=== PATIENT | male | born 1945 | race Caucasian/White ===

== ENCOUNTER 2023-08-02 21:14 | Outpatient (CLI) | payer MEDICARE, SELFPAY ==
[2023-08-02 19:02] LABS: Microscopic, Urine URINE MICROSCOPIC (MICROSCOPIC)
[2023-08-02 19:09] LABS: Appearance,Urine CLEAR (Clear); Bilirubin,Urine Negative (Negative); Blood, Urine Negative (Negative); Color,Urine YELLOW (Yellow); Glucose,Urine (UA) Negative (Negative); Ketones,Urine TRACE (Negative); Leukocyte Esterase,Urine Negative (Negative); Nitrate,Urine Negative (Negative); Protein,Urine TRACE (Negative); Specific Gravity, Urine 1.025 (1.005-1.030); Urobilinogen,Urine 0.2 EU/dl (0.2)
[2023-08-02 19:14] LABS: Chloride 99 mmol/L (98-107)
[2023-08-02 19:15] LABS: Potassium 4.1 mmoL/L (3.5-5.1); Sodium 137 mmol/L (136-145)
[2023-08-02 19:17] LABS: Alanine Aminotransferase 20 U/L (12-78); Aspartate Amino Transferase 34 U/L (17-59); Blood Urea Nitrogen 22 mg/dl (9-20); Estimated Glomerular Filt Rate 65 ml/min (>60); GFR (African American) 79 ML/MIN (>60)
[2023-08-02 19:18] LABS: Albumin Level 4.5 g/dl (3.5-5.0); Albumin/Globulin Ratio 1.5 (1.1-1.8); Alkaline Phosphatase 74 U/L (38-126); Anion Gap 14.1 mEq/L (5-15); Bilirubin,Total 0.4 mg/dl (0.2-1.3); Calcium 9.2 mg/dl (8.4-10.2); Carbon Dioxide 28 mmol/L (22.0-30.0); Glucose 96 mg/dl (74-100); Iron 95 ug/dL (49-181); Lipase 137 U/L (23-300); Total Protein,Serum 7.5 g/dl (6.3-8.2)
[2023-08-02 19:23] LABS: Basophils % 0.2 % (0.1-2.0); Eosinophils # 0.1 K/mm3 (0.0-0.4); Eosinophils % 0.9 % (0.1-12.0); Hematocrit 41.4 % (42.0-52.0); Hemoglobin 14.1 g/dL (14.1-18.0); Lymphocytes # 2.4 K/mm3 (0.7-4.5); Lymphocytes % 16.7 % (10-50); Mean Corpuscular HGB Conc 34.2 g/dL (31.8-35.4); Mean Corpuscular Hemoglobin 33.2 pg (27.0-31.2); Mean Corpuscular Volume 97.1 fl (80-94); Mean Platelet Volume 10.7 fl (7.4-10.4); Monocytes % 6.7 % (1.7-9.3); Neutrophils % 75.5 % (37.0-80.0); Platelet Count 185 K/mm3 (142-424); Red Blood Count 4.26 M/mm3 (4.60-6.20); Red Cell Distribution Width 13.1 % (11.5-17.5); White Blood Count 14.5 K/mm3 (4.8-10.8)
[2023-08-02 19:27] LABS: Total Iron Binding Capacity 310 ug/dL (261-462)
[2023-08-02 19:34] LABS: 25-OH Vitamin D, Total 52.8 ng/mL (30-100); Free T4 (Free Thyroxine) 1.38 ng/dl (0.78-2.19)
[2023-08-02 19:55] LABS: Erythrocyte Sedimentation Rate 16 mm/hr (0-20)
[2023-08-02 20:11] LABS: Chol/HDL Ratio 3.4 (1-3.5); Cholesterol 117 mg/dl (140-200); HDL Cholesterol 34 mg/dl (40-60); Triglycerides 100 mg/dl (30-150); VLDL Cholesterol 20 mg/dL (0-40)
[2023-08-02 20:22] LABS: Direct LDL Cholesterol 60.97 mg/dL (100-129)
[2023-08-02 20:37] LABS: C-Reactive Protein 0.6 mg/L (0-4)
[2023-08-02 20:42] LABS: Prostate Specific Ag Screen 0.4 ng/ml (0.0-4.0); Thyroid Stimulating Hormone 0.65 uIU/mL (0.465-4.68)
[2023-08-02 21:01] LABS: Vitamin B12 239 pg/mL (239-931)
[2023-08-02 21:42] LABS: Bacteria,Urine Trace /lpf; Mucus,Urine 1+ /lpf; Squamous Epithelial Cell,Urine Occasional #/hpf (0-5)
[2023-08-04 06:25] LABS: HBsAg Screen Negative (Negative); HCV Ab Non Reactive (Non Reactive); Hep A Ab, IGM Negative (Negative); Hep B Core Ab, IgM Negative (Negative)
== END 2023-08-02 23:59 ==
PROVIDERS: PCP Nurse Practitioner Family; Visit Provider Nurse Practitioner Family
DX: E55.9 Vitamin D deficiency, unspecified (principal); R63.4 Abnormal weight loss; R53.83 Other fatigue; K52.9 Noninfective gastroenteritis and colitis, unspecified; Z12.5 Encounter for screening for malignant neoplasm of prostate; R68.2 Dry mouth, unspecified; D64.9 Anemia, unspecified; E78.5 Hyperlipidemia, unspecified
CPT/HCPCS: 80053; 80061; 80074; 81001; 82306; 82607; 82728; 83540; 83550; 83690; 84439; 84443; 85025; 85651; 86140; 87086; G0103

== ENCOUNTER 2023-08-03 10:54 | Outpatient (CLI) | payer MEDICARE, SELFPAY ==
[2023-08-03 10:59] LABS: Adenovirus F 40/41, stool Not Detected (NotDetected); Astrovirus Not Detected (NotDetected); Campylobacter Not Detected (NotDetected); Clostridium Difficile A/B, PCR Not Detected (NotDetected); Cryptosporidium Not Detected (NotDetected); Cyclospora Cayetanesis Not Detected (NotDetected); Entamoeba histolytica Not Detected (NotDetected); Enteroaggregative E coli Not Detected (NotDetected); Enteropathogenic E coli Not Detected (NotDetected); Enterotoxigenic E coli Not Detected (NotDetected); Giardia lamblia Not Detected (NotDetected); Norovirus Not Detected (NotDetected); Plesimonas Shigalloides, PCR Not Detected (NotDetected); Rotavirus A Not Detected (NotDetected); Salmonella, PCR Not Detected (NotDetected); Shiga-like toxin E coli Not Detected (NotDetected); Shigella Enterovasive E coli Not Detected (NotDetected); Vibrio Cholerae Not Detected (NotDetected); Vibrio, PCR Not Detected (NotDetected); Yersinia Entercolitica, PCR Not Detected (NotDetected)
[2023-08-03 14:21] LABS: Occult Blood,Stool Negative (Negative)
[2023-08-08 07:53] LABS: Sapovirus Not Detected (NotDetected)
== END 2023-08-03 23:59 ==
PROVIDERS: PCP Nurse Practitioner Family; Visit Provider Nurse Practitioner Family
DX: R19.7 Diarrhea, unspecified; R53.83 Other fatigue; R63.4 Abnormal weight loss
CPT/HCPCS: 82272; 87045; 87506; G0328

== ENCOUNTER 2023-08-04 13:35 | Outpatient (CLI) | payer MEDICARE, SELFPAY ==
--- NOTE | 2023-08-04 13:35 | CT_ITS ---
FINAL REPORT TECHNIQUE: Axial CT images of the abdomen and pelvis were obtained before and after the administration of IV contrast. This study was performed with techniques to keep radiation doses as low as reasonably achievable (ALARA). Individualized dose reduction techniques using automated exposure control or adjustment of mA and/or kV according to the patient''s size were employed. CLINICAL HISTORY: RUQ pain, chronic diarrhea, unintentional wt loss COMPARISON: None FINDINGS: Abdomen: There is mild atelectasis or scar in the right lung base. The heart is normal in size. There is a cyst in the medial segment of the left hepatic lobe measuring 11 mm. There is mild nonspecific biliary ductal dilatation. The spleen is unremarkable. No adrenal masses present. The pancreas has an unremarkable appearance. There are multiple bilateral renal cysts. The aorta is normal in caliber. There is no free fluid or adenopathy. No mass or abnormal fluid collection is seen. Precontrast images demonstrate no evidence of nephrolithiasis. Pelvis: The appendix is not visualized. The urinary bladder is unremarkable. No inflammatory process is seen. There is no evidence of mass or adenopathy. There is a moderate stool burden. There is no evidence of bowel obstruction. IMPRESSION: Mild biliary duct dilatation, nonspecific. If indicated, MRCP may be helpful. No acute inflammatory process. Reviewed, Interpreted and Dictated by Mayito Clarke III, MD Transcribed by Breonna Osorio Authenticated and [facility]
[2023-08-04] MEDS: SODIUM CHLORIDE 0.9% 10ML SYR (RAD ONLY) 10 ML IV (13:59)
[2023-08-04] MEDS: IOPAMIDOL-370 (76%);100ML BOTTLE 75 ML IV (14:00)
== END 2023-08-04 23:59 ==
PROVIDERS: PCP Nurse Practitioner Family; Visit Provider Nurse Practitioner Family
DX: K52.9 Noninfective gastroenteritis and colitis, unspecified (principal); R10.11 Right upper quadrant pain; R53.83 Other fatigue; R63.4 Abnormal weight loss
CPT/HCPCS: 74178; Q9967

== ENCOUNTER 2023-08-09 07:41 | Day surgery (SDC) | payer MEDICARE, SELFPAY ==
[2023-08-08 15:18] VITALS: BMI 23.6
[2023-08-09] MEDS: LACTATED RINGERS 1000ML 1,000 ML 25 ML IV (07:53)
[2023-08-09 07:54] VITALS: BP 157/56; PULSE 72; RESP 18; TEMP 36.1; O2SAT 100
--- NOTE | 2023-08-09 08:03 | P.PNANES_ITS ---
[facility] Disclaimer: The information contained in this section may have been updated after the patient was seen, as this information can be updated by other users. Medical History History of MN (myocardial infarction) HLD (hyperlipidemia) HTN (hypertension) Surgical History History of coronary artery bypass graft History of intravascular stent placement Family History Father Cancer Social History Smoking Status: Current every day smoker alcohol intake: never substance use type: denies use current occupational status: retired Travel in the last 8 weeks: None household members: spouse housing: house lives independently: Yes marital status: [facility] Anesthesia Checklist Patient Identification Patient Identification: Arm Band and Family Structural Data Admitted From: Home Planned Operative Procedure/s: EGD, Colonosopy Consent for Planned Operative Procedure(s) Verified: Yes Verified Documents: Surgical Consent NPO Status Verified Time NPO: 00:00 Additional verifications Anesthesia Reactions: No Hx Blood Transfusions: Yes Blood Transfusion Reaction: No Cephalosporin Allergy: No Previous Colonoscopy: Yes Airway Assessment Mallampati Score:: Class II C-Spine Mobility Assessed: Yes TMJ Mobility Assessed: Yes Dentition: Good Dentition Neurological Assessment Level of Consciousness: Awake, Alert, Appropriate and Follows Commands Hx Seizures: No Numbness or tingling in extremities: No Anesthesia Plan Anesthesia Risk discussed: Yes ASA Class: III Anesthesia Type: MAC Preoperative Comments Pre-Operative Comments: History of MN 21 years ago. Stents.
[2023-08-09 08:54] VITALS: O2SAT 100
--- NOTE | 2023-08-09 09:25 | HMH.SCOPE ---
Procedure: Date: 08/09/23 Patient Date of :: 1945 Procedure Performed:: Colonoscopy Indications:: The patient is a 77-year-old who presents for colonoscopy evaluation of chronic diarrhea. Patient reports diarrhea symptoms since early May. The patient has had multiple liquid bowel movements a day. The patient denies nocturnal stools. The patient has unremarkable stool pathogen testing. Performing Provider:: Yinka Simons MD Referring Provider:: Betty Fatima APRN Sedation:: See RN notes Procedure:: After placing the patient in the left lateral decubitus position, the colonoscopy was gently inserted into the rectum and under direct visualization advanced to the cecum which was identified by transillumination in the right lower quadrant, identification of the ileocecal valve, appendiceal orifice, and cecal strap. Color, texture, mucosa, and anatomy of the colon were carefully examined with the scope. Findings:: The quality of the bowel preparation was good. The patient tolerated the procedure well. There was a small (4 to 6 mm) sessile polyp in the descending colon. The polyp was removed by cold snare polypectomy. Polypectomy was complete and the polyp was retrieved. There was a small (4 to 6 mm) sessile polyp in the distal ascending colon. Polyp was removed by cold snare polypectomy. Polypectomy was complete and the polyp was retrieved. Random colon biopsies were obtained throughout the colon to evaluate for microscopic colitis. Internal hemorrhoids were seen on retroflexion view of the rectum. Recommendations:: Await pathology results Follow-up in GI office for further evaluation of abdominal pain and diarrhea Complications:: none Estimated blood obtained (mL): 0 Colonoscopy Component Colonoscopy Component Was a colonoscopy performed during today's procedure?: Yes Recommended follow up colonoscopy of at least 10 years?: Yes
[2023-08-09 09:27] VITALS: BP 93/37; PULSE 68; RESP 15; TEMP 36.7; O2SAT 98
--- NOTE | 2023-08-09 09:29 | HMH.SCOPE ---
Procedure: Date: 08/09/23 Patient Date of :: 1945 Procedure Performed:: EGD Indications:: The patient is a 77-year-old who presents for EGD evaluation of upper abdominal pain and diarrhea Performing Provider:: Yinka Simons MD Referring Provider:: Betty Fatima APRN Sedation:: See RN records Procedure:: The gastroscope was gently passed through the incisoral orifice into the oral cavity and under direct visualization the esophagus was intubated. The endoscope was passed down the esophagus, through the stomach, and into the duodenum. Color, texture, mucosa, and anatomy of the esophagus, stomach, and duodenum were carefully examined with the scope. The patient tolerated the procedure well Findings:: The esophagus appeared normal. The Z-line was regular and measured at 40 cm. There was mild inflammation characterized by erythema in the gastric antrum and body. Biopsies were obtained with a cold forceps for histology. The duodenum appeared normal. Biopsies were obtained with a cold forceps for histology Recommendations:: Wait pathology results Move forward to colonoscopy for evaluation of abdominal pain and diarrhea Complications:: None Estimated blood obtained (mL): 0 Colonoscopy Component Colonoscopy Component Was a colonoscopy performed during today's procedure?: No
[2023-08-09 09:37] VITALS: BP 96/49; PULSE 84; RESP 17; O2SAT 99
[2023-08-09 09:50] VITALS: BP 122/79; PULSE 68; RESP 17; O2SAT 98
== END 2023-08-09 10:15 | disposition home or self-care (01) ==
PROVIDERS: Internal Medicine; PCP Nurse Practitioner Family; Visit Provider Internal Medicine Gastroenterology
PROC: 0DJ08ZZ Inspection of Upper Intestinal Tract, Via Natural or Artificial Opening Endoscopic (ICD-10-PCS; CPT 43235; principal; 2023-08-09 09:00)
DX: K52.9 Noninfective gastroenteritis and colitis, unspecified (principal); K64.8 Other hemorrhoids; R10.10 Upper abdominal pain, unspecified; K29.50 Unspecified chronic gastritis without bleeding; B96.81 Helicobacter pylori [H. pylori] as the cause of diseases classified elsewhere; K31.A0 Gastric intestinal metaplasia, unspecified; D12.2 Benign neoplasm of ascending colon; K52.832 Lymphocytic colitis; D12.4 Benign neoplasm of descending colon
CPT/HCPCS: 43239; 45385; 88305; 88342; J2704

== ENCOUNTER 2023-09-15 08:06 | Outpatient (CLI) | payer MEDICARE, SELFPAY ==
--- NOTE | 2023-09-15 08:07 | MR_ITS ---
FINAL REPORT CLINICAL HISTORY: diarrhea COMPARISON: None FINDINGS: Multiplanar MR imaging of the abdomen was performed without and with contrast. There is a benign-appearing cysts in the medial segment of the left lower lobe of the liver measuring 1.3 cm. The liver is otherwise homogeneous. There is prominence of the extrahepatic biliary system. The common duct measures 9 mm in diameter. There is no evidence of choledocholithiasis. There is no definite intrahepatic ductal dilatation. The gallbladder has an unremarkable appearance. The spleen, pancreas, and adrenal glands are unremarkable. There are benign-appearing cysts in the kidneys bilaterally. Dominant cyst in the posterior left kidney measures up to 1.5 cm. There is linear increased signal in the posterior left kidney associated with the dominant cyst probably related to proteinaceous debris. There is no evidence of enhancement. No abnormal fluid collection is seen. No abnormal contrast enhancement is seen on the postcontrast images. IMPRESSION: Distention of the common bile duct without definite choledocholithiasis and no definite intrahepatic biliary ductal dilatation. Benign cyst in the left lobe of the liver. Complex and simple cysts in the kidneys bilaterally. Reviewed, Interpreted and Dictated by Demetrio Miner MD Transcribed by Breonna Osorio Authenticated and [facility]
[2023-09-15 08:53] LABS: Blood Urea Nitrogen 15 mg/dl (9-20); Estimated Glomerular Filt Rate 54 ml/min (>60); GFR (African American) 65 ML/MIN (>60)
[2023-09-15] MEDS: SODIUM CHLORIDE 0.9% 10ML SYR (RAD ONLY) 10 ML IV (09:40)
[2023-09-15] MEDS: SODIUM CHLORIDE 0.9% 50ML BAG 35 ML IV (09:40)
[2023-09-15] MEDS: GADOTERIDOL INJ 17ML SYRINGE 15 ML IV (09:41)
== END 2023-09-15 23:59 ==
LOC: RAD 08:07
PROVIDERS: PCP Nurse Practitioner Family; Visit Provider Nurse Practitioner Family
DX: R10.11 Right upper quadrant pain; K52.9 Noninfective gastroenteritis and colitis, unspecified; R53.83 Other fatigue; R63.4 Abnormal weight loss; Z68.26 Body mass index [BMI] 26.0-26.9, adult
CPT/HCPCS: 36415; 74183; 76376; 82565; 84520; A9576

== ENCOUNTER 2023-09-27 13:01 | Observation (INO) | payer MEDICARE, SELFPAY ==
[2023-09-27] VITALS (16 sets, daily range): BP systolic 91–131; BP diastolic 54–70; PULSE 48–60; RESP 12–20; TEMP 35.1–36.6; O2SAT 95–100; BMI 25.9
--- NOTE | 2023-09-27 12:59 | ECG_ITS ---
APPROVED REPORT Exam: Resting ECG HR:53 bpm ECG Measurements Heart Rate 53 AXES CO 191 P 39 QRSd 173 QRS -41 QT 475 T 50 QTc 457 Conclusion SINUS BRADYCARDIA WITH OCCASIONAL VENTRICULAR PREMATURE COMPLEXES WITH OCCASIONAL SUPRAVENTRICULAR PREMATURE COMPLEXES LEFT AXIS DEVIATION [QRS AXIS < -30] RIGHT BUNDLE BRANCH BLOCK [120+ ms QRS DURATION, UPRIGHT V1, 40+ ms S IN I/aVL/V4/V5/V6] ABNORMAL ECG Electronically signed by : MARCOS REED, 09/27/2023 23:11:38
--- NOTE | 2023-09-27 13:11 | PC.NURSE ---
pt placed with chase hugger, warm fluids and warm blankets for rectal temp of 95.1.
--- NOTE | 2023-09-27 13:23 | XR_ITS ---
FINAL REPORT CLINICAL HISTORY: weakness, soa, cp FINDINGS: SINGLE-VIEW CHEST There is cardiomegaly. The patient is status post median sternotomy. There is right base atelectasis versus scar. There is no pneumothorax. IMPRESSION: Right base atelectasis versus scar. Reviewed, Interpreted and Dictated by Mayito Clarke III, MD Transcribed by Poly Bryant Authenticated and [facility]
--- NOTE | 2023-09-27 13:27 | PC.NURSE ---
Respiratory notified of VBG
--- NOTE | 2023-09-27 13:31 | CT_ITS ---
FINAL REPORT CLINICAL HISTORY: stroke protocol FINDINGS: Axial images of the head were obtained without contrast. Coronal reformatted images were also obtained. This study was performed with techniques to keep radiation doses as low as reasonably achievable (ALARA). Individualized dose reduction techniques using automated exposure control or adjustment of mA and/or kV according to the patient's size were employed. There is generalized age-appropriate atrophy. Periventricular low-attenuation areas are seen consistent with mild chronic ischemic changes. There is no evidence of intracranial hemorrhage or mass. There is no evidence of acute infarct. There is no evidence of shift of the midline structures. No skull abnormality is seen on the bone window images. IMPRESSION: Atrophy and mild periventricular chronic ischemic changes. No acute intracranial abnormality identified. Reviewed, Interpreted and Dictated by Mayito Clarke III, MD Transcribed by Poly Bryant Authenticated and [facility]
--- NOTE | 2023-09-27 13:31 | PC.NURSE ---
Called Radiology to notify of stroke protocol CT scan
[2023-09-27 13:32] LABS: Basophils # 0.1 K/mm3 (0-0.2); Basophils % 0.4 % (0.1-2.0); Eosinophils # 0.1 K/mm3 (0.0-0.4); Eosinophils % 0.6 % (0.1-12.0); Hematocrit 45.1 % (42.0-52.0); Hemoglobin 14.1 g/dL (14.1-18.0); Lymphocytes # 1.7 K/mm3 (0.7-4.5); Lymphocytes % 9.6 % (10-50); Mean Corpuscular HGB Conc 31.4 g/dL (31.8-35.4); Mean Corpuscular Hemoglobin 32.5 pg (27.0-31.2); Mean Corpuscular Volume 103.5 fl (80-94); Mean Platelet Volume 8.5 fl (7.4-10.4); Monocytes # 0.7 K/mm3 (0.1-1.0); Monocytes % 4.1 % (1.7-9.3); Neutrophils # 15.2 K/mm3 (1.8-7.8); Neutrophils % 85.3 % (37.0-80.0); Platelet Count 190 K/mm3 (142-424); Red Blood Count 4.36 M/mm3 (4.60-6.20); Red Cell Distribution Width 13.9 % (11.5-17.5); White Blood Count 17.8 K/mm3 (4.8-10.8)
[2023-09-27 13:36] LABS: Alanine Aminotransferase 29 U/L (12-78); Albumin Level 3.7 g/dl (3.5-5.0); Albumin/Globulin Ratio 1.3 (1.1-1.8); Alkaline Phosphatase 58 U/L (38-126); Anion Gap 8.4 mEq/L (5-15); Aspartate Amino Transferase 38 U/L (17-59); Bilirubin,Total 0.4 mg/dl (0.2-1.3); Blood Urea Nitrogen 20 mg/dl (9-20); Calcium 9.2 mg/dl (8.4-10.2); Carbon Dioxide 29 mmol/L (22.0-30.0); Chloride 105 mmol/L (98-107); Creatinine Clearance Estimated 52 mL/min (50-200); Estimated Glomerular Filt Rate 54 ml/min (>60); GFR (African American) 65 ML/MIN (>60); Globulin 2.8 g/dL (1.3-3.2); Glucose 104 mg/dl (74-100); Potassium 4.4 mmoL/L (3.5-5.1); Sodium 138 mmol/L (136-145); Total Protein,Serum 6.5 g/dl (6.3-8.2)
[2023-09-27 13:38] LABS: VBG Base Excess -1.6 mmol/L (-2.4-2.3); VBG HCO3 25.3 mmol/L (23-30); VBG Oxygen Saturation 45.3 % (50-70); VBG PCO2 55.9 mmol/L (35-51); VBG PH 7.27 mmol/L (7.31-7.41); VBG PO2 26.8 mmol/L (28-40)
[2023-09-27 13:41] LABS: Lactate Venous 2.3 mmol/L (0.4-2.0)
[2023-09-27 13:42] LABS: MANUAL DIFFERENTIAL MANUAL DIFFERENTIAL (MANUAL DIFF)
--- NOTE | 2023-09-27 13:45 | HMH.EDGENADL ---
Discharge Plan Disposition Patient Disposition: Admitted Clinical Impressions Clinical Impression: Weakness, Angina pectoris, unstable, Acute dyspnea Discharge ED Provider: Raad Martinez General Adult HPI <Lexa Archibald MD - Last Filed: 09/27/23 15:09> General Chief complaint: Weakness Stated complaint: weakness,itching Time Seen by Provider: 09/27/23 13:05 Mode of Arrival: EMS Source of Information: Patient and EMS Limitations: No Limitations Description of Symptoms (Recalled from ER Triage Doc. by RN): pt to ed via ems c/o weakness. pt states he became itchy, broke out in a rash and became weak. pt states he was at the gas station getting gas and immediately came home. ems reports giving 50mg of benadryl and 500ml of LR in route. History of Present Illness HPI narrative: 77-year-old male history of hypertension, hyperlipidemia, CAD status post 5 vessel CABG and stenting, presenting with weakness, shortness of breath, multiple complaints. Patient states that just prior to arrival, [place] that he was itching on his scalp, face, hands, feet, that he developed a red rash. [place] lightheaded, weak, short of breath. Had a couple episodes of vomiting. No syncope. Was brought here for further evaluation by EMS. Family states that patient seems delayed, not confused, just tired. Patient not currently having any symptoms at this time. Please note that above description of symptoms, in this electronic medical record under categorization of recalled from ER triage doctor by RN are reflective of an initial nursing assessment, however, is not reflective of my full history and physical exam that was personally taken and clarified. Consequentially, this preceding description of symptoms, which may include the patient's categorized chief complaint in the EMR, do not reflect my personal clinical impression, and the ultimate description of history of present illness and patient stated complaints should be deferred to this section of the note. Unless stated otherwise or congruent with this section of the note, additional signs, symptoms, or incongruence should be interpreted as inaccurate with my clinical impression. Related Data Home Medications Medication Instructions Recorded Confirmed losartan 50 mg tablet 50 mg PO DAILY 08/02/23 08/08/23 metoprolol tartrate 25 mg tablet 12.5 mg PO DAILY 08/02/23 08/08/23 rosuvastatin 40 mg tablet 20 mg PO DAILY 08/02/23 08/08/23 sertraline 50 mg tablet 50 mg PO DAILY 08/02/23 08/09/23 Previous Rx's Medication Instructions Recorded omeprazole 20 mg capsule,delayed 20 mg PO BID 14 days #28 caps 08/15/23 release budesonide 3 mg 3 mg PO BID Lymphocytic colitis 09/07/23 capsule,delayed,extended release #60 ea Allergies Allergy/AdvReac Type Severity Reaction Status Date / Time amoxicillin Allergy Intermediate Rash Verified 09/07/23 15:23 [facility] <Lexa Archibald MD - Last Filed: 09/27/23 15:09> [facility] Disclaimer: The information contained in this section may have been updated after the patient was seen, as this information can be updated by other users. Medical History (Updated 09/27/23 @ 16:36 by Raad Martinez MD) Abnormal electrocardiogram [ECG] [EKG] CAD in [place] artery Unstable angina History of IN (myocardial infarction) HLD (hyperlipidemia) HTN (hypertension) Surgical History (Updated 09/27/23 @ 15:53 by Flor Cole APRN) S/P CABG x 5 History of coronary artery bypass graft History of intravascular stent placement Family History Father Cancer prostate Social History Smoking Status: Never smoker alcohol intake: never substance use type: denies use current occupational status: retired Travel in the last 8 weeks: None household members: spouse housing: house lives independently: Yes marital status: <Lexa Archibald MD - Last Filed: 09/27/23 15:09> ROS Obtained: Yes All systems reviewed & no additional complaints except as documented Physical Exam <Lexa Archibald MD - Last Filed: 09/27/23 15:09> General General appearance: alert and in no apparent distress Head Head exam: atraumatic and normocephalic Eye Eye exam: Present normal appearance, PERRL (2 mm and reactive) and EOMI ENT ENT exam: Present mucous membranes moist Neck Neck exam: Present normal inspection, full ROM and trachea midline Chest Chest inspection: Present normal inspection and symmetric chest wall rise; Absent tenderness Respiratory Respiratory exam: Present normal lung sounds bilaterally; Absent respiratory distress, wheezes, stridor, accessory muscle use or prolonged expiratory phase Cardiovascular Cardiovascular exam: Present normal rhythm, bradycardia and normal heart sounds Abdominal Exam Abdominal exam: Present soft; Absent distention, tenderness, guarding, rebound or rigidity Extremities Exam Extremities exam: Absent edema Neurological Exam Neurological exam: Present alert, oriented X3, CN II-XII intact and normal gait; Absent motor sensory deficit Skin Skin exam: Present warm and dry; Absent diaphoresis or erythema Medical Decision Making <Lexa Archibald MD - Last Filed: 09/27/23 15:09> Medical Records Medical records reviewed: Yes I reviewed the patient's medical records. Abimael Inquiry Pt receiving controlled substance: No Abimael was queried for this patient: No Vital Signs: 09/27/23 12:59 09/27/23 13:01 09/27/23 13:10 Temperature 95.1 F L Temperature Source Rectal Pulse Rate 55 L 56 L Pulse Rate [Left Radial] 55 L Respiratory Rate 14 13 20 Blood Pressure 117/57 L 122/62 Blood Pressure [Right Arm] 117/57 L Blood Pressure Mean [Right Arm] 77 02 Sat by Pulse Oximetry 99 99 95 Oxygen Delivery Method Room Air Room Air Room Air 09/27/23 13:32 09/27/23 13:50 09/27/23 14:00 Temperature Temperature Source Pulse Rate 48 L 50 L 49 L Pulse Rate [Left Radial] Respiratory Rate 16 12 18 Blood Pressure 95/61 L 91/59 L 112/54 L Blood Pressure [Right Arm] Blood Pressure Mean [Right Arm] 02 Sat by Pulse Oximetry 96 100 98 Oxygen Delivery Method Room Air Room Air Room Air 09/27/23 14:09 09/27/23 14:30 09/27/23 14:30 Temperature 97.7 F Temperature Source Oral Pulse Rate 48 L 50 L Pulse Rate [Left Radial] Respiratory Rate 18 18 Blood Pressure 107/57 L 107/58 L Blood Pressure [Right Arm] Blood Pressure Mean [Right Arm] 02 Sat by Pulse Oximetry 97 96 Oxygen Delivery Method Room Air 09/27/23 15:01 09/27/23 15:31 09/27/23 16:00 Temperature Temperature Source Pulse Rate 54 L 56 L 52 L Pulse Rate [Left Radial] Respiratory Rate 19 20 Blood Pressure 111/59 L 131/66 112/56 L Blood Pressure [Right Arm] Blood Pressure Mean [Right Arm] 02 Sat by Pulse Oximetry 96 98 97 Oxygen Delivery Method Room Air Room Air Lab Data Lab Results 09/27/23 13:08: WBC 17.8 H, RBC 4.36 L, Hgb 14.1, Hct 45.1, MCV 103.5 H, MCH 32.5 H, MCHC 31.4 L, RDW 13.9, Plt Count 190, MPV 8.5, Neut % (Auto) 85.3 H, Lymph % (Auto) 9.6 L, Hettinger % (Auto) 4.1, Eos % (Auto) 0.6, Baso % (Auto) 0.4, Neut # (Auto) 15.2 H, Lymph # (Auto) 1.7, Hettinger # (Auto) 0.7, Eos # (Auto) 0.1, Baso # (Auto) 0.1, Total Counted 100, Neutrophils % (Manual) 94 H, Lymphocytes % (Manual) 5 L, Monocytes % (Manual) 1 L, Platelet Estimate Normal, Macrocytosis 1+, Sodium 138, Potassium 4.4, Chloride 105, Carbon Dioxide 29, Anion Gap 8.4, BUN 20, Creatinine 1.30 H, Estimated Creat Clear 52, Estimated GFR 54 L, Est GFR ( Amer) 65, Glucose 104 H, Lactate 2.0, Calcium 9.2, Total Bilirubin 0.4, AST 38, ALT 29, Alkaline Phosphatase 58, Troponin I < 0.01 09/27/23 13:08: Troponin I < 0.01, NT-Pro-B Natriuret Pep 620 H, Total Protein 6.5, Albumin 3.7, Globulin 2.8, Albumin/Globulin Ratio 1.3, TSH 1.73, Free T4 1.06 09/27/23 13:28: VBG pH 7.27 L, VBG pCO2 55.9 H, VBG pO2 26.8 L, VBG HCO3 25.3, VBG Total CO2 27.0, VBG O2 Saturation 45.3 L, VBG Base Excess -1.6, VBG Lactic Acid 2.3 H 09/27/23 13:08 09/27/23 13:08 Orders (Tests/Meds): ED MEDICATIONS Generic Name Dose Route Start Last Admin Trade Name Freq PRN Reason Stop Dose Admin Diphenhydramine HCl 50 mg 09/28/23 13:00 Diphenhydramine 50mg/Ml Vial IV 04/11/24 13:01 ONCE ONE Sodium Chloride 1,000 mls @ 125 mls/hr 09/27/23 14:00 09/27/23 13:55 Sod Chlor 0.9% 1000ml Bag IV 10/27/23 13:59 125 mls/hr .Q8H JOHNY Administration Miscellaneous 1 each 09/27/23 14:00 09/27/23 14:01 Vancomycin Consult Request NOTAPPLIC 10/27/23 13:59 1 each CONSULT PHARMACY JOHNY Administration Discontinued Medications Generic Name Dose Route Start Last Admin Trade Name Freq PRN Reason Stop Dose Admin Cefepime HCl 2 gm/ Sodium 100 mls @ 200 mls/hr 09/27/23 13:50 09/27/23 14:16 Chloride IV 09/27/23 14:19 200 mls/hr ONCE ONE Administration Vancomycin/PEG/NADA/Lysine/Water 1.25 gm in 250 mls @ 125 mls/hr 09/27/23 14:00 09/27/23 14:23 Vancomycin 1.25gm/250ml (Peg) Premix IV 09/27/23 15:59 125 mls/hr ONCE ONE Administration ORDERS Category Date Time Status CT head/brain wo con Stat Cat Scan 09/27/23 13:31 Completed CXR --portable [XR chest portable] Stat Exams 09/27/23 13:23 Completed Basic Metabolic Panel AMLAB Lab 09/28/23 06:00 Ordered CBC w/Auto Diff [Complete Blood Count Auto Diff] Stat Lab 09/27/23 13:08 Completed CMP [Comprehensive Metabolic Panel] Stat Lab 09/27/23 13:08 Completed Complete Blood Count Auto Diff AMLAB Lab 09/28/23 06:00 Ordered Free T4 (Free Thyroxine) Stat Lab 09/27/23 13:08 Completed Lactic Acid Stat Lab 09/27/23 13:08 Completed Lipid Panel AMLAB Lab 09/28/23 06:00 Ordered Liver Panel AMLAB Lab 09/28/23 06:00 Ordered NT Pro Brain Natriuretic Pep. Stat Lab 09/27/23 13:08 Completed TSH [Thyroid Stimulating Hormone] Stat Lab 09/27/23 13:08 Completed Trop I [Troponin I] Stat Lab 09/27/23 13:08 Completed Troponin I Q3H Lab 09/27/23 13:08 Completed Troponin I Q3H Lab 09/27/23 19:30 Ordered UA [Urinalysis and Microscopic] Stat Lab 09/27/23 15:06 Ordered Blood Culture Stat Micro 09/27/23 13:36 Received Venous Blood Gas Stat RT 09/27/23 13:28 Completed CA echo doppler complete Stat Y 09/27/23 15:26 Completed Medical Decision Narrative: 77-year-old male history of hypertension, hyperlipidemia, CAD status post 5 vessel CABG and stenting, presenting with weakness, shortness of breath, multiple complaints. Patient states that just prior to arrival, he was [place] that he was itching on his scalp, face, hands, feet, that he developed a red rash. [place] lightheaded, weak, short of breath. Had a couple episodes of vomiting. No syncope. Was brought here for further evaluation by EMS. Family states that patient seems delayed, not confused, just tired. Patient not currently having any symptoms at this time. History obtained with patient, family, EMS. On arrival, patient hemodynamically stable, alert, oriented, appropriate. He has bradycardia cardiac 50 bpm, normotensive. Hypothermic 95 degrees rectally. NIHSS 0. Cardiac exam within normal limits, no lower extremity edema. Patient nondiaphoretic, nonerythematous, in no acute distress. Answering questions appropriately. Lungs are clear to auscultation bilaterally without wheezes, crackles, rales. Abdomen is soft, nontender, nondistended. Patient not actively retching. Pupils are 2 mm and reactive bilaterally, overall unremarkable physical exam. Differential includes ACS, IN, pneumothorax, CAD, toxidrome, medication side effect, pneumonia, sepsis, UTI, among others. Independent interpretation of workup he is bradycardic Independent interpretation of workup demonstrates leukocytosis 18,000 with neutrophilia. VBG with pH 7.27, CO2 mildly elevated at 55, bicarb within normal limits. Lactate mildly elevated 2.3. Chemistry nonactionable, kidney function appears stable. LFTs normal, initial troponin negative, BNP 620. Chest x-ray without acute concern for cardiopulmonary airspace disease. No evidence of pulmonary edema. CT head without acute intracranial abnormality. Family updated on reevaluation, patient appears stable. He was given empiric vancomycin and cefepime. Prior to delta troponin and disposition, care handed off to oncoming physician. <Raad Martinez MD - Last Filed: 09/27/23 16:36> Vital Signs: 09/27/23 12:59 09/27/23 13:01 09/27/23 13:10 Temperature 95.1 F L Temperature Source Rectal Pulse Rate 55 L 56 L Pulse Rate [Left Radial] 55 L Respiratory Rate 14 13 20 Blood Pressure 117/57 L 122/62 Blood Pressure [Right Arm] 117/57 L Blood Pressure Mean [Right Arm] 77 02 Sat by Pulse Oximetry 99 99 95 Oxygen Delivery Method Room Air Room Air Room Air 09/27/23 13:32 09/27/23 13:50 09/27/23 14:00 Temperature Temperature Source Pulse Rate 48 L 50 L 49 L Pulse Rate [Left Radial] Respiratory Rate 16 12 18 Blood Pressure 95/61 L 91/59 L 112/54 L Blood Pressure [Right Arm] Blood Pressure Mean [Right Arm] 02 Sat by Pulse Oximetry 96 100 98 Oxygen Delivery Method Room Air Room Air Room Air 09/27/23 14:09 09/27/23 14:30 09/27/23 14:30 Temperature 97.7 F Temperature Source Oral Pulse Rate 48 L 50 L Pulse Rate [Left Radial] Respiratory Rate 18 18 Blood Pressure 107/57 L 107/58 L Blood Pressure [Right Arm] Blood Pressure Mean [Right Arm] 02 Sat by Pulse Oximetry 97 96 Oxygen Delivery Method Room Air 09/27/23 15:01 09/27/23 15:31 09/27/23 16:00 Temperature Temperature Source Pulse Rate 54 L 56 L 52 L Pulse Rate [Left Radial] Respiratory Rate 19 20 Blood Pressure 111/59 L 131/66 112/56 L Blood Pressure [Right Arm] Blood Pressure Mean [Right Arm] 02 Sat by Pulse Oximetry 96 98 97 Oxygen Delivery Method Room Air Room Air Lab Data Lab Results 09/27/23 13:08: WBC 17.8 H, RBC 4.36 L, Hgb 14.1, Hct 45.1, MCV 103.5 H, MCH 32.5 H, MCHC 31.4 L, RDW 13.9, Plt Count 190, MPV 8.5, Neut % (Auto) 85.3 H, Lymph % (Auto) 9.6 L, Hettinger % (Auto) 4.1, Eos % (Auto) 0.6, Baso % (Auto) 0.4, Neut # (Auto) 15.2 H, Lymph # (Auto) 1.7, Hettinger # (Auto) 0.7, Eos # (Auto) 0.1, Baso # (Auto) 0.1, Total Counted 100, Neutrophils % (Manual) 94 H, Lymphocytes % (Manual) 5 L, Monocytes % (Manual) 1 L, Platelet Estimate Normal, Macrocytosis 1+, Sodium 138, Potassium 4.4, Chloride 105, Carbon Dioxide 29, Anion Gap 8.4, BUN 20, Creatinine 1.30 H, Estimated Creat Clear 52, Estimated GFR 54 L, Est GFR ( Amer) 65, Glucose 104 H, Lactate 2.0, Calcium 9.2, Total Bilirubin 0.4, AST 38, ALT 29, Alkaline Phosphatase 58, Troponin I < 0.01 09/27/23 13:08: Troponin I < 0.01, NT-Pro-B Natriuret Pep 620 H, Total Protein 6.5, Albumin 3.7, Globulin 2.8, Albumin/Globulin Ratio 1.3, TSH 1.73, Free T4 1.06 09/27/23 13:28: VBG pH 7.27 L, VBG pCO2 55.9 H, VBG pO2 26.8 L, VBG HCO3 25.3, VBG Total CO2 27.0, VBG O2 Saturation 45.3 L, VBG Base Excess -1.6, VBG Lactic Acid 2.3 H Orders (Tests/Meds): ED MEDICATIONS Generic Name Dose Route Start Last Admin Trade Name Freq PRN Reason Stop Dose Admin Diphenhydramine HCl 50 mg 09/28/23 13:00 Diphenhydramine 50mg/Ml Vial IV 09/28/23 13:01 ONCE ONE Sodium Chloride 1,000 mls @ 125 mls/hr 09/27/23 14:00 09/27/23 13:55 Sod Chlor 0.9% 1000ml Bag IV 10/27/23 13:59 125 mls/hr .Q8H JOHNY Administration Miscellaneous 1 each 09/27/23 14:00 09/27/23 14:01 Vancomycin Consult Request NOTAPPLIC 10/27/23 13:59 1 each CONSULT PHARMACY JOHNY Administration Discontinued Medications Generic Name Dose Route Start Last Admin Trade Name Freq PRN Reason Stop Dose Admin Cefepime HCl 2 gm/ Sodium 100 mls @ 200 mls/hr 09/27/23 13:50 09/27/23 14:16 Chloride IV 09/27/23 14:19 200 mls/hr ONCE ONE Administration Vancomycin/PEG/NADA/Lysine/Water 1.25 gm in 250 mls @ 125 mls/hr 09/27/23 14:00 09/27/23 14:23 Vancomycin 1.25gm/250ml (Peg) Premix IV 09/27/23 15:59 125 mls/hr ONCE ONE Administration ORDERS Category Date Time Status CT head/brain wo con Stat Cat Scan 09/27/23 13:31 Completed CXR --portable [XR chest portable] Stat Exams 09/27/23 13:23 Completed Basic Metabolic Panel AMLAB Lab 09/28/23 06:00 Ordered CBC w/Auto Diff [Complete Blood Count Auto Diff] Stat Lab 09/27/23 13:08 Completed CMP [Comprehensive Metabolic Panel] Stat Lab 09/27/23 13:08 Completed Complete Blood Count Auto Diff AMLAB Lab 09/28/23 06:00 Ordered Free T4 (Free Thyroxine) Stat Lab 09/27/23 13:08 Completed Lactic Acid Stat Lab 09/27/23 13:08 Completed Lipid Panel AMLAB Lab 09/28/23 06:00 Ordered Liver Panel AMLAB Lab 09/28/23 06:00 Ordered NT Pro Brain Natriuretic Pep. Stat Lab 09/27/23 13:08 Completed TSH [Thyroid Stimulating Hormone] Stat Lab 09/27/23 13:08 Completed Trop I [Troponin I] Stat Lab 09/27/23 13:08 Completed Troponin I Q3H Lab 09/27/23 13:08 Completed Troponin I Q3H Lab 09/27/23 19:30 Ordered UA [Urinalysis and Microscopic] Stat Lab 09/27/23 15:06 Ordered Blood Culture Stat Micro 09/27/23 13:36 Received Venous Blood Gas Stat RT 09/27/23 13:28 Completed CA echo doppler complete Stat Y 09/27/23 15:26 Completed Medical Decision Narrative: 77-year-old male history of hypertension, hyperlipidemia, CAD status post 5 vessel CABG and stenting, presenting with weakness, shortness of breath, multiple complaints. Patient states that just prior to arrival, he was [place] that he was itching on his scalp, face, hands, feet, that he developed a red rash. [place] lightheaded, weak, short of breath. Had a couple episodes of vomiting. No syncope. Was brought here for further evaluation by EMS. Family states that patient seems delayed, not confused, just tired. Patient not currently having any symptoms at this time. History obtained with patient, family, EMS. On arrival, patient hemodynamically stable, alert, oriented, appropriate. He has bradycardia cardiac 50 bpm, normotensive. Hypothermic 95 degrees rectally. NIHSS 0. Cardiac exam within normal limits, no lower extremity edema. Patient nondiaphoretic, nonerythematous, in no acute distress. Answering questions appropriately. Lungs are clear to auscultation bilaterally without wheezes, crackles, rales. Abdomen is soft, nontender, nondistended. Patient not actively retching. Pupils are 2 mm and reactive bilaterally, overall unremarkable physical exam. Differential includes ACS, IN, pneumothorax, CAD, toxidrome, medication side effect, pneumonia, sepsis, UTI, among others. Independent interpretation of workup he is bradycardic Independent interpretation of workup demonstrates leukocytosis 18,000 with neutrophilia. VBG with pH 7.27, CO2 mildly elevated at 55, bicarb within normal limits. Lactate mildly elevated 2.3. Chemistry nonactionable, kidney function appears stable. LFTs normal, initial troponin negative, BNP 620. Chest x-ray without acute concern for cardiopulmonary airspace disease. No evidence of pulmonary edema. CT head without acute intracranial abnormality. Family updated on reevaluation, patient appears stable. He was given empiric vancomycin and cefepime. Prior to delta troponin and disposition, care handed off to oncoming physician. Raad Martinez: Upon assumption of care patient was hemodynamically stable. Serial troponins are nonactionable. Case was evaluated by cardiology who recommends heart catheterization in the morning. Case was subsequently discussed with hospital Medicine regarding management who will admit the patient their service for continued evaluation at this time. Critical Care <Lexa Archibald MD - Last Filed: 09/27/23 15:09> Critical Care Time Critical Care Time: No
[2023-09-27 13:48] LABS: NT Pro Brain Natriuretic Pep. 620 pg/mL (0-450)
[2023-09-27 13:50] LABS: Troponin I < 0.01 ng/ml (0.00-0.034)
[2023-09-27] MEDS: 0.9 % SODIUM CHLORIDE 1000ML 1,000 ML 125 ML IV ×2 (13:55→21:46)
[2023-09-27] MEDS: VANCOMYCIN CONSULT REQUEST 1 EACH NOTAPPLIC (14:01)
--- NOTE | 2023-09-27 14:09 | PC.NURSE ---
spoke with princess in pharmacy who is bringing cefepime for pt
[2023-09-27] MEDS: CEFEPIME HCL 2 GM in 0.9 % SODIUM CHLORIDE 100 ML IV (14:16)
[2023-09-27] MEDS: VANCOMYCIN/WATER FOR INJ (PEG) 1.25 GM/250 ML PIGGYBACK IV (14:23)
[2023-09-27 14:53] LABS: Lymphocytes % 5 % (10-50); Monocytes % 1 % (2-9); Neutrophils % 94 % (42-76); Total Cells Counted 100
[2023-09-27 14:54] LABS: Macrocytosis 1+; Platelet Estimate Normal
--- NOTE | 2023-09-27 15:14 | PC.NURSE ---
Flor Cole called to see pt in the ER
--- NOTE | 2023-09-27 15:26 | CA_ITS ---
APPROVED REPORT EXAM: Comprehensive 2D, Doppler, and color-flow Echocardiogram Manager Compliance: MONTY Augustin, RVS Ht: 5 ft 7 in Wt: 166lbs BSA: 1.87 BP: 117/57 mmHg Indications: Weakness, CAd h/o CABG, Stents, HTN, HLD 2D Dimensions Left Atrium 3.89 cm M: 3.0 - 4.0 LA Volume 91.60 mL LA Volume Index 48.98 mL/m2 (M/F) 16-34 M-Mode Dimensions RVDd 1.84 cm (0.9-2.6) LA Diam 3.86 cm (1.9-4.0) LVDd 5.02 cm (3.5-5.7) LVDs 3.72 cm (3.5-5.7) IVSd 1.11 cm (0.6-1.1) PWd 1.04 cm (0.6-1.1) EF (Teich) 50.60% EPSs 0.67 cm FS 25.90% EDV (Teich) 119.30 mL TAPSE 2.04 (<1.7) ESV (Teich) 58.90 mL LV Diastology E Decel Time 183 (160-240 msec) E/A Ratio 2.31 MED A' 11.60 cm/s LAT A' 12.30 cm/s Aortic Valve BREONNA Index 0.93 cm2/m2 AoV Peak Dre. 134.0 (50-130 cm/s) AO Peak GR. 7.20 mmHg AO Mean GR. 3.50 (<5 mmHg) AO VTI 33.4 (18-25 cm) BREONNA (VTI) 1.77 (2.5-4.5 cm2) Mitral Valve MV A Velocity 37.0 (40-130 cm/s) E/A Ratio 2.31 Pulmonary Valve PV Peak Velocity 78.0 (50-150 cm/s) NV End VMAX 183.0 cm/s Tricuspid Valve TR P. Velocity 216.00 cm/s RAP Estimate 10.00 mmHg RVSP 28.60 mmHg Left Ventricle The left ventricle is normal size. The left ventricular systolic function is normal. The left ventricular ejection fraction is within the normal range. Proximal septal thickening is noted. There is normal LV segmental wall motion. The left ventricular diastolic function is normal. LVEF is 55%. Right Ventricle The right ventricle is mildly dilated. The right ventricular systolic function is normal. Atria The left atrium is mildly dilated. The right atrium is mildly dilated. There is no Doppler evidence of interatrial shunt. Aortic Valve The aortic valve is mildly thickened. There is no aortic valvular stenosis. Trace aortic regurgitation is present. Mitral Valve The mitral valve is normal in structure. No evidence of mitral valve stenosis. There is no mitral valve regurgitation noted. Tricuspid Valve The tricuspid valve leaflets are thin and pliable. Trace tricuspid regurgitation. There is insufficient TR jet to estimate RVSP. Pulmonic Valve The pulmonary valve is normal in structure. Mild pulmonic regurgitation. Great Vessels The aortic root is normal in size. The ascending aorta is not well-visualized. IVC is normal in size and collapses >50% with inspiration. Pericardium There is no pericardial effusion. Other Information Study Quality: Fair Conclusion Normal biventricular systolic function. Mild RV dilation. Mild biatrial dilation. Mild PI. Electronically signed by : Shannan Ricardo MD 09/30/2023 01:50:54
--- NOTE | 2023-09-27 15:50 | EXP.CARD.CON ---
History of Present Illness History of Present Illness Consult date: 09/27/23 Requesting physician: Lexa Archibald Consult reason: shortness of breath Chief complaint: SOB, weakness History of present illness: This is a 77-year-old white gentleman who presented to the emergency department with complaints of shortness of breath, weakness and itching. The patient states that he was driving to town when he got to a gas station and had sudden onset of shortness of breath. The patient reports that he just got extremely fatigued and weak and did not feel right. He states that he broke out into a sweat and got very nauseated and started vomiting. He also broke out into a rash. The patient states that after getting gas he immediately came home. His family reported that the patient was very sluggish and kind of not acting like himself. He states that he was unable to walk when he got home because of the profound weakness and shortness of breath. He then had his family call EMS. He was given Benadryl and lactated Ringer's and routes by EMS. He denied any chest pain or pressure. He denied any lower extremity edema. He denied any fever, chills, diarrhea, PND or orthopnea. At this time the patient's symptoms have improved. He states the shortness of breath has resolved and his fatigue has improved. He denies any chest pain or pressure. The patient does have a history of coronary artery disease. He reports that he had coronary stenting back in 2000. Then he had a 5 vessel CABG approximately 13 years ago. Since his CABG the patient has not been evaluated by a record filing clerk since that time. He does report that when he had his previous MIs and needed coronary artery bypass grafting he did not have chest pain, his angina symptoms were shortness of breath. Of note upon arrival to the emergency department he was bradycardic with a heart rate in the 50s, his systolic blood pressure was in the 100s and his temperature was 95 ?F. [facility] Disclaimer: The information contained in this section may have been updated after the patient was seen, as this information can be updated by other users. Medical History (Updated 09/27/23 @ 15:54 by Flor Cole APRN) Abnormal electrocardiogram [ECG] [EKG] CAD in [place] artery Unstable angina History of [place] (myocardial infarction) HLD (hyperlipidemia) HTN (hypertension) Surgical History (Updated 09/27/23 @ 15:53 by Flor Cole APRN) S/P CABG x 5 History of coronary artery bypass graft History of intravascular stent placement Family History Father Cancer prostate Social History Smoking Status: Never smoker alcohol intake: never substance use type: denies use current occupational status: retired Travel in the last 8 weeks: None household members: spouse housing: house lives independently: Yes marital status: Exam Data for Last 24 hours Vital signs and Labs for Last 24 Hours: Temp Pulse Resp BP Pulse Ox O2 Del Method 97.7 F 56 L 19 131/66 98 Room Air 09/27/23 14:30 09/27/23 15:31 09/27/23 15:01 09/27/23 15:31 09/27/23 15:31 09/27/23 15:31 Laboratory Results - last 24 hr 09/27/23 13:08: WBC 17.8 H, RBC 4.36 L, Hgb 14.1, Hct 45.1, MCV 103.5 H, MCH 32.5 H, MCHC 31.4 L, RDW 13.9, Plt Count 190, MPV 8.5, Neut % (Auto) 85.3 H, Lymph % (Auto) 9.6 L, [place] % (Auto) 4.1, Eos % (Auto) 0.6, Baso % (Auto) 0.4, Neut # (Auto) 15.2 H, Lymph # (Auto) 1.7, [place] # (Auto) 0.7, Eos # (Auto) 0.1, Baso # (Auto) 0.1, Total Counted 100, Neutrophils % (Manual) 94 H, Lymphocytes % (Manual) 5 L, Monocytes % (Manual) 1 L, Platelet Estimate Normal, Macrocytosis 1+, Sodium 138, Potassium 4.4, Chloride 105, Carbon Dioxide 29, Anion Gap 8.4, BUN 20, Creatinine 1.30 H, Estimated Creat Clear 52, Estimated GFR 54 L, Est GFR ( Amer) 65, Glucose 104 H, Lactate 2.0, Calcium 9.2, Total Bilirubin 0.4, AST 38, ALT 29, Alkaline Phosphatase 58, Troponin I < 0.01, NT-Pro-B Natriuret Pep 620 H, Total Protein 6.5, Albumin 3.7, Globulin 2.8, Albumin/Globulin Ratio 1.3 09/27/23 13:28: VBG pH 7.27 L, VBG pCO2 55.9 H, VBG pO2 26.8 L, VBG HCO3 25.3, VBG Total CO2 27.0, VBG O2 Saturation 45.3 L, VBG Base Excess -1.6, VBG Lactic Acid 2.3 H I & O for Last 24 hours: Intake & Output 09/24/23 09/25/23 09/26/23 09/27/23 23:59 23:59 23:59 23:59 Weight 166 lb Narrative: EKG shows sinus bradycardia with a rate of 53 bpm, left axis deviation and right bundle branch block. Constitutional Constitutional: no acute distress and average body habitus *Routine HEENT Exam Head: Present normocephalic and atraumatic ENT: Present mucous membranes moist *Routine Neck Exam Neck: Present supple, full ROM and normal carotid upstroke; Absent JVD, carotid bruit or lymphadenopathy *Routine Respiratory Exam Respiratory: Present CTA bilaterally, normal respiratory effort, able to speak in complete sentences and symmetric chest movement *Routine Cardiovascular Exam Cardiovascular: Present RRR, Normal S1 and Normal S2; Absent murmur or gallop *Routine Abdominal Exam Abdominal: Present soft and normoactive bowel sounds; Absent tenderness, distended or organomegaly *Routine Extremities Exam Extremities: Present full ROM, pulses intact and normal capillary refill; Absent cyanosis, clubbing or edema *Routine Skin Exam Skin: Present intact and warm; Absent erythema *Routine Neurological Exam Neurological: Present alert, oriented X3 and CN II-XII intact; Absent sensory deficit or motor deficit Routine Psychiatric Exam Psychiatric: Present normal affect Meds Home Medications and Allergies Home Medications Medication Instructions Recorded Confirmed Type losartan 50 mg tablet 50 mg PO DAILY 08/02/23 08/08/23 History metoprolol tartrate 25 mg tablet 12.5 mg PO DAILY 08/02/23 08/08/23 History rosuvastatin 40 mg tablet 20 mg PO DAILY 08/02/23 08/08/23 History sertraline 50 mg tablet 50 mg PO DAILY 08/02/23 08/09/23 History omeprazole 20 mg capsule,delayed 20 mg PO BID 14 days #28 caps 08/15/23 Rx release budesonide 3 mg 3 mg PO BID Lymphocytic colitis 09/07/23 09/07/23 Rx capsule,delayed,extended release #60 ea New Prescriptions to Start Prescriptions: Allergies Allergy/AdvReac Type Severity Reaction Status Date / Time amoxicillin Allergy Intermediate Rash Verified 09/07/23 15:23 Assessment and Plan *Assessment and plan (1) Unstable angina: Status: Acute Category: Medical Code(s): I20.0 - Unstable angina (2) CAD in [place] artery: Status: Acute Category: Medical Code(s): I25.10 - Atherosclerotic heart disease of [place] coronary artery without angina pectoris (3) HLD (hyperlipidemia): Status: Acute Qualifiers: Hyperlipidemia type: mixed hyperlipidemia Qualified Code(s): E78.2 - Mixed hyperlipidemia Category: Medical Code(s): E78.5 - Hyperlipidemia, unspecified (4) HTN (hypertension): Status: Acute Qualifiers: Hypertension type: primary hypertension Qualified Code(s): I10 - Essential (primary) hypertension Category: Medical Code(s): I10 - Essential (primary) hypertension (5) S/P CABG x 5: Status: Acute Category: Surgical Code(s): Z95.1 - Presence of aortocoronary bypass graft (6) Abnormal electrocardiogram [ECG] [EKG]: Status: Acute Category: Medical Code(s): R94.31 - Abnormal electrocardiogram [ECG] [EKG] Plan Plan: 1. Patient presented to the hospital with shortness of breath, weakness and itching. The patient had an initial negative troponin. The patient does have a history of coronary artery disease and is status post 5 vessel coronary artery bypass grafting. He has not had an evaluation by record filing clerk since his bypass approximately 13 years ago. The patient does have a high pretest likelihood for worsening coronary artery disease. He is high risk. Will plan to proceed with left cardiac catheterization tomorrow with right groin access to evaluate his coronary artery disease due to his unstable angina. 2. The patient has been educated the risk and benefits of proceeding with left cardiac catheterization. The patient verbalized understanding and is agreeable in proceeding with the procedure. 3. The patient will be n.p.o. after breakfast in the morning in preparation for left cardiac catheterization. 4. Coronary artery disease is present. We do recommend aspirin 81 mg daily. 5. His blood pressure is well-controlled at this time. Continue losartan and metoprolol. 6. His LDL goal is less than 55. Will get a lipid panel in the morning. He is on a statin. 7. Will obtain an echocardiogram to evaluate his LV function due to his shortness of breath and weakness and fatigue. 8. Further recommendations will be made pending the patient's response to treatment and the results of his echocardiogram and left cardiac catheterization tomorrow. Thank you for the opportunity to help participate in the care of this patient. All recommendations and orders are per Dr. Ricardo.
[2023-09-27 16:01] LABS: Troponin I < 0.01 ng/ml (0.00-0.034)
[2023-09-27 16:03] LABS: Free T4 (Free Thyroxine) 1.06 ng/dl (0.78-2.19)
[2023-09-27 16:17] LABS: Thyroid Stimulating Hormone 1.73 uIU/mL (0.465-4.68)
--- NOTE | 2023-09-27 16:21 | PC.NURSE ---
Dr. Juan Hawkins has agreed to accept pt. unit supervisor notified of bed assignment.
--- NOTE | 2023-09-27 16:28 | EXP.HP ---
History of Present Illness *Admission Date: 09/27/23 *Reason for visit:: weakness, dizziness *History of present illness: Mr. Lopez a 77-year-old male with history of hypertension, CAD, hyperlipidemia, 5 vessel CABG 13 years ago. He presented to the ER because of weakness and shortness of breath. States that it began an hour or so after taking his morning medications. He was playing with his great granddaughter and became more weak and fatigued afterward. States that after playing with her he went to get gas and while getting gas did not feel like himself. Was tingly in his hands and his feet. [place] short of breath and very weak. Given his lightheadedness and weakness, EMS was contacted. He denies any tim chest pain, vomiting, diarrhea, syncope, loss of consciousness. Was given IV fluids by EMS during transport. Noted to be hypotensive. On arrival, vitals concerning for mild hypothermia, bradycardia, hypotension. Noted to have leukocytosis on labs. Chest imaging relatively unremarkable. Given hypotension and bradycardia, medicine was consulted for admission and serial troponins and further workup. After arriving to the floor, patient has received 2 L of IV fluids. Was treated empirically with cefepime and vancomycin because of his leukocytosis and hypotension. Blood pressure is normalized. He is alert and oriented x 4. Family at bedside. Body temperature is normalized. Discussion about his medications seems to present some confusion. Family thought he had finished his steroids (budesonide) for his lymphocytic colitis, he states he still had a day or 2 and was taking them at this time. Is also concerned about his morning blood pressure meds possibly being a culprit in his symptoms. He overall feels better at this time. Family states he is at baseline mentation. In no acute distress on room air. [facility] Disclaimer: The information contained in this section may have been updated after the patient was seen, as this information can be updated by other users. Medical History Abnormal electrocardiogram [ECG] [EKG] CAD in [place] artery Unstable angina History of [place] (myocardial infarction) HLD (hyperlipidemia) HTN (hypertension) Surgical History S/P CABG x 5 History of coronary artery bypass graft History of intravascular stent placement Family History Father Cancer Social History Smoking Status: Never smoker alcohol intake: never substance use type: denies use current occupational status: retired Travel in the last 8 weeks: None household members: spouse housing: house lives independently: Yes marital status: Review of Systems Review of Systems Review of systems (narrative): 14 point review of systems performed, pertinent positives and negatives as per [facility] Meds Home Medications and Allergies Home Medications Medication Instructions Recorded Confirmed Type losartan 50 mg tablet 50 mg PO DAILY 08/02/23 09/27/23 History metoprolol tartrate 25 mg tablet 12.5 mg PO BID 08/02/23 09/27/23 History rosuvastatin 40 mg tablet 20 mg PO HS 08/02/23 09/27/23 History sertraline 50 mg tablet 25 mg PO DAILY 08/02/23 09/27/23 History New Prescriptions to Start Prescriptions: Allergies Allergy/AdvReac Type Severity Reaction Status Date / Time amoxicillin Allergy Intermediate Rash Verified 09/07/23 15:23 Exam Data for Last 24 hours Vital signs and Labs for Last 24 Hours: Temp Pulse Resp BP Pulse Ox O2 Del Method 97.7 F 52 L 20 112/56 L 97 Room Air 09/27/23 14:30 09/27/23 16:00 09/27/23 16:00 09/27/23 16:00 09/27/23 16:00 09/27/23 16:00 Laboratory Results - last 24 hr 09/27/23 13:08: WBC 17.8 H, RBC 4.36 L, Hgb 14.1, Hct 45.1, MCV 103.5 H, MCH 32.5 H, MCHC 31.4 L, RDW 13.9, Plt Count 190, MPV 8.5, Neut % (Auto) 85.3 H, Lymph % (Auto) 9.6 L, [place] % (Auto) 4.1, Eos % (Auto) 0.6, Baso % (Auto) 0.4, Neut # (Auto) 15.2 H, Lymph # (Auto) 1.7, [place] # (Auto) 0.7, Eos # (Auto) 0.1, Baso # (Auto) 0.1, Total Counted 100, Neutrophils % (Manual) 94 H, Lymphocytes % (Manual) 5 L, Monocytes % (Manual) 1 L, Platelet Estimate Normal, Macrocytosis 1+, Sodium 138, Potassium 4.4, Chloride 105, Carbon Dioxide 29, Anion Gap 8.4, BUN 20, Creatinine 1.30 H, Estimated Creat Clear 52, Estimated GFR 54 L, Est GFR ( Amer) 65, Glucose 104 H, Lactate 2.0, Calcium 9.2, Total Bilirubin 0.4, AST 38, ALT 29, Alkaline Phosphatase 58, Troponin I < 0.01 09/27/23 13:08: Troponin I < 0.01, NT-Pro-B Natriuret Pep 620 H, Total Protein 6.5, Albumin 3.7, Globulin 2.8, Albumin/Globulin Ratio 1.3, TSH 1.73, Free T4 1.06 09/27/23 13:28: VBG pH 7.27 L, VBG pCO2 55.9 H, VBG pO2 26.8 L, VBG HCO3 25.3, VBG Total CO2 27.0, VBG O2 Saturation 45.3 L, VBG Base Excess -1.6, VBG Lactic Acid 2.3 H I & O for Last 24 hours: Intake & Output 09/24/23 09/25/23 09/26/23 09/27/23 23:59 23:59 23:59 23:59 Weight 75.296 kg Constitutional Constitutional: no acute distress and average body habitus *Routine HEENT Exam Head: Present normocephalic Eye: Present EOMI and PERRL ENT: Present mucous membranes moist *Routine Neck Exam Neck: Present supple; Absent lymphadenopathy Routine Chest/Breast/Axilla Exam Comments: Well-healed midline scar *Routine Respiratory Exam Respiratory: Present CTA bilaterally; Absent rhonchi, wheezes or crackles *Routine Cardiovascular Exam Cardiovascular: Present RRR *Routine Abdominal Exam Abdominal: Present soft and normoactive bowel sounds; Absent tenderness *Routine Rectal Exam Rectal:: deferred *Routine Genitalia Exam Genitalia:: deferred *Routine Extremities Exam Extremities: Absent cyanosis, clubbing or edema *Routine Skin Exam Skin: Present warm; Absent rash *Routine Neurological Exam Neurological: Present alert, oriented X3 and moving all extremities; Absent altered mental status Assessment and Plan *Assessment and plan (1) Weakness: Status: Acute Category: Medical Code(s): R53.1 - Weakness (2) Hypotension: Status: Acute Category: Medical Code(s): I95.9 - Hypotension, unspecified (3) Bradycardia: Status: Acute Category: Medical Code(s): R00.1 - Bradycardia, unspecified (4) S/P CABG x 5: Status: Acute Category: Surgical Code(s): Z95.1 - Presence of aortocoronary bypass graft (5) CAD in [place] artery: Status: Acute Category: Medical Code(s): I25.10 - Atherosclerotic heart disease of [place] coronary artery without angina pectoris (6) Lymphocytic colitis: Status: Acute Category: Medical Code(s): K52.832 - Lymphocytic colitis (7) HTN (hypertension): Status: Acute Qualifiers: Hypertension type: primary hypertension Qualified Code(s): I10 - Essential (primary) hypertension Category: Medical Code(s): I10 - Essential (primary) hypertension (8) HLD (hyperlipidemia): Status: Acute Qualifiers: Hyperlipidemia type: mixed hyperlipidemia Qualified Code(s): E78.2 - Mixed hyperlipidemia Category: Medical Code(s): E78.5 - Hyperlipidemia, unspecified Plan 77-year-old male with extensive cardiac history who presented to the ER with hypotension, low body temperature, leukocytosis. After receiving IV fluids, patient has had improvement in his blood pressure. Discussed case with ER physician, request admission for further cardiac workup and continued antibiotics given his tim abnormalities that are nonspecific on presentation. Medicine agreed to admit. Cardiology was consulted, evaluated patient in the ER. At this time patient is hemodynamically stable and on room air. Problems addressed as follows: Hypotension History of CAD status post CABG x 5 Hyperlipidemia -Reports he took his normal medications this morning including metoprolol and losartan. Unclear as exact dose that he took and if it is what he is prescribed. Responded well to fluids. Will hold his metoprolol at this time given bradycardia. Decrease losartan to half dose (formulary conversion 37.5 mg irbesartan daily) -Cardiology consulted, recommend serial troponins overnight monitoring on telemetry. Will discuss potential heart cath for further workup in the morning given extensive cardiac history and presentation concerning for anginal equivalents with shortness of breath, hypotension, weakness. -Continue Crestor 20 mg nightly. Lipid panel pending for the morning -81 mg aspirin daily for CAD -Echocardiogram ordered for the morning. Will evaluate LV function. - TSH normal at 1.7, no hypothyroid; glucose normal on labs, low suspicion for diabetes Mood disorder: Continue Zoloft 25 mg daily per home regimen. Does not meet presentation for serotonin syndrome as he was hypothermic not hyperthermic, weak not hyperreflexive CKD 3 - Creatinine 1.3 on initial labs. Peers to be at baseline. Repeat labs ordered for the morning with CBC, CMP, magnesium Leukocytosis: - Unclear etiology. Patient has history of lymphocytic colitis, on budesonide. May be secondary to steroid effect or stress to marginalization. Will continue empiric antibiotics with vancomycin and ceftriaxone daily. Blood cultures obtained, urinalysis unremarkable with normal UA. If cultures negative at 48 hours, will discontinue antibiotics. -Chest imaging personally reviewed, unremarkable, no focal airspace disease. Full code Heparin subcu twice daily Cardiac diet, n.p.o. at midnight
--- NOTE | 2023-09-27 16:46 | PC.NURSE ---
pt taken off [facility].
--- NOTE | 2023-09-27 16:46 | PC.NURSE ---
report called to Sade MARIE
--- NOTE | 2023-09-27 16:55 | PC.NURSE ---
arrived by stretcher from ED
[2023-09-27 17:41] LABS: Reflex Lactic Add Lactic Reflex
--- NOTE | 2023-09-27 18:05 | PC.NURSE ---
HOLD ALL BP MEDS OVER NIGHT PER BRAXTON
[2023-09-27 18:22] LABS: Appearance,Urine CLEAR (Clear); Bilirubin,Urine Negative (Negative); Blood, Urine Negative (Negative); Color,Urine YELLOW (Yellow); Glucose,Urine (UA) Negative (Negative); Ketones,Urine Negative (Negative); Leukocyte Esterase,Urine Negative (Negative); Microscopic, Urine URINE MICROSCOPIC (MICROSCOPIC); Nitrate,Urine Negative (Negative); Protein,Urine Negative (Negative); Specific Gravity, Urine 1.015 (1.005-1.030); Urobilinogen,Urine 0.2 EU/dl (0.2)
[2023-09-27 18:33] LABS: Squamous Epithelial Cell,Urine Occasional #/hpf (0-5)
[2023-09-27 19:55] LABS: Lactic Acid Follow Up (RFLX 1) 1.4 mmol/L (0.7-2.1)
[2023-09-27 20:08] LABS: Troponin I < 0.01 ng/ml (0.00-0.034)
[2023-09-28] VITALS (17 sets, daily range): BP systolic 127–164; BP diastolic 61–82; PULSE 49–61; RESP 16–20; TEMP 36.4–37; O2SAT 96–100; BMI 27.7
[2023-09-28] MEDS: CEFTRIAXONE SODIUM 1 GM in 0.9 % SODIUM CHLORIDE 50 ML IV ×2 (00:12→20:52)
--- NOTE | 2023-09-28 04:21 | PC.NURSE ---
Pt is alert and oriented x4 and is tolerating RA well. Pt remains on tele and rangews from dorys sinus to NSR. Pt has rested well and tolerated antibiotic therapy and fluids well. Pt has an order for a cardiac consult and could possibly have a heart cath, pt understands this and is NPO at this time. Pt denies pain and needs, Pt at bedside.
[2023-09-28 06:30] LABS: Chloride 112 mmol/L (98-107); Sodium 138 mmol/L (136-145)
[2023-09-28 06:31] LABS: Potassium 4.7 mmoL/L (3.5-5.1)
[2023-09-28 06:33] LABS: Alanine Aminotransferase 22 U/L (12-78); Albumin Level 3.1 g/dl (3.5-5.0); Alkaline Phosphatase 59 U/L (38-126); Anion Gap 1.7 mEq/L (5-15); Aspartate Amino Transferase 29 U/L (17-59); Bilirubin,Direct 0.2 mg/dl (0.0-0.4); Bilirubin,Indirect 0.2 mg/dL (0.0-0.9); Bilirubin,Total 0.4 mg/dl (0.2-1.3); Bilirubin,Unconjugated 0.3 mg/dL (0.0-1.1); Blood Urea Nitrogen 17 mg/dl (9-20); Calcium 8.8 mg/dl (8.4-10.2); Carbon Dioxide 29 mmol/L (22.0-30.0); Chol/HDL Ratio 2.8 (1-3.5); Cholesterol 107 mg/dl (140-200); Creatinine Clearance Estimated 56 mL/min (50-200); Estimated Glomerular Filt Rate 54 ml/min (>60); GFR (African American) 65 ML/MIN (>60); Glucose 96 mg/dl (74-100); HDL Cholesterol 38 mg/dl (40-60); Total Protein,Serum 5.5 g/dl (6.3-8.2); Triglycerides 57 mg/dl (30-150); VLDL Cholesterol 11 mg/dL (0-40)
[2023-09-28 06:34] LABS: Basophils # 0.1 K/mm3 (0-0.2); Eosinophils # 0.2 K/mm3 (0.0-0.4); Neutrophils # 4.7 K/mm3 (1.8-7.8); White Blood Count 7.6 K/mm3 (4.8-10.8)
[2023-09-28 06:41] LABS: Basophils % 0.6 % (0.1-2.0); Eosinophils % 2.9 % (0.1-12.0); Hematocrit 36.9 % (42.0-52.0); Lymphocytes # 2.2 K/mm3 (0.7-4.5); Lymphocytes % 28.7 % (10-50); Mean Corpuscular HGB Conc 30.7 g/dL (31.8-35.4); Mean Corpuscular Hemoglobin 32.2 pg (27.0-31.2); Mean Platelet Volume 9.1 fl (7.4-10.4); Monocytes # 0.5 K/mm3 (0.1-1.0); Monocytes % 6.2 % (1.7-9.3); Neutrophils % 61.6 % (37.0-80.0); Platelet Count 147 K/mm3 (142-424); Red Blood Count 3.52 M/mm3 (4.60-6.20); Red Cell Distribution Width 14.2 % (11.5-17.5)
[2023-09-28 06:42] LABS: Hemoglobin 11.3 g/dL (14.1-18.0)
[2023-09-28] MEDS: 0.9 % SODIUM CHLORIDE 1000ML 1,000 ML 125 ML IV ×2 (06:54→20:52)
[2023-09-28 07:03] LABS: Magnesium 1.9 mg/dl (1.6-2.3)
--- NOTE | 2023-09-28 08:07 | P.CONPHA_ITS ---
Pharmacy Intervention Comments: HOME MEDICATION LIST VERIFIED VIA [facility]
--- NOTE | 2023-09-28 08:07 | HMH.PHAINT1 ---
Pharmacy Intervention Comments: HOME MEDICATION LIST VERIFIED VIA [facility]
[2023-09-28] MEDS: SERTRALINE 50MG TABLET 25 MG PO (08:10)
[2023-09-28] MEDS: IRBESARTAN 75MG TABLET 37.5 MG PO (08:10)
--- NOTE | 2023-09-28 08:40 | EXP.PHA.CONS ---
Pharmacy Consult Date: 09/28/23 Time: 08:40 Referring provider: DR LIMON Reason for Consult:: VANCOMYCIN DOSING CONSULT Allergies Allergy/AdvReac Type Severity Reaction Status Date / Time amoxicillin Allergy Intermediate Rash Verified 09/07/23 15:23 Home Medications Medication Instructions Recorded Confirmed Type losartan 50 mg tablet 50 mg PO DAILY 08/02/23 09/27/23 History metoprolol tartrate 25 mg tablet 12.5 mg PO BID 08/02/23 09/27/23 History rosuvastatin 40 mg tablet 20 mg PO HS 08/02/23 09/27/23 History sertraline 50 mg tablet 25 mg PO DAILY 08/02/23 09/27/23 History New Prescriptions to Start Prescriptions: Height: 1.7 m Weight: 80.24 kg Laboratory Results:: Laboratory Results - last 24 hr 09/27/23 13:08: WBC 17.8 H, RBC 4.36 L, Hgb 14.1, Hct 45.1, MCV 103.5 H, MCH 32.5 H, MCHC 31.4 L, RDW 13.9, Plt Count 190, MPV 8.5, Neut % (Auto) 85.3 H, Lymph % (Auto) 9.6 L, [place] % (Auto) 4.1, Eos % (Auto) 0.6, Baso % (Auto) 0.4, Neut # (Auto) 15.2 H, Lymph # (Auto) 1.7, [place] # (Auto) 0.7, Eos # (Auto) 0.1, Baso # (Auto) 0.1, Total Counted 100, Neutrophils % (Manual) 94 H, Lymphocytes % (Manual) 5 L, Monocytes % (Manual) 1 L, Platelet Estimate Normal, Macrocytosis 1+, Sodium 138, Potassium 4.4, Chloride 105, Carbon Dioxide 29, Anion Gap 8.4, BUN 20, Creatinine 1.30 H, Estimated Creat Clear 52, Estimated GFR 54 L, Est GFR ( Amer) 65, Glucose 104 H, Lactate 2.0, Calcium 9.2, Total Bilirubin 0.4, AST 38, ALT 29, Alkaline Phosphatase 58, Troponin I < 0.01 09/27/23 13:08: Troponin I < 0.01, NT-Pro-B Natriuret Pep 620 H, Total Protein 6.5, Albumin 3.7, Globulin 2.8, Albumin/Globulin Ratio 1.3, TSH 1.73, Free T4 1.06 09/27/23 13:28: VBG pH 7.27 L, VBG pCO2 55.9 H, VBG pO2 26.8 L, VBG HCO3 25.3, VBG Total CO2 27.0, VBG O2 Saturation 45.3 L, VBG Base Excess -1.6, VBG Lactic Acid 2.3 H 09/27/23 18:10: Urine Color Yellow, Urine Appearance Clear, Urine pH 6.0, Ur Specific [place] 1.015, Urine Protein Negative, Urine Glucose (UA) Negative, Urine Ketones Negative, Urine Blood Negative, Urine Nitrate Negative, Urine Bilirubin Negative, Urine Urobilinogen 0.2, Ur Leukocyte Esterase Negative, Urine RBC None, Urine WBC None, Ur Squamous Epith Cells Occasional, Urine Bacteria None 09/27/23 19:29: Lactate 1.4, Troponin I < 0.01 09/28/23 05:47: WBC 7.6 D, RBC 3.52 L, Hgb 11.3 L D, Hct 36.9 L, MCV 105.0 H, MCH 32.2 H, MCHC 30.7 L, RDW 14.2, Plt Count 147, MPV 9.1, Neut % (Auto) 61.6, Lymph % (Auto) 28.7, [place] % (Auto) 6.2, Eos % (Auto) 2.9, Baso % (Auto) 0.6, Neut # (Auto) 4.7, Lymph # (Auto) 2.2, [place] # (Auto) 0.5, Eos # (Auto) 0.2, Baso # (Auto) 0.1, Sodium 138, Potassium 4.7, Chloride 112 H, Carbon Dioxide 29, Anion Gap 1.7 L, BUN 17, Creatinine 1.30 H, Estimated Creat Clear 56, Estimated GFR 54 L, Est GFR ( Amer) 65, Glucose 96, Calcium 8.8, Magnesium 1.9, Total Bilirubin 0.4, Direct Bilirubin 0.2, Conjugated Bilirubin 0.0, Indirect Bilirubin 0.2, Unconjugated Bilirubin 0.3, AST 29, ALT 22, Alkaline Phosphatase 59, Total Protein 5.5 L, Albumin 3.1 L D, Triglycerides 57, Cholesterol 107 L, LDL Cholesterol Direct 53.50 L, VLDL Cholesterol 11, HDL Cholesterol 38 L, Cholesterol/HDL Ratio 2.8 Medical History: Medical History (Updated 09/27/23 @ 22:19 by Ryan Limon MD) Abnormal electrocardiogram [ECG] [EKG] CAD in [place] artery Unstable angina History of [place] (myocardial infarction) HLD (hyperlipidemia) HTN (hypertension) Assessment and Plan Assessment and plan all Dx Assessment and Plan for all problems:: Pharmacokinetic dosing service Objective: Age: 77 yo Serum creatinine: 1.3 mg/dL Height: 66.9 Inches Weight (kg): 80.24 Diagnosis: SEPSIS Assessment: IBW (kg): 65.87 Dosing wt(kg): 80.24 Estimated Creatinine clearance (ml/min): 45.7 CRCL method: Cockcroft and Gault using ibw(default). Drug selected: Vancomycin Vd (liters): 56.2 (factor used: 0.7 L/kg) Ignacio (hr-1): 0.042 Half life (hrs): 16.50 CLvanco=?? 2.360 L/hr Recommended dose: 1250 mg Interval: 24 hrs Infusion time (hrs): 2.0 Predicted peak (mcg/mL): 33.6 Predicted trough (mcg/mL): 13.34 Total body weight is being used for vancomycin dosing. Recommendations: Give Vancomycin 1250 mg q 24 hrs with an expected Cpeak of 33.6 mcg/ml and an expected Ctrough of 13.34 mcg/ml AUC 0-24 /BELKIS Data: BELKIS 0.5 mcg/mL:?? AUC/BELKIS:? 1059.3 BELKIS 1.0 mcg/mL:?? AUC/BELKIS:? 529.7 --------- BELKIS 1.5 mcg/mL:?? AUC/BELKIS:? 353.1 BELKIS 2.0 mcg/mL:?? AUC/BELKIS:? 264.8 Thank you for the consult
[2023-09-28] MEDS: ASPIRIN EC 81MG TABLET 81 MG PO (09:09)
--- NOTE | 2023-09-28 11:00 | P.PN_ITS ---
Subjective Subjective Date: 09/28/23 Time: 09:00 Principal diagnosis: unstable angina, CAD Interval history: This is a 77-year-old gentleman who presented to the emergency department complaints of shortness of breath, weakness and itching. The patient had a sudden onset of shortness of breath yesterday and got extremely fatigued and weak where he was unable to walk. He was diaphoretic as well and is having nausea and vomiting. The patient states that the symptoms were similar to the symptoms that he had with his previous SC and coronary artery bypass grafting. The patient has not been evaluated by cardiology in 13 years since his coronary artery bypass grafting. The patient states that he is feeling better this morning. Given his high pretest likelihood for coronary artery due to disease progression the patient is scheduled to undergo a left cardiac catheterization today for further evaluation of his coronary artery disease. His blood pressure medications were held overnight and his blood pressure and heart rate have both improved today. He currently denies any chest pain or pressure. He denies any fever, chills, nausea, vomiting, diarrhea, PND or orthopnea. Exam Data for Last 24 hours Vital signs and Labs for Last 24 Hours: Temp Pulse Resp BP Pulse Ox O2 Del Method 97.6 F 61 16 146/61 H 99 Room Air 09/28/23 08:00 09/28/23 08:00 09/28/23 08:00 09/28/23 08:00 09/28/23 08:00 09/28/23 09:00 Laboratory Results - last 24 hr 09/27/23 13:08: WBC 17.8 H, RBC 4.36 L, Hgb 14.1, Hct 45.1, MCV 103.5 H, MCH 32.5 H, MCHC 31.4 L, RDW 13.9, Plt Count 190, MPV 8.5, Neut % (Auto) 85.3 H, Lymph % (Auto) 9.6 L, [place] % (Auto) 4.1, Eos % (Auto) 0.6, Baso % (Auto) 0.4, Neut # (Auto) 15.2 H, Lymph # (Auto) 1.7, [place] # (Auto) 0.7, Eos # (Auto) 0.1, Baso # (Auto) 0.1, Total Counted 100, Neutrophils % (Manual) 94 H, Lymphocytes % (Manual) 5 L, Monocytes % (Manual) 1 L, Platelet Estimate Normal, Macrocytosis 1+, Sodium 138, Potassium 4.4, Chloride 105, Carbon Dioxide 29, Anion Gap 8.4, BUN 20, Creatinine 1.30 H, Estimated Creat Clear 52, Estimated GFR 54 L, Est GFR ( Amer) 65, Glucose 104 H, Lactate 2.0, Calcium 9.2, Total Bilirubin 0.4, AST 38, ALT 29, Alkaline Phosphatase 58, Troponin I < 0.01 09/27/23 13:08: Troponin I < 0.01, NT-Pro-B Natriuret Pep 620 H, Total Protein 6.5, Albumin 3.7, Globulin 2.8, Albumin/Globulin Ratio 1.3, TSH 1.73, Free T4 1.06 09/27/23 13:28: VBG pH 7.27 L, VBG pCO2 55.9 H, VBG pO2 26.8 L, VBG HCO3 25.3, VBG Total CO2 27.0, VBG O2 Saturation 45.3 L, VBG Base Excess -1.6, VBG Lactic Acid 2.3 H 09/27/23 18:10: Urine Color Yellow, Urine Appearance Clear, Urine pH 6.0, Ur Specific [place] 1.015, Urine Protein Negative, Urine Glucose (UA) Negative, Urine Ketones Negative, Urine Blood Negative, Urine Nitrate Negative, Urine Bilirubin Negative, Urine Urobilinogen 0.2, Ur Leukocyte Esterase Negative, Urine RBC None, Urine WBC None, Ur Squamous Epith Cells Occasional, Urine Bacteria None 09/27/23 19:29: Lactate 1.4, Troponin I < 0.01 09/28/23 05:47: WBC 7.6 D, RBC 3.52 L, Hgb 11.3 L D, Hct 36.9 L, MCV 105.0 H, MCH 32.2 H, MCHC 30.7 L, RDW 14.2, Plt Count 147, MPV 9.1, Neut % (Auto) 61.6, Lymph % (Auto) 28.7, [place] % (Auto) 6.2, Eos % (Auto) 2.9, Baso % (Auto) 0.6, Neut # (Auto) 4.7, Lymph # (Auto) 2.2, [place] # (Auto) 0.5, Eos # (Auto) 0.2, Baso # (Auto) 0.1, Sodium 138, Potassium 4.7, Chloride 112 H, Carbon Dioxide 29, Anion Gap 1.7 L, BUN 17, Creatinine 1.30 H, Estimated Creat Clear 56, Estimated GFR 54 L, Est GFR ( Amer) 65, Glucose 96, Calcium 8.8, Magnesium 1.9, Total Bilirubin 0.4, Direct Bilirubin 0.2, Conjugated Bilirubin 0.0, Indirect Bilirubin 0.2, Unconjugated Bilirubin 0.3, AST 29, ALT 22, Alkaline Phosphatase 59, Total Protein 5.5 L, Albumin 3.1 L D, Triglycerides 57, Cholesterol 107 L, LDL Cholesterol Direct 53.50 L, VLDL Cholesterol 11, HDL Cholesterol 38 L, Cholesterol/HDL Ratio 2.8 I & O for Last 24 hours: Intake & Output 09/25/23 09/26/23 09/27/23 09/28/23 23:59 23:59 23:59 23:59 Intake Total 270 / 510 240 / 240 Output Total 300 / 300 0 / 0 Balance -30 / 210 240 / 240 Weight 166 lb 176 lb 14.4 oz Constitutional Constitutional: no acute distress and average body habitus *Routine HEENT Exam Head: Present normocephalic and atraumatic ENT: Present mucous membranes moist *Routine Neck Exam Neck: Present supple, full ROM and normal carotid upstroke; Absent JVD, carotid bruit or lymphadenopathy *Routine Respiratory Exam Respiratory: Present CTA bilaterally, normal respiratory effort, able to speak in complete sentences and symmetric chest movement *Routine Cardiovascular Exam Cardiovascular: Present RRR, Normal S1 and Normal S2; Absent murmur or gallop *Routine Abdominal Exam Abdominal: Present soft and normoactive bowel sounds; Absent tenderness, distended or organomegaly *Routine Extremities Exam Extremities: Present full ROM, pulses intact and normal capillary refill; Absent cyanosis, clubbing or edema *Routine Skin Exam Skin: Present intact and warm; Absent erythema *Routine Neurological Exam Neurological: Present alert, oriented X3 and CN II-XII intact; Absent sensory deficit or motor deficit Routine Psychiatric Exam Psychiatric: Present normal affect Progress Note: A&P Assessment and plan (1) Unstable angina: Status: Acute (2) CAD in [place] artery: Status: Acute (3) S/P CABG x 5: Status: Acute (4) Abnormal electrocardiogram [ECG] [EKG]: Status: Acute (5) Weakness: Status: Acute (6) Hypotension: Status: Acute (7) Bradycardia: Status: Acute (8) Lymphocytic colitis: Status: Acute (9) HTN (hypertension): Status: Acute (10) HLD (hyperlipidemia): Status: Acute Assessment and Plan Assessment and Plan for All Diagnoses:: Plan: 1. The patient presented to the hospital with symptoms consistent with unstable angina. He did rule out for an SC. But given his high pretest likelihood for coronary artery disease progression and him being high risk for disease progression we will plan to proceed with left cardiac catheterization today to evaluate his coronary artery disease. He is status post 5 vessel CABG. 2. The patient has been educated risk and benefits of proceeding with left cardiac catheterization with right groin access. The patient has verbalized understanding and is agreeable in proceeding with the procedure. 3. The patient will be n.p.o. in preparation for left cardiac catheterization. 4. Coronary artery disease is stable. Aspirin 81 mg daily. 5. His blood pressure is well-controlled today. Will restart losartan at 50 mg daily. 6. Continue to hold metoprolol as his heart rate remains in the 50s this morning. 7. His echocardiogram is currently pending. 8. His LDL goal is less than 55. His LDL is 53. He is on a statin. 9. Further recommendations will be made pending the patient's response to t reatment and the results of his left cardiac catheterization today. Thank you for the opportunity to help participate in the care of this patient. All recommendations and orders are per Dr. Ricardo. Addendum: [facility] shows: The left main artery Has a distal 70 to 80% stenosis The left anterior descending artery Is proximally patent gives rise to a first septal engineer steam and first diagonal artery and then occluded The circumflex artery Proximally occluded The right coronary artery Dominant proximally occluded The [place] ventriculogram reveals Not performed The left ventricular end-diastolic pressure Not measured [place] to LAD widely patent Saphenous to first diagonal artery widely patent Saphenous to large ramus intermedius patent Saphenous to large posterior descending artery patent No other vein graft to be cannulated Right renal artery singular normal Left renal artery singular normal IMPRESSION Excellent surgical revascularization as described above Normal renal arteries PLAN 1. Medical management 2. Risk factor modification Patient has patent coronary artery disease with excellent surgical revascularization. The patient is stable for discharge home today from a cardiac standpoint. Continue to hold his beta-maria isabel at discharge. The patient can follow-up in cardiology clinic in 2 weeks on an outpatient basis.
--- NOTE | 2023-09-28 11:26 | IR_ITS ---
APPROVED REPORT Patient Location: Inpatient Senior Buyer Planner: EMA Lopez RT (R) PROCEDURES Selective coronary angiogram Selective engagement left internal mammary artery to the LAD Selective engagement of the saphenous vein graft to the ramus intermedius Selective engagement of the saphenous vein graft to the posterior descending artery Bilateral selective renal angiography INDICATION Known coronary artery disease, History of coronary bypass surgery, Hypertension, Chronic renal insufficiency creatinine 1.3, Angina pectoris Informed consent was obtained prior to the procedure. COMPLICATIONS None Estimated Blood Loss: Less than10 mls TECHNIQUE One percent lidocaine used to anesthetize the right groin. The right femoral artery was accessed via the Seldinger technique and a 5 [place] sheath was placed in the right femoral artery. A JL 4, JR4 multipurpose catheter and an LCB catheter were used to perform left heart catheterization, left ventriculogram selective coronary angiography as well as selective engagement of the 3 vein grafts and the left internal mammary artery. The LCB catheter was used to perform bilateral selective renal angiography. At the end the procedure the apparatus was removed the sheath was removed good hemostasis was achieved using manual pressure patient was transferred to the postop putting in stable condition ANGIOGRAPHIC RESULTS The left main artery Has a distal 70 to 80% stenosis The left anterior descending artery Is proximally patent gives rise to a first septal senior analytical chemist and first diagonal artery and then occluded The circumflex artery Proximally occluded The right coronary artery Dominant proximally occluded The [place] ventriculogram reveals Not performed The left ventricular end-diastolic pressure Not measured [place] to LAD widely patent Saphenous to first diagonal artery widely patent Saphenous to large ramus intermedius patent Saphenous to large posterior descending artery patent No other vein graft to be cannulated Right renal artery singular normal Left renal artery singular normal IMPRESSION Excellent surgical revascularization as described above Normal renal arteries PLAN 1. Medical management 2. Risk factor modification Electronically signed by : Jose Angel Hauser MD 09/28/2023 15:20:32
[2023-09-28] MEDS: VANCOMYCIN/WATER FOR INJ (PEG) 1.25 GM/250 ML PIGGYBACK IV (14:09)
[2023-09-28] MEDS: diphenhydrAMINE 50MG/ML VIAL 50 MG IV (14:38)
[2023-09-28] MEDS: HEPARIN 1,000 UNITS/ML 10ML VIAL (CATH LAB) 10000 UNIT IV (14:41)
[2023-09-28] MEDS: HEPARIN 1,000 UNITS/500ML NS (CATH LAB) 3000 UNIT IV (14:41)
[2023-09-28] MEDS: 0.9 % SODIUM CHLORIDE 500 ML 25 ML IV (14:41)
[2023-09-28] MEDS: FENTANYL 100MCG/2ML VIAL 50 MCG IV (15:12)
[2023-09-28] MEDS: MIDAZOLAM HCL 1MG/1ML 5ML VIAL 1 MG IV (15:12)
[2023-09-28] MEDS: IOPAMIDOL-370 (76%);100ML BOTTLE 140 ML IV (15:54)
--- NOTE | 2023-09-28 17:50 | EXP.ACUTE.PN ---
Subjective *Date: 09/28/23 *Time: 17:50 Interval history: Patient feeling better this morning. No events overnight. Blood pressure doing better with changes in blood pressure meds. Stable on room air. Afebrile. No chest pain at this time. Medical Exam Vital signs and Labs for Last 24 Hours: Vital Signs Temp Pulse Pulse Resp BP Pulse Ox O2 Del Method 09/28/23 17:15 57 L 20 153/78 H 99 Room Air 09/28/23 17:00 Room Air 09/28/23 16:45 54 L 18 155/65 H 99 Room Air 09/28/23 16:30 50 L 18 164/81 H 96 Room Air 09/28/23 16:15 51 L 16 158/70 H 96 Room Air 09/28/23 16:00 98.6 F 60 18 152/67 H 99 Room Air 09/28/23 16:00 50 L 09/28/23 13:00 Room Air 09/28/23 12:00 97.8 F 59 L 16 148/82 H 96 Room Air 09/28/23 12:00 60 09/28/23 11:00 Room Air 09/28/23 09:00 Room Air 09/28/23 08:00 55 L 09/28/23 08:00 Room Air 09/28/23 08:00 97.6 F 61 16 146/61 H 99 Room Air 09/28/23 06:35 Room Air 09/28/23 05:00 Room Air 09/28/23 04:00 98.0 F 58 L 18 127/63 96 Room Air 09/28/23 04:00 98.0 F 58 L 18 127/63 96 Room Air 09/28/23 04:00 50 L 09/28/23 03:00 Room Air 09/28/23 01:00 Room Air 09/28/23 00:00 97.9 F 55 L 18 131/68 97 Room Air 09/28/23 00:00 50 L 09/27/23 23:00 Room Air 09/27/23 21:00 Room Air 09/27/23 20:00 Room Air 09/27/23 20:00 50 L 09/27/23 20:00 97.7 F 55 L 18 123/70 97 Room Air 09/27/23 18:58 Room Air 09/27/23 18:19 Room Air Intake and Output 09/28/23 09/28/23 09/28/23 07:59 15:59 23:59 Intake Total 240 / 240 Output Total 0 / 0 Balance 240 / 240 Intake: Intake, Oral Amount 240 / 240 Output: Output, Urine Amount 0 / 0 Other: Number of Unmeasured Voids 1 Weight 80.24 kg 80.24 kg Patient Weight 09/28/23 23:59 Weight 80.24 kg Laboratory Results - last 24 hr 09/27/23 18:10: Urine Color Yellow, Urine Appearance Clear, Urine pH 6.0, Ur Specific [place] 1.015, Urine Protein Negative, Urine Glucose (UA) Negative, Urine Ketones Negative, Urine Blood Negative, Urine Nitrate Negative, Urine Bilirubin Negative, Urine Urobilinogen 0.2, Ur Leukocyte Esterase Negative, Urine RBC None, Urine WBC None, Ur Squamous Epith Cells Occasional, Urine Bacteria None 09/27/23 19:29: Lactate 1.4, Troponin I < 0.01 09/28/23 05:47: WBC 7.6 D, RBC 3.52 L, Hgb 11.3 L D, Hct 36.9 L, MCV 105.0 H, MCH 32.2 H, MCHC 30.7 L, RDW 14.2, Plt Count 147, MPV 9.1, Neut % (Auto) 61.6, Lymph % (Auto) 28.7, [place] % (Auto) 6.2, Eos % (Auto) 2.9, Baso % (Auto) 0.6, Neut # (Auto) 4.7, Lymph # (Auto) 2.2, [place] # (Auto) 0.5, Eos # (Auto) 0.2, Baso # (Auto) 0.1, Sodium 138, Potassium 4.7, Chloride 112 H, Carbon Dioxide 29, Anion Gap 1.7 L, BUN 17, Creatinine 1.30 H, Estimated Creat Clear 56, Estimated GFR 54 L, Est GFR ( Amer) 65, Glucose 96, Calcium 8.8, Magnesium 1.9, Total Bilirubin 0.4, Direct Bilirubin 0.2, Conjugated Bilirubin 0.0, Indirect Bilirubin 0.2, Unconjugated Bilirubin 0.3, AST 29, ALT 22, Alkaline Phosphatase 59, Total Protein 5.5 L, Albumin 3.1 L D, Triglycerides 57, Cholesterol 107 L, LDL Cholesterol Direct 53.50 L, VLDL Cholesterol 11, HDL Cholesterol 38 L, Cholesterol/HDL Ratio 2.8 I & O for Labs for Last 24 Hours: Intake & Output 09/25/23 09/26/23 09/27/23 09/28/23 23:59 23:59 23:59 23:59 Intake Total 270 / 510 240 / 240 Output Total 300 / 300 0 / 0 Balance -30 / 210 240 / 240 Weight 75.296 kg 80.24 kg Constitutional: Present no acute distress and average body habitus Head: Present atraumatic and normocephalic ENT: Present normal exam Respiratory: Present normal respiratory effort; Absent rhonchi, wheezes or crackles Cardiac: Present Reg Rate and Rhythm GI: Present soft and normal bowel sounds; Absent distention or tenderness Extremities: Present normal inspection and full ROM Skin: Present intact; Absent erythema Neuro: Present Grossly Intact, alert, awake, oriented x 3 and moves all extremities Assessment and Plan *Assessment and plan (1) Hypotension: Status: Acute Category: Medical Code(s): I95.9 - Hypotension, unspecified (2) Weakness: Status: Acute Category: Medical Code(s): R53.1 - Weakness (3) Bradycardia: Status: Acute Category: Medical Code(s): R00.1 - Bradycardia, unspecified (4) S/P CABG x 5: Status: Acute Category: Surgical Code(s): Z95.1 - Presence of aortocoronary bypass graft (5) CAD in [place] artery: Status: Acute Category: Medical Code(s): I25.10 - Atherosclerotic heart disease of [place] coronary artery without angina pectoris (6) Lymphocytic colitis: Status: Acute Category: Medical Code(s): K52.832 - Lymphocytic colitis (7) HTN (hypertension): Status: Acute Qualifiers: Hypertension type: primary hypertension Qualified Code(s): I10 - Essential (primary) hypertension Category: Medical Code(s): I10 - Essential (primary) hypertension (8) HLD (hyperlipidemia): Status: Acute Qualifiers: Hyperlipidemia type: mixed hyperlipidemia Qualified Code(s): E78.2 - Mixed hyperlipidemia Category: Medical Code(s): E78.5 - Hyperlipidemia, unspecified Plan 77-year-old male with extensive cardiac history who presented to the ER with hypotension, low body temperature, leukocytosis. After receiving IV fluids, patient has had improvement in his blood pressure. Discussed case with ER physician, request admission for further cardiac workup and continued antibiotics given his tim abnormalities that are nonspecific on presentation. Medicine agreed to admit. Taken for heart cath today. Will continue to monitor overnight. If stable overnight with blood pressure medication changes, discharge in the morning. Problems addressed as follows: Hypotension History of CAD status post CABG x 5 Hyperlipidemia -Continue irbesartan 37.5 mg daily. Holding on beta-maria isabel as his heart rate remains in the 50s -Cardiology consulted, serial troponins negative. Going for heart cath today. No flow-limiting lesions identified. No stents placed. Continue to monitor overnight. -Continue Crestor 20 mg nightly. Cholesterol controlled with LDL of 53 -Repeat CBC, CMP, magnesium ordered for the morning -81 mg aspirin daily for CAD -Echo obtained, preliminary read with preserved ejection fraction Mood disorder: Continue Zoloft 25 mg daily per home regimen CKD 3: Creatinine 1.3 on morning labs, at baseline. Repeat labs ordered for the morning with CBC, CMP, magnesium Leukocytosis: - Unclear etiology. Normalized by this morning. White cell count 7.6. Suspect the marginalization versus steroid effect. If cultures remain negative with normal white count tomorrow, will discharge home on no antibiotics. Continue ceftriaxone 1 g IV daily for 48 hours Full code Heparin subcu twice daily Cardiac diet
[2023-09-28] MEDS: ATORVASTATIN 40MG TABLET 40 MG PO (20:52)
[2023-09-29] VITALS (7 sets, daily range): BP systolic 122–170; BP diastolic 67–87; PULSE 40–58; RESP 16–18; TEMP -17.7–36.7; O2SAT 96–100; BMI 28.5
--- NOTE | 2023-09-29 06:08 | PC.NURSE ---
Pt is alert and oriented x4 and is tolerating RA well. Pt remains on tele with a NSR. Pt has rested well and tolerated antibiotic therapy and fluids well. Pt denies pain and voices no needs, Pt at bedside.
[2023-09-29 06:36] LABS: Basophils % 0.6 % (0.1-2.0); Eosinophils # 0.2 K/mm3 (0.0-0.4); Eosinophils % 2.8 % (0.1-12.0); Hematocrit 35.6 % (42.0-52.0); Hemoglobin 10.9 g/dL (14.1-18.0); Lymphocytes # 1.7 K/mm3 (0.7-4.5); Lymphocytes % 24.1 % (10-50); Mean Corpuscular HGB Conc 30.8 g/dL (31.8-35.4); Mean Corpuscular Hemoglobin 32.3 pg (27.0-31.2); Mean Platelet Volume 8.7 fl (7.4-10.4); Monocytes # 0.5 K/mm3 (0.1-1.0); Monocytes % 6.8 % (1.7-9.3); Neutrophils # 4.7 K/mm3 (1.8-7.8); Neutrophils % 65.8 % (37.0-80.0); Platelet Count 131 K/mm3 (142-424); Red Blood Count 3.39 M/mm3 (4.60-6.20); Red Cell Distribution Width 14.2 % (11.5-17.5); White Blood Count 7.2 K/mm3 (4.8-10.8)
[2023-09-29 06:43] LABS: Chloride 111 mmol/L (98-107); Potassium 4.4 mmoL/L (3.5-5.1); Sodium 139 mmol/L (136-145)
[2023-09-29 06:45] LABS: Alanine Aminotransferase 23 U/L (12-78); Aspartate Amino Transferase 32 U/L (17-59); Blood Urea Nitrogen 12 mg/dl (9-20); Creatinine Clearance Estimated 62 mL/min (50-200); Estimated Glomerular Filt Rate 59 ml/min (>60); GFR (African American) 71 ML/MIN (>60)
[2023-09-29 06:46] LABS: Albumin Level 3.1 g/dl (3.5-5.0); Albumin/Globulin Ratio 1.3 (1.1-1.8); Alkaline Phosphatase 60 U/L (38-126); Anion Gap 6.4 mEq/L (5-15); Bilirubin,Total 0.4 mg/dl (0.2-1.3); Calcium 8.7 mg/dl (8.4-10.2); Carbon Dioxide 26 mmol/L (22.0-30.0); Globulin 2.4 g/dL (1.3-3.2); Glucose 93 mg/dl (74-100); Magnesium 1.9 mg/dl (1.6-2.3); Total Protein,Serum 5.5 g/dl (6.3-8.2)
[2023-09-29] MEDS: ASPIRIN EC 81MG TABLET 81 MG PO (08:27)
[2023-09-29] MEDS: SERTRALINE 50MG TABLET 25 MG PO (08:28)
[2023-09-29] MEDS: IRBESARTAN 75MG TABLET 75 MG PO (08:28)
--- NOTE | 2023-09-29 08:49 | P.DS_ITS ---
General Admission date:: 09/27/23 Discharge date: 09/29/23 HPI HPI HPI: Mr. Lopez a 77-year-old male with history of hypertension, CAD, hyperlipidemia, 5 vessel CABG 13 years ago. He presented to the ER because of weakness and shortness of breath. States that it began an hour or so after taking his morning medications. He was playing with his great granddaughter and became more weak and fatigued afterward. States that after playing with her he went to get gas and while getting gas did not feel like himself. Was tingly in his hands and his feet. [address] short of breath and very weak. Given his light headedness and weakness, EMS was contacted. He denies any tim chest pain, vomiting, diarrhea, syncope, loss of consciousness. Was given IV fluids by EMS during transport. Noted to be hypotensive. On arrival, vitals concerning for mild hypothermia, bradycardia, hypotension. Noted to have leukocytosis on labs. Chest imaging relatively unremarkable. Given hypotension and bradycardia, medicine was consulted for admission and serial troponins and further workup. After arriving to the floor, patient has received 2 L of IV fluids. Was treated empirically with cefepime and vancomycin because of his leukocytosis and hypotension. Blood pressure is normalized. He is alert and oriented x 4. Family at bedside. Body temperature is normalized. Discussion about his medications seems to present some confusion. Family thought he had finished his steroids (budesonide) for his lymphocytic colitis, he states he still had a day or 2 and was taking them at this time. Is also concerned about his morning blood pressure meds possibly being a culprit in his symptoms. He overall feels better at this time. Family states he is at baseline mentation. In no acute distress on room air. Hospital Course Hospital Course Hospital Course: 77-year-old male with extensive cardiac history who presented to the ER with hypotension, low body temperature, leukocytosis. After receiving IV fluids, patient has had improvement in his blood pressure. Discussed case with ER physician, request admission for further cardiac workup and continued antibiotics given his tim abnormalities that are nonspecific on presentation. Medicine agreed to admit. Taken for heart cath on 09/27. No stents placed. M onitored overnight. Given clinical stability, will discharge home with close follow-up. Problems addressed as follows: Hypotension History of CAD status post CABG x 5 Hyperlipidemia -Patient presented with an episode of bradycardia, hypotension, hypothermia. Responded promptly to fluids with normalization and vitals and stability of body temperature. White cell count was initially elevated, normalized by the following morning. Adjustments made to blood pressure medications. Concern that his symptoms were related to the doses of his medications or potentially inadvertently taking too much medication. Given his hypotension and bradycardia, cardiology was consulted. Troponins were negative during admission. Taken for heart cath with no flow-limiting lesions identified. No stents were necessary. Monitored overnight. Made adjustments to his medications. Continue Crestor 20 mg nightly. Continue aspirin 81 mg daily. Will continue irbesartan daily. Holding beta-blockers at this time. Echo obtained during admission showing preserved ejection fraction. Stable to discharge with further follow-up and management as an outpatient. Mood disorder: Continue Zoloft 25 mg daily per home regimen CKD 3: Creatinine 1.3 on morning labs, at baseline Leukocytosis: - Unclear etiology. Normalized by morning after admission. White cell count 7.6. Suspect demarginalization versus steroid effect (received in the ER). Cultures remains negative, no signs of infection. Discontinued antibiotics after 48 hours. Exam Data for Last 24 hours Vital signs and Labs for Last 24 Hours: Temp Pulse Resp BP Pulse Ox O2 Del Method 0 F L 52 L 16 147/67 H 100 Room Air 09/29/23 08:28 09/29/23 08:28 09/29/23 08:28 09/29/23 08:28 09/29/23 08:28 09/29/23 08:28 Laboratory Results - last 24 hr 09/29/23 05:53: WBC 7.2, RBC 3.39 L, Hgb 10.9 L, Hct 35.6 L, MCV 105.0 H, MCH 32.3 H, MCHC 30.8 L, RDW 14.2, Plt Count 131 L, MPV 8.7, Neut % (Auto) 65.8, Lymph % (Auto) 24.1, [place] % (Auto) 6.8, Eos % (Auto) 2.8, Baso % (Auto) 0.6, Neut # (Auto) 4.7, Lymph # (Auto) 1.7, [place] # (Auto) 0.5, Eos # (Auto) 0.2, Baso # (Auto) 0.0, Sodium 139, Potassium 4.4, Chloride 111 H, Carbon Dioxide 26, Anion Gap 6.4, BUN 12 D, Creatinine 1.20, Estimated Creat Clear 62, Estimated GFR 59, Est GFR ( Amer) 71, Glucose 93, Calcium 8.7, Magnesium 1.9, Total Bilirubin 0.4, AST 32, ALT 23, Alkaline Phosphatase 60, Total Protein 5.5 L, Albumin 3.1 L, Globulin 2.4, Albumin/Globulin Ratio 1.3 I & O for Last 24 hours: Intake & Output 09/26/23 09/27/23 09/28/23 09/29/23 23:59 23:59 23:59 23:59 Intake Total 270 / 510 1050 / 2085 1275 / 1275 Output Total 300 / 300 0 / 0 0 / 0 Balance -30 / 210 1050 / 2085 1275 / 1275 Weight 75.296 kg 80.24 kg 82.355 kg Constitutional Constitutional: no acute distress, average body habitus and cooperative *Routine HEENT Exam Head: Present normocephalic Eye: Present EOMI and PERRL ENT: Present mucous membranes moist *Routine Neck Exam Neck: Present supple; Absent lymphadenopathy *Routine Respiratory Exam Respiratory: Present CTA bilaterally; Absent rhonchi, wheezes or crackles *Routine Cardiovascular Exam Cardiovascular: Present RRR *Routine Abdominal Exam Abdominal: Present soft and normoactive bowel sounds; Absent tenderness *Routine Extremities Exam Extremities: Absent cyanosis, clubbing or edema *Routine Skin Exam Skin: Present warm; Absent rash *Routine Neurological Exam Neurological: Present alert, oriented X3 and moving all extremities; Absent altered mental status Results Data Completed and Pending Labs on day of discharge: Labs from last 24 hours 09/29/23 05:53 WBC 7.2 RBC 3.39 L Hgb 10.9 L Hct 35.6 L MCV 105.0 H MCH 32.3 H MCHC 30.8 L RDW 14.2 Plt Count 131 L MPV 8.7 Neut % (Auto) 65.8 Lymph % (Auto) 24.1 Evangeline % (Auto) 6.8 Eos % (Auto) 2.8 Baso % (Auto) 0.6 Neut # (Auto) 4.7 Lymph # (Auto) 1.7 Evangeline # (Auto) 0.5 Eos # (Auto) 0.2 Baso # (Auto) 0.0 Sodium 139 Potassium 4.4 Chloride 111 H Carbon Dioxide 26 Anion Gap 6.4 BUN 12 D Creatinine 1.20 Estimated Creat Clear 62 Estimated GFR 59 Est GFR ( Amer) 71 Glucose 93 Calcium 8.7 Magnesium 1.9 Total Bilirubin 0.4 AST 32 ALT 23 Alkaline Phosphatase 60 Total Protein 5.5 L Albumin 3.1 L Globulin 2.4 Albumin/Globulin Ratio 1.3 DS: Diagnosis Discharge Diagnosis (1) Hypotension: Status: Acute Code(s): I95.9 - Hypotension, unspecified (2) Weakness: Status: Acute Code(s): R53.1 - Weakness (3) Bradycardia: Status: Acute Code(s): R00.1 - Bradycardia, unspecified (4) S/P CABG x 5: Status: Acute Code(s): Z95.1 - Presence of aortocoronary bypass graft (5) CAD in [place] artery: Status: Acute Code(s): I25.10 - Atherosclerotic heart disease of [place] coronary artery without angina pectoris (6) Lymphocytic colitis: Status: Acute Code(s): K52.832 - Lymphocytic colitis (7) HTN (hypertension): Status: Acute Code(s): I10 - Essential (primary) hypertension Qualifiers: Hypertension type: primary hypertension Qualified Code(s): I10 - Essential (primary) hypertension (8) HLD (hyperlipidemia): Status: Acute Code(s): E78.5 - Hyperlipidemia, unspecified Qualifiers: Hyperlipidemia type: mixed hyperlipidemia Qualified Code(s): E78.2 - Mixed hyperlipidemia Meds Home Medications and Allergies Home Medications Medication Instructions Recorded Confirmed Type rosuvastatin 40 mg tablet 20 mg PO HS 08/02/23 09/27/23 History sertraline 50 mg tablet 25 mg PO DAILY 08/02/23 09/27/23 History aspirin 81 mg tablet,delayed 81 mg PO DAILY 30 days #30 tabs 09/29/23 Rx release irbesartan 75 mg tablet 75 mg PO DAILY 30 days #30 tabs 09/29/23 Rx New Prescriptions to Start Prescriptions: Ryan Contreras irbesartan Ryan Hawkins Allergies Allergy/AdvReac Type Severity Reaction Status Date / Time amoxicillin Allergy Intermediate Rash Verified 09/07/23 15:23 Discharge Plan Disposition Patient Disposition: Home, Self-Care Condition: Fair Follow up Plan Follow up with: Jose Angel Hauser MD [Staff Physician] - 10/05/23 2:45 pm Betty Fatima APRN [Primary Care Provider] - 10/05/23 9:00 am Prescriptions/Medication Reconciliation: New aspirin 81 mg Tablet,Delayed Release (Dr/Ec) 81 mg PO DAILY 30 Days Qty: 30 0RF irbesartan 75 mg Tablet 75 mg PO DAILY 30 Days Qty: 30 0RF Continued sertraline 50 mg tablet 25 mg PO DAILY rosuvastatin 40 mg tablet 20 mg PO HS Discontinued metoprolol tartrate 25 mg tablet 12.5 mg PO BID losartan 50 mg tablet 50 mg PO DAILY Problem Reconciliation Problems Reviewed?: Yes Patient Discharge Instructions ACTIVITY: Continue current activity DIET: continue same diet Patient Instructions: DI for Acute Coronary Syndrome, Heart-Healthy Diet, DI for Cardiac Catheterization, DI for Surgical Site Infection Providers Primary Care Provider: Betty Fatima Admit Provider: Ryan Hawkins Attending Provider: Ryan Hawkins
--- NOTE | 2023-09-29 10:05 | EXP.CARD.PN ---
Subjective Subjective Date: 09/29/23 Time: 10:00 Principal diagnosis: CAD Interval history: This is a 77-year-old gentleman who presented to the emergency department complaints of shortness of breath and weakness. The patient was found to have unstable angina and underwent left cardiac catheterization yesterday. Patient was found to have patent coronary artery disease with excellent surgical revascularization. No intervention was required. This morning he states that he feels great. He denies any chest pain or pressure. He denies any shortness of breath or edema. He denies any fever, chills, nausea, vomiting, diarrhea, PND or orthopnea. Exam Data for Last 24 hours Vital signs and Labs for Last 24 Hours: Temp Pulse Resp BP Pulse Ox O2 Del Method 0 F L 52 L 16 147/67 H 100 Room Air 09/29/23 08:28 09/29/23 08:28 09/29/23 08:28 09/29/23 08:28 09/29/23 08:28 09/29/23 08:28 Laboratory Results - last 24 hr 09/29/23 05:53: WBC 7.2, RBC 3.39 L, Hgb 10.9 L, Hct 35.6 L, MCV 105.0 H, MCH 32.3 H, MCHC 30.8 L, RDW 14.2, Plt Count 131 L, MPV 8.7, Neut % (Auto) 65.8, Lymph % (Auto) 24.1, [place] % (Auto) 6.8, Eos % (Auto) 2.8, Baso % (Auto) 0.6, Neut # (Auto) 4.7, Lymph # (Auto) 1.7, [place] # (Auto) 0.5, Eos # (Auto) 0.2, Baso # (Auto) 0.0, Sodium 139, Potassium 4.4, Chloride 111 H, Carbon Dioxide 26, Anion Gap 6.4, BUN 12 D, Creatinine 1.20, Estimated Creat Clear 62, Estimated GFR 59, Est GFR ( Amer) 71, Glucose 93, Calcium 8.7, Magnesium 1.9, Total Bilirubin 0.4, AST 32, ALT 23, Alkaline Phosphatase 60, Total Protein 5.5 L, Albumin 3.1 L, Globulin 2.4, Albumin/Globulin Ratio 1.3 I & O for Last 24 hours: Intake & Output 09/26/23 09/27/23 09/28/23 09/29/23 23:59 23:59 23:59 23:59 Intake Total 270 / 510 1049 / 2084 1274 / 1274 Output Total 300 / 300 0 / 0 0 / 0 Balance -30 210 1049 / 2084 1274 / 1274 Weight 166 lb 176 lb 14.4 oz 181 lb 9 oz Constitutional Constitutional: no acute distress and average body habitus *Routine HEENT Exam Head: Present normocephalic and atraumatic ENT: Present mucous membranes moist *Routine Neck Exam Neck: Present supple, full ROM and normal carotid upstroke; Absent JVD, carotid bruit or lymphadenopathy *Routine Respiratory Exam Respiratory: Present CTA bilaterally, normal respiratory effort, able to speak in complete sentences and symmetric chest movement *Routine Cardiovascular Exam Cardiovascular: Present RRR, Normal S1 and Normal S2; Absent murmur or gallop *Routine Abdominal Exam Abdominal: Present soft and normoactive bowel sounds; Absent tenderness, distended or organomegaly *Routine Extremities Exam Extremities: Present full ROM, pulses intact and normal capillary refill; Absent cyanosis, clubbing or edema *Routine Skin Exam Skin: Present intact and warm; Absent erythema *Routine Neurological Exam Neurological: Present alert, oriented X3 and CN II-XII intact; Absent sensory deficit or motor deficit Routine Psychiatric Exam Psychiatric: Present normal affect Progress Note: A&P Assessment and plan (1) CAD in [place] artery: Status: Acute (2) S/P CABG x 5: Status: Acute (3) Hypotension: Status: Acute (4) Weakness: Status: Acute (5) Bradycardia: Status: Acute (6) Lymphocytic colitis: Status: Acute (7) HTN (hypertension): Status: Acute (8) HLD (hyperlipidemia): Status: Acute (9) Abnormal electrocardiogram [ECG] [EKG]: Status: Acute Assessment and Plan Assessment and Plan for All Diagnoses:: Plan: 1. The patient presented to the hospital with symptoms concerning for unstable angina. He did undergo a left cardiac catheterization yesterday. He was found to have patent coronary artery disease with excellent surgical revascularization and no intervention was required. CAD is stable. We do recommend aspirin 81 mg daily. 2. His blood pressure is slightly elevated today. Recommend increasing his irbesartan to 75 mg p.o. daily. 3. Continue to hold metoprolol due to the bradycardia. 4. His LDL goal is less than 55. His LDL is 53. Continue statin. 5. His echocardiogram preliminary result shows that he has a preserved ejection fraction and no significant valve disease. 6. The patient is stable for discharge home today from a cardiac standpoint. The patient will need to follow-up in cardiology clinic in 1 to 2 weeks on an outpatient basis. He will need to be discharged on the following cardiac medications: Aspirin 81 mg daily, irbesartan 75 mg daily, Crestor 20 mg p.o. nightly. Thank you for the opportunity to help participate in the care of this patient. All recommendations and orders are per Dr. Ricardo.
--- NOTE | 2023-10-01 03:16 | PC.NURSE ---
prelim report received, assigned to dr wilson for continuity of care.
--- NOTE | 2023-10-02 12:58 | SW/DCPLANNER ---
Follow up phone call: patient's stated that patient is doing well at home at this time and does not have any further needs/questions.
== END 2023-09-29 12:52 | disposition home or self-care (01) ==
LOC: ER 15:33 → 2ND 16:34
PROVIDERS: Emergency Medicine; Internal Medicine; Nurse Practitioner Family; Admitting Provider Internal Medicine Adolescent Medicine; Emergency Provider Emergency Medicine; PCP Nurse Practitioner Family; Visit Provider Internal Medicine Adolescent Medicine
DX: R53.1 Weakness (principal); I95.9 Hypotension, unspecified; R00.1 Bradycardia, unspecified; Z95.1 Presence of aortocoronary bypass graft; K52.832 Lymphocytic colitis; I12.9 Hypertensive chronic kidney disease with stage 1 through stage 4 chronic kidney disease, or unspecified chronic kidney disease; E78.2 Mixed hyperlipidemia; R94.31 Abnormal electrocardiogram [ECG] [EKG]; I25.110 Atherosclerotic heart disease of native coronary artery with unstable angina pectoris; N18.30 Chronic kidney disease, stage 3 unspecified; Z79.899 Other long term (current) drug therapy
CPT/HCPCS: 36252; 36415; 70450; 71045; 80048; 80053; 80061; 80076; 81001; 82803; 83605; 83735; 83880; 84439; 84443; 84484; 85007; 85025; 87040; 93005; 93306; 93455; 99152; 99153; 99285; C1725; C1769; C1894; G0378; J0696; J1644; Q9967

== ENCOUNTER 2024-07-24 09:41 | Outpatient (CLI) | payer MEDICARE, SELFPAY ==
[2024-07-24 17:57] LABS: Microscopic, Urine URINE MICROSCOPIC (MICROSCOPIC)
[2024-07-24 19:25] LABS: Appearance,Urine CLEAR (Clear); Bilirubin,Urine Negative (Negative); Blood, Urine Negative (Negative); Color,Urine YELLOW (Yellow); Glucose,Urine (UA) Negative (Negative); Ketones,Urine Negative (Negative); Leukocyte Esterase,Urine Negative (Negative); Nitrate,Urine Negative (Negative); Protein,Urine Negative (Negative); Urobilinogen,Urine 0.2 EU/dl (0.2)
[2024-07-24 19:28] LABS: Red Blood Count 4.16 M/mm3 (4.60-6.20)
[2024-07-24 19:29] LABS: Basophils # 0.1 K/mm3 (0-0.2); Basophils % 0.9 % (0.1-2.0); Eosinophils # 0.3 K/mm3 (0.0-0.4); Eosinophils % 4.3 % (0.1-12.0); Hematocrit 41.1 % (42.0-52.0); Hemoglobin 13.4 g/dL (14.1-18.0); Lymphocytes # 2.2 K/mm3 (0.7-4.5); Lymphocytes % 31.2 % (10-50); Mean Corpuscular HGB Conc 32.6 g/dL (31.8-35.4); Mean Corpuscular Hemoglobin 32.2 pg (27.0-31.2); Mean Corpuscular Volume 98.8 fl (80-94); Mean Platelet Volume 11.1 fl (7.4-10.4); Monocytes # 0.8 K/mm3 (0.1-1.0); Monocytes % 10.9 % (1.7-9.3); Neutrophils # 3.7 K/mm3 (1.8-7.8); Neutrophils % 52.6 % (37.0-80.0); Platelet Count 159 K/mm3 (142-424); Red Cell Distribution Width 13.2 % (11.5-17.5)
[2024-07-24 19:32] LABS: Alanine Aminotransferase 28 U/L (12-78); Albumin Level 4.8 g/dl (3.5-5.0); Albumin/Globulin Ratio 1.8 (1.1-1.8); Alkaline Phosphatase 74 U/L (38-126); Anion Gap 14.4 mEq/L (5-15); Aspartate Amino Transferase 40 U/L (17-59); Bilirubin,Total 0.4 mg/dl (0.2-1.3); Blood Urea Nitrogen 25 mg/dl (9-20); Calcium 9.8 mg/dl (8.4-10.2); Carbon Dioxide 25 mmol/L (22.0-30.0); Chloride 104 mmol/L (98-107); Chol/HDL Ratio 2.9 (1-3.5); Cholesterol 148 mg/dl (140-200); Estimated Glomerular Filt Rate 54 ml/min (>60); GFR (African American) 65 ML/MIN (>60); Globulin 2.7 g/dL (1.3-3.2); Glucose 94 mg/dl (74-100); HDL Cholesterol 51 mg/dl (40-60); Phosphorous 2.8 mg/dl (2.5-4.5); Potassium 4.4 mmoL/L (3.5-5.1); Sodium 139 mmol/L (136-145); Total Protein,Serum 7.5 g/dl (6.3-8.2); Triglycerides 91 mg/dl (30-150); VLDL Cholesterol 18 mg/dL (0-40)
[2024-07-24 19:44] LABS: Free T4 (Free Thyroxine) 1.45 ng/dl (0.78-2.19)
[2024-07-24 19:45] LABS: Direct LDL Cholesterol 62.34 mg/dL (100-129)
[2024-07-24 20:04] LABS: Thyroid Stimulating Hormone 0.61 uIU/mL (0.465-4.68)
[2024-07-24 20:24] LABS: Vitamin B12 478 pg/mL (239-931)
== END 2024-07-24 23:59 | disposition home or self-care (01) ==
LOC: LAB.DROPOF 07-26 08:50
PROVIDERS: PCP Nurse Practitioner Family; Visit Provider Nurse Practitioner Family
DX: E78.2 Mixed hyperlipidemia (principal); F32.A Depression, unspecified; I10 Essential (primary) hypertension; E53.8 Deficiency of other specified B group vitamins; E55.9 Vitamin D deficiency, unspecified; R53.83 Other fatigue; R39.9 Unspecified symptoms and signs involving the genitourinary system
CPT/HCPCS: 80053; 80061; 81001; 82306; 82607; 83735; 84100; 84156; 84439; 84443; 85025; 87086

== ENCOUNTER 2024-11-07 15:11 | Outpatient (CLI) | payer MEDICARE, SELFPAY ==
[2024-11-08 13:19] LABS: C difficile Toxins AB, EIA Negative (Negative)
== END 2024-11-07 23:59 | disposition home or self-care (01) ==
PROVIDERS: PCP Nurse Practitioner Family; Visit Provider Nurse Practitioner Family
DX: K52.832 Lymphocytic colitis (principal); R19.7 Diarrhea, unspecified; R10.9 Unspecified abdominal pain; R63.0 Anorexia; Z68.28 Body mass index [BMI] 28.0-28.9, adult
CPT/HCPCS: 87045; 87324

== ENCOUNTER 2025-01-20 10:39 | Outpatient (CLI) | payer MEDICARE, SELFPAY ==
--- OUTSIDE RECORDS SUMMARY | 2025-01-20 04:44 | XMS_ITS | Continuity of Care Document ---
Author Name [facility] Organization [facility] Care Team Providers Care Remelter Name Role Phone [facility] Unavailable Unavailable Problems Combined list of problems from Department of Defense and [facility] Affairs facilities. It does not include entries that were removed or entered in error. Problem Status Onset Date Problem Type Date of Resolution Comments Source Allergic rhinitis * (ICD-9-CM 477.9) Active [place] [facility] Anxiety Active Condition [place] [facility] Anxiety Disorder NOS * (ICD-9-CM 300.00) Active Condition [place] [facility] Benign essential hypertension [facility] Benign hypertension Active Condition [place] [facility] Carpal Tunnel Syndrome * (ICD-9-CM 354.0) [facility] Chronic kidney disease stage 3A Active Condition [place] [facility] Coronary arteriosclerosis Active Condition [place] [facility] Coronary arteriosclerosis Active Condition [place] [facility] Depressive Disorder NOS * (ICD-9-CM 311.) Active Condition [place] [facility] Diabetes mellitus (SNOMED CT 24699625) Active Condition [place] [facility] Diabetes Mellitus Type II or unspecified * (ICD-9-CM 250.00) Active [place] [facility] Exposure to potentially hazardous substance Active Condition [place] [facility] Gastroesophageal reflux disease [facility] Gastroesophageal reflux disease Active Condition [place] [facility] History of polyp of colon Active Condition [place] [facility] HTN * (ICD-9-CM 401.9) [facility] Hyperlipidemia Active [place] [facility] Hyperlipidemia Active Condition [place] [facility] Mild Nonprolf Db Retnoph Active [facility] Mood disorder Active Condition [place] [facility] PTSD Active Condition [facility] Serrated polyp of colon Active Condition November 06, 2015 Entered By: JOEL PRAJAPATI Comment: repeat c-scope 2016 Entered By: MARY PAPPAS Comment: no polyps May 2016 -- repeat in 3 years (05/2019). 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 Condition 01/18/2011 [facility] Hypertensive disorder Inactive Condition 01/18/2011 [facility] Diagnosis: ICD-10-CM Z71.89 Other specified counseling Active Diagnosis [facility] Diagnosis: ICD-10-CM I10 Essential (primary) hypertension Active Diagnosis [facility] Diagnosis: ICD-10-CM E11.9 Type 2 diabetes mellitus without complications Active Diagnosis [facility] Diagnosis: ICD-10-CM K02.52 Dental caries on pit and fissure surfc penetrat into dentin Active Diagnosis [facility] Diagnosis: ICD-10-CM K02.51 Dental caries on pit and fissure surface limited to enamel Active Diagnosis [facility] Diagnosis: ICD-10-CM N18.31 Chronic kidney disease, stage 3a Active Diagnosis [facility] Diagnosis: ICD-10-CM R19.7 Diarrhea, unspecified Active Diagnosis [facility] Diagnosis: ICD-10-CM K03.6 Deposits [accretions] on teeth Active Diagnosis [facility] Medications Combined list of outpatient medications from Department of Defense and [facility] Affairs facilities.Medications provided include 1) outpatient medications from the last 15 months, and 2) patient-reported medications. Medication Details Route Status Patient Instructions Prescription Expires Prescription Number Last Dispense Date Ordering Provider Order Date Order Qty Source IRBESARTAN 150MG TAB TAKE ONE-HALF TABLET BY MOUTH DAILY ORAL ACTIVE JANIYA HALL Saw 2023 [place] [facility] NO KNOWN NON-VA MEDS NOT APPLIC ABLE ACTIVE Saw YEPEZ 2006 [place] [facility] ROSUVASTATI N CA 40MG TAB TAKE ONE-HALF TABLET BY MOUTH AT BEDTIME FOR CHOLESTE ROL (REPLACE S ATORVAST ATIN) ORAL ACTIVE 01/14/2026 [id number] VINCENT LAY 2024 45 [place] [facility] ROSUVASTATI N CA 40MG TAB TAKE ONE-HALF TABLET BY MOUTH AT BEDTIME FOR CHOLESTE ROL (REPLACE S ATORVAST ATIN) ORAL DISCONT INUED 03/14/2025 [id number] 5 VINCENT LAY 2023 45 [place] [facility] SERTRALINE HCL 50MG TAB TAKE ONE-HALF TABLET BY MOUTH DAILY FOR ANXIETY. ORAL ACTIVE 01/14/2026 [id number] VINCENT LAY 2024 45 [place] [facility] SERTRALINE HCL 50MG TAB TAKE ONE-HALF TABLET BY MOUTH DAILY FOR ANXIETY. ORAL DISCONT INUED 03/14/2025 [id number] VINCENT LAY 2023 45 [place] [facility] Allergies, Adverse Reactions, Alerts Combined list of allergies from Department of Defense and [facility] Affairs facilities. It does not include entries that were removed or entered in error. Substance Category Reaction Severity Reaction type Status Date Reported Comments Source AMOXICILLIN Propensity to adverse reactions to drug (finding) Urticaria , Eruption, Dyspnea active 4 [facility] LIPITOR Propensity to adverse reactions to drug (finding) Muscle pain active 3 [facility] LISINOPRIL Propensity to adverse reactions to drug (finding) active 7 [facility] SIMVASTATIN Propensity to adverse reactions to drug (finding) active 8 [facility] Immunizations Combined list of available immunizations from the Department of Defense and Veterans Affairs facilities. Immunization Series Date Given Administered By Site Reaction Lot Number CVX Code Drug Supervisor Particleboard Status Comments Source PNEUMOCOCCAL CONJUGATE PCV20, POLYSACCHARID E [id number] CONJUGATE, ADJUVANT, PF 2021 216 complet ed [place] [facility] (PFIZER), MRNA, LNP-S, PF, 30 MCG/0.3 ML DOSE 2 2020 208 complet ed PFR; [id number]; 1 [place] [facility] COVID-19 (PFIZER), MRNA, LNP-S, PF, 30 MCG/0.3 ML DOSE 1 2020 208 complet ed PFR; [id number]; 1 [place] [facility] PNEUMOCOCCAL POLYSACCHARID E [id number] 2018 33 complet ed [place] [facility] ZOSTER RECOMBINANT 2 2017 187 complet ed [place] [facility] Z[facility] RECOMBINANT 1 2017 187 complet ed [place] [facility] TDAP 2016 115 complet ed [place] [facility] INFLUENZA A & B (HISTORICAL) 2015 88 complet ed [place] [facility] FLU,3 YRS (HISTORICAL) 2014 88 complet ed [place] [facility] [id number] (HISTORICAL) 2014 133 complet ed [place] [facility] INFLUENZA A & B (HISTORICAL) 2014 88 complet ed UTD [place] AMIS/LD ZOSTER LIVE 2013 121 complet ed [place] [facility] FLU,3 YRS (HISTORICAL) 2010 88 complet ed [place] [facility] FLU,3 YRS (HISTORICAL) 2008 88 complet ed [place] [facility] INFLUENZA A & B (HISTORICAL) 2007 88 complet ed [place] [facility] FLU,3 YRS (HISTORICAL) 2005 88 complet ed [place] [facility] INFLUENZA A & B (HISTORICAL) 2005 88 complet ed [place] [facility] TETANUS TOXOID, UNSPECIFIED FORMULATION 2005 112 complet ed [place] [facility] INFLUENZA A & B (HISTORICAL) 2004 88 complet ed pt not sure about last yr [place] [facility] PNEUMOCOCCAL, UNSPECIFIED FORMULATION 2003 MELINA DUQUE 109 complet ed [place] [facility] TD (ADULT), 2 LF TETANUS TOXOID, PRESERVATIVE FREE, ADSORBED 1 1996 09 complet ed HISTORICA L INFORMATI ON - FROM OTHER REGISTRY, [place] [facility] TD(ADULT) UNSPECIFIED FORMULATION 1996 139 complet ed [place] [facility] Results Combined list of recent chemistry, hematology and other laboratory results from Department of Defense and Veterans Affairs, ranging from 15 months to all on record, depending upon the facility. Order Name Results Value Reference Range Date Interpretation Specimen Comments Source CBC/PLT LEUKOCYTES [#/VOLUME] IN BLOOD BY AUTOMATED COUNT 11.8 10*3/uL 5.0 - 10.0 01/13 H Specimen Type: BLOOD No comment entered. Ordering Provider: Roslyn LAY Report Released Date/Time: Jan 13, 2025 08:27 AM Reporting Lab: [address] [address] Performing Lab: [place] [id number] [facility] CBC/PLT ERYTHROCYT ES [#/VOLUME] IN BLOOD BY AUTOMATED COUNT 4.27 10*6/uL 4.6 - 6.2 01/13 L Specimen Type: BLOOD No comment entered. Ordering Provider: Roslyn LAY Report Released Date/Time: Jan 13, 2025 08:27 AM Reporting Lab: [address] [address] Performing Lab: [address] [address] [facility] CBC/PLT HEMOGLOBIN [MASS/VOLU ME] IN BLOOD 13.7 g/dL 14.0 - 18.0 01/13 L Specimen Type: BLOOD No comment entered. Ordering Provider: Roslyn LAY Report Released Date/Time: Jan 13, 2025 08:27 AM Reporting Lab: [place] [address] Performing Lab: [address] CBC/PLT HEMATOCRIT [VOLUME FRACTION] OF BLOOD BY AUTOMATED COUNT 42.2 42.0 - 52.0 01/13 Specimen Type: BLOOD No comment entered. Ordering Provider: Roslyn LAY Report Released Date/Time: Jan 13, 2025 08:27 AM Reporting Lab: [place] [address] Performing Lab: [address] CBC/PLT MCV [ENTITIC VOLUME] BY AUTOMATED COUNT 98.8 fL 80.0 - 94.0 01/13 H Specimen Type: BLOOD No comment entered. Ordering Provider: Roslyn LAY Report Released Date/Time: Jan 13, 2025 08:27 AM Reporting Lab: [place] [address] Performing Lab: [address] CBC/PLT MCH [ENTITIC MASS] BY AUTOMATED COUNT 32.1 pg 27.0 - 31.0 01/13 H Specimen Type: BLOOD No comment entered. Ordering Provider: Roslyn LAY Report Released Date/Time: Jan 13, 2025 08:27 AM Reporting Lab: [place] [address] Performing Lab: [address] CBC/PLT MCHC [MASS/VOLU ME] BY AUTOMATED COUNT 32.5 g/dL 32.0 - 36.0 01/13 Specimen Type: BLOOD No comment entered. Ordering Provider: Roslyn LAY Report Released Date/Time: Jan 13, 2025 08:27 AM Reporting Lab: [place] [id number] Performing Lab: [address] CBC/PLT PLATELETS [#/VOLUME] IN BLOOD 192 10*3/uL 150 - 450 01/13 Specimen Type: BLOOD No comment entered. Ordering Provider: Roslyn LAY Report Released Date/Time: Jan 13, 2025 08:27 AM Reporting Lab: [address] [address] Performing Lab: [place] [id number] [place] [address] CBC/PLT PLATELET MEAN VOLUME [ENTITIC VOLUME] IN BLOOD 10.9 fL 9.0 - 13.1 01/13 Specimen Type: BLOOD No comment entered. Ordering Provider: Roslyn LAY Report Released Date/Time: Jan 13, 2025 08:27 AM Reporting Lab: [place] [id number] Performing Lab: [place] [id number] [place] [address] CBC/PLT ERYTHROCYT E DISTRIBUTI ON WIDTH [ENTITIC VOLUME] BY AUTOMATED COUNT 13.4 11.0 - 16.0 01/13 Specimen Type: BLOOD No comment entered. Ordering Provider: Roslyn LAY Report Released Date/Time: Jan 13, 2025 08:27 AM Reporting Lab: [place] [phone] Performing Lab: [place] [id number] [place] [address] CBC/PLT NUCLEATED ERYTHROCYT ES/100 ERYTHROCYT ES IN BLOOD 0.0 0.0 - 0.0 01/13 Specimen Type: BLOOD No comment entered. Ordering Provider: Roslyn LAY Report Released Date/Time: Jan 13, 2025 08:27 AM Reporting Lab: [address] [address] Performing Lab: [address] [address] [facility] GLYCOHEM OGLOBIN HEMOGLOBIN A1C/HEMOGL OBIN.TOTAL IN BLOOD BY HPLC 5.5 4.4 - 5.6 01/13 Specimen Type: BLOOD Comment: Prediabetes : 5.7%-6.4% Diabetes: >= 6.5% [facility] guidelines for A1c interpretat ion: Glycemic control targets are based on Shared Decision Making between clinicians and patients. Criteria used to establish an A1c target recommendat ion can be found at https://www .or.gov/ashli lityandpati entsafety/ and include the use of [...] 9.27. Ref: https://ngs p.org/CAPda ta.asp. The in-house [employer] Geo D-100 analyzer has a historical CV <= 2%. Contact the laboratory for further performance characteris tics of this assay. Ordering Provider: Roslyn LAY Report Released Date/Time: Jan 13, 2025 08:27 AM Reporting Lab: [address] [address] Performing Lab: [address] [address] [facility] LIPID PROFILE CHOLESTERO L [MASS/VOLU ME] IN [...] 2025 08:27 AM Reporting Lab: [place] [address] [address] Performing Lab: [facility] [place] [address] [address] [facility] LIPID PROFILE TRIGLYCERI DE [MASS/VOLU ME] IN [...] 2025 08:27 AM Reporting Lab: [facility] [address] [address] Performing Lab: [facility] [place] [address] [address] [facility] LIPID PROFILE CHOLESTERO L IN HDL [MASS/VOLU [...] 2025 08:27 AM Reporting Lab: [facility] [place] [address] [address] Performing Lab: [facility] [place] [address] [address] [facility] LIPID PROFILE CHOLESTERO L IN LDL [MASS/VOLU [...] AM Reporting Lab: [facility] [place] [address] [facility] [address] Performing Lab: [place] [id number] [facility] MICROALB UMIN/CRE AT RATIO CREATININE [MASS/VOLU ME] IN URINE 310.5 mg/dL 01/13 Specimen Type: URINE No comment entered. Ordering Provider: Roslyn LAY Report Released Date/Time: Jan 13, 2025 08:27 AM Reporting Lab: [place] [phone] Performing Lab: [place] [phone] [facility] MICROALB UMIN/CRE AT RATIO MICROALBUM IN [MASS/VOLU ME] IN URINE 24.9 mg/L 0.0 - 30.0 01/13 Specimen Type: URINE No comment entered. Ordering Provider: Roslyn LAY Report Released Date/Time: Jan 13, 2025 08:27 AM Reporting Lab: [place] [phone] Performing Lab: [place] [phone] [facility] MICROALB UMIN/CRE AT RATIO MICROALBUM IN/CREATIN INE [MASS RATIO] IN URINE 8.0 ug/mg{cr eat} 01/13 Specimen Type: URINE No comment entered. Ordering Provider: Roslyn LAY Report Released Date/Time: Jan 13, 2025 08:27 AM Reporting Lab: [place] [phone] Performing Lab: [place] [phone] [facility] PANEL 5 CREATININE [MASS/VOLU ME] IN SERUM [...] 2025 08:27 AM Reporting Lab: [facility] [place] [address] [address] Performing Lab: [facility] [address] [address] [facility] PANEL 5 UREA NITROGEN [MASS/VOLU ME] IN SERUM OR PLASMA 26 mg/dL 9 - 25 01/13 H Specimen Type: PLASMA Comment: Estimated [...] 2025 08:27 AM Reporting Lab: [facility] [facility] [address] [address] Performing Lab: [facility] [address] [address] [facility] PANEL 5 GLUCOSE [MASS/VOLU ME] IN SERUM [...] AM Reporting Lab: [facility] [address] [facility] [address] Performing Lab: [facility] [address] [facility] [address] [facility] PANEL 5 SODIUM [MOLES/VOL UME] IN SERUM [...] AM Reporting Lab: [facility] [address] [facility] [address] Performing Lab: [facility] [address] [address] [facility] PANEL 5 POTASSIUM [MOLES/VOL UME] IN SERUM [...] AM Reporting Lab: [facility] [address] [facility] [address] Performing Lab: [facility] [place] [address] [address] [facility] PANEL 5 CHLORIDE [MOLES/VOL UME] IN SERUM [...] 2025 08:27 AM Reporting Lab: [place] [place] [address] [address] Performing Lab: [facility] [address] [place] [address] [facility] PANEL 5 CARBON DIOXIDE, TOTAL [MOLES/VOL UME] [...] AM Reporting Lab: [facility] [address] [place] [address] Performing Lab: [facility] [place] [address] [address] [facility] PANEL 5 CALCIUM [MASS/VOLU ME] IN SERUM [...] 2025 08:27 AM Reporting Lab: [place] [address] [address] Performing Lab: [place] [place] [address] [address] [facility] PANEL 5 PROTEIN [MASS/VOLU ME] IN SERUM [...] 2025 08:27 AM Reporting Lab: [place] [address] [address] Performing Lab: [facility] [place] [address] [address] [facility] PANEL 5 ALBUMIN [MASS/VOLU ME] IN SERUM [...] 2025 08:27 AM Reporting Lab: [place] [address] [address] Performing Lab: [place] [address] [address] [facility] PANEL 5 BILIRUBIN. TOTAL [MASS/VOLU ME] IN [...] 2025 08:27 AM Reporting Lab: [place] [address] [address] Performing Lab: [facility] [place] [address] [address] [facility] PANEL 5 ASPARTATE AMINOTRANS FERASE [ENZYMATIC ACTIVITY/V [...] 2025 08:27 AM Reporting Lab: [place] [address] [address] Performing Lab: [place] [address] [address] [facility] PANEL 5 ALANINE AMINOTRANS FERASE [ENZYMATIC ACTIVITY/V OLUME] IN SERUM OR PLASMA 19 U/L 0 - 55 01/13 Specimen Type: PLASMA Comment: Estimated Glomerular [...] 2025 08:27 AM Reporting Lab: [place] [address] [address] Performing Lab: [facility] [place] [address] [address] [facility] PANEL 5 ANION GAP 3 IN SERUM [...] 2025 08:27 AM Reporting Lab: [place] [address] [address] Performing Lab: [facility] [address] [address] [facility] PANEL 5 ALKALINE PHOSPHATAS E [ENZYMATIC ACTIVITY/V [...] AM Reporting Lab: [facility] [address] [facility] [address] Performing Lab: [facility] [place] [address] [facility] [address] [facility] PANEL 5 GLOMERULAR FILTRATION RATE/1.73 SQ M.PREDICTE [...] 2025 08:27 AM Reporting Lab: [facility] [place] [address] [address] Performing Lab: [facility] [address] [address] [facility] TSH THYROTROPI N [UNITS/VOL UME] IN SERUM [...] Jan 13, 2025 08:27 AM Reporting Lab: [address] [address] Performing Lab: [address] [phone] [place] [address] URINALYS IS COLOR OF URINE Colorles s 02/08 Specimen Type: URINE Comment: Microscopic not indicated Ordering Provider: ANGELIQUE TOLEDO Report Released Date/Time: Feb 08, 2024 01:14 PM Reporting Lab: [address] [address] Performing Lab: [address] [phone] [place] [address] URINALYS IS APPEARANCE OF URINE Clear 02/08 Specimen Type: URINE Comment: Microscopic not indicated Ordering Provider: ANGELIQUE TOLEDO Report Released Date/Time: Feb 08, 2024 01:14 PM Reporting Lab: [address] [address] Performing Lab: [address] [phone] [place] [address] URINALYS IS UROBILINOG EN [MASS/VOLU ME] IN URINE BY TEST STRIP Normalmg /dL 02/08 Specimen Type: URINE Comment: Microscopic not indicated Ordering Provider: ANGELIQUE TOLEDO Report Released Date/Time: Feb 08, 2024 01:14 PM Reporting Lab: [address] [address] Performing Lab: [address] [address] [facility] URINALYS IS HEMOGLOBIN [PRESENCE] IN URINE BY TEST STRIP Negative 02/08 Specimen Type: URINE Comment: Microscopic not indicated Ordering Provider: ANGELIQUE TOLEDO Report Released Date/Time: Feb 08, 2024 01:14 PM Reporting Lab: [address] [address] Performing Lab: [phone] [place] [address] URINALYS IS BILIRUBIN. TOTAL [PRESENCE] IN URINE BY TEST STRIP Negative 02/08 Specimen Type: URINE Comment: Microscopic not indicated Ordering Provider: ANGELIQUE TOLEDO Report Released Date/Time: Feb 08, 2024 01:14 PM Reporting Lab: [address] [address] Performing Lab: [address] [phone] [place] [address] URINALYS IS KETONES [MASS/VOLU ME] IN URINE BY TEST STRIP Negative mg/dL 02/08 Specimen Type: URINE Comment: Microscopic not indicated Ordering Provider: ANGELIQUE TOLEDO Report Released Date/Time: Feb 08, 2024 01:14 PM Reporting Lab: [address] [address] Performing Lab: [address] [address] [facility] URINALYS IS PROTEIN [MASS/VOLU ME] IN URINE BY TEST STRIP Negative mg/dL 02/08 Specimen Type: URINE Comment: Microscopic not indicated Ordering Provider: ANGELIQUE TOLEDO Report Released Date/Time: Feb 08, 2024 01:14 PM Reporting Lab: [address] [address] Performing Lab: [address] [address] [facility] URINALYS IS PH OF URINE BY TEST STRIP 6.5 4.5 - 8.0 02/08 Specimen Type: URINE Comment: Microscopic not indicated Ordering Provider: ANGELIQUE TOLEDO Report Released Date/Time: Feb 08, 2024 01:14 PM Reporting Lab: [address] [address] Performing Lab: [address] [address] [facility] URINALYS IS NITRITE [PRESENCE] IN URINE BY TEST STRIP Negative 02/08 Specimen Type: URINE Comment: Microscopic not indicated Ordering Provider: ANGELIQUE TOLEDO Report Released Date/Time: Feb 08, 2024 01:14 PM Reporting Lab: [address] [address] Performing Lab: [address] [address] [facility] URINALYS IS LEUKOCYTE ESTERASE [PRESENCE] IN URINE BY TEST STRIP Negative 02/08 Specimen Type: URINE Comment: Microscopic not indicated Ordering Provider: ANGELIQUE TOLEDO Report Released Date/Time: Feb 08, 2024 01:14 PM Reporting Lab: [address] [address] Performing Lab: [phone] [place] [address] URINALYS IS SPECIFIC GRAVITY OF URINE <1.005 1.005 - 1.030 02/08 L Specimen Type: URINE Comment: Microscopic not indicated Ordering Provider: ANGELIQUE TOLEDO Report Released Date/Time: Feb 08, 2024 01:14 PM Reporting Lab: [address] [address] Performing Lab: [address] [address] [facility] URINALYS IS GLUCOSE [MASS/VOLU ME] IN URINE BY TEST STRIP Negative mg/dL 02/08 Specimen Type: URINE Comment: Microscopic not indicated Ordering Provider: ANGELIQUE TOLEDO Report Released Date/Time: Feb 08, 2024 01:14 PM Reporting Lab: [address] [address] Performing Lab: [address] [address] [facility] 25-OH VITAMIN D 25-HYDROXY VITAMIN D3 [MASS/VOLU ME] IN SERUM OR PLASMA 59.9 ng/mL 20.0 - 50.0 08/23 /2024 H Specimen Type: SERUM Comment: The National [...] Feb 08, 2024 01:14 PM Reporting Lab: [address] [address] Performing Lab: [address] [address] [facility] CBC/PLT LEUKOCYTES [#/VOLUME] IN BLOOD BY AUTOMATED COUNT 7.4 10*3/uL 5.0 - 10.0 02/08 Specimen Type: BLOOD No comment entered. Ordering Provider: ANGELIQUE TOLEDO Report Released Date/Time: Feb 08, 2024 01:14 PM Reporting Lab: [address] [id number] Performing Lab: [id number] [place] [address] CBC/PLT ERYTHROCYT ES [#/VOLUME] IN BLOOD BY AUTOMATED COUNT 4.11 10*6/uL 4.6 - 6.2 02/08 L Specimen Type: BLOOD No comment entered. Ordering Provider: ANGELIQUE TOLEDO Report Released Date/Time: Feb 08, 2024 01:14 PM Reporting Lab: [address] [phone] Performing Lab: [address] [phone] [facility] CBC/PLT HEMOGLOBIN [MASS/VOLU ME] IN BLOOD 13.1 g/dL 14.0 - 18.0 02/08 L Specimen Type: BLOOD No comment entered. Ordering Provider: ANGELIQUE TOLEDO Report Released Date/Time: Feb 08, 2024 01:14 PM Reporting Lab: [address] [address] Performing Lab: [place] [id number] CBC/PLT HEMATOCRIT [VOLUME FRACTION] OF BLOOD BY AUTOMATED COUNT 41.1 42.0 - 52.0 02/08 L Specimen Type: BLOOD No comment entered. Ordering Provider: ANGELIQUE TOLEDO Report Released Date/Time: Feb 08, 2024 01:14 PM Reporting Lab: [place] [id number] Performing Lab: [address] CBC/PLT MCV [ENTITIC VOLUME] BY AUTOMATED COUNT 100.0 fL 80.0 - 94.0 02/08 H Specimen Type: BLOOD No comment entered. Ordering Provider: ANGELIQUE TOLEDO Report Released Date/Time: Feb 08, 2024 01:14 PM Reporting Lab: [place] [address] Performing Lab: [address] CBC/PLT MCH [ENTITIC MASS] BY AUTOMATED COUNT 31.9 pg 27.0 - 31.0 02/08 H Specimen Type: BLOOD No comment entered. Ordering Provider: ANGELIQUE TOLEDO Report Released Date/Time: Feb 08, 2024 01:14 PM Reporting Lab: [place] [phone] Performing Lab: [address] CBC/PLT MCHC [MASS/VOLU ME] BY AUTOMATED COUNT 31.9 g/dL 32.0 - 36.0 02/08 L Specimen Type: BLOOD No comment entered. Ordering Provider: ANGELIQUE TOLEDO Report Released Date/Time: Feb 08, 2024 01:14 PM Reporting Lab: [place] [id number] Performing Lab: [address] CBC/PLT PLATELETS [#/VOLUME] IN BLOOD 149 10*3/uL 150 - 450 02/08 L Specimen Type: BLOOD No comment entered. Ordering Provider: ANGELIQUE TOLEDO Report Released Date/Time: Feb 08, 2024 01:14 PM Reporting Lab: [place] [address] Performing Lab: [address] CBC/PLT PLATELET MEAN VOLUME [ENTITIC VOLUME] IN BLOOD 10.9 fL 9.0 - 13.1 02/08 Specimen Type: BLOOD No comment entered. Ordering Provider: ANGELIQUE TOLEDO Report Released Date/Time: Feb 08, 2024 01:14 PM Reporting Lab: [place] [address] Performing Lab: [address] CBC/PLT ERYTHROCYT E DISTRIBUTI ON WIDTH [ENTITIC VOLUME] BY AUTOMATED COUNT 13.7 11.0 - 16.0 02/08 Specimen Type: BLOOD No comment entered. Ordering Provider: ANGELIQUE TOLEDO Report Released Date/Time: Feb 08, 2024 01:14 PM Reporting Lab: [place] [address] Performing Lab: [address] CBC/PLT NUCLEATED ERYTHROCYT ES/100 ERYTHROCYT ES IN BLOOD 0.0 0.0 - 0.0 02/08 Specimen Type: BLOOD No comment entered. Ordering Provider: ANGELIQUE TOLEDO Report Released Date/Time: Feb 08, 2024 01:14 PM Reporting Lab: [place] [address] Performing Lab: [address] PTH INTACT (ORDAZ) PARATHYRIN .INTACT [MASS/VOLU ME] [...] PM Reporting Lab: EDD HAHN [facility] [address] [id number] Performing Lab: EDD HAHN [facility] [address] [phone] [facility] Vital Signs Combined list of inpatient and outpatient Vital Signs from Department of Defense and Veterans Affairs, ranging from 12 months to all on record, depending upon the facility. Vital Sign Value Date Comments Source SYSTOLIC BLOOD PRESSURE 132 01/13/2025 08:27:01 [facility] DIASTOLIC BLOOD PRESSURE 70 01/13/2025 08:27:01 [facility] PULSE OXIMETRY 100 % 01/13/2025 08:27:01 [facility] WEIGHT 174 01/13/2025 08:27:01 [facility] BMI 30 kg/m2 01/13/2025 08:27:01 [facility] PAIN 0 01/13/2025 08:27:01 [facility] HEIGHT 64 01/13/2025 08:27:01 [facility] TEMPERATURE 97.8 01/13/2025 08:27:01 [facility] PULSE 60 01/13/2025 08:27:01 [facility] RESPIRATION 12 01/13/2025 08:27:01 [facility] SYSTOLIC BLOOD PRESSURE 126 03/13/2024 09:13:12 [facility] DIASTOLIC BLOOD PRESSURE 69 03/13/2024 09:13:12 [facility] PULSE OXIMETRY 99 03/13/2024 09:13:12 [facility] WEIGHT 178 03/13/2024 09:13:12 [facility] BMI 31 kg/m2 03/13/2024 09:13:12 RUIZ HERRON [facility] PAIN 0 03/13/2024 09:13:12 RUIZ HERRON [facility] TEMPERATURE 97.2 03/13/2024 09:13:12 ZOEY MCCALL [facility] PULSE 59 03/13/2024 09:13:12 RUIZ HERRON [facility] RESPIRATION 16 03/13/2024 09:13:12 ZOEY MCCALL [facility] SYSTOLIC BLOOD PRESSURE 152 02/28/2024 09:46:57 VEL [facility] DIASTOLIC BLOOD PRESSURE 72 02/28/2024 09:46:57 [facility] SYSTOLIC BLOOD PRESSURE 153 02/09/2024 08:55:00 [facility] DIASTOLIC BLOOD PRESSURE 68 02/09/2024 08:55:00 [facility] PULSE OXIMETRY 99 02/09/2024 08:55:00 L BETTIE [facility] WEIGHT 168.0 02/09/2024 08:55:00 RUIZ HERRON [facility] BMI 29 kg/m2 02/09/2024 08:55:00 RUIZ HERRON [facility] PAIN 4 02/09/2024 08:55:00 RUIZ HERRON [facility] HEIGHT 64.0 02/09/2024 08:55:00 RUIZ HERRON [facility] TEMPERATURE 98.5 02/09/2024 08:55:00 ZOEY MCCALL [facility] PULSE 59 02/09/2024 08:55:00 RUIZ HERRON [facility] RESPIRATION 16 02/09/2024 08:55:00 [facility]OE[facility] MCCALL [facility] Encounters Combined list of: 1) Encounters from Department of Veterans Affairs facilities going backup to the last 18 months, not all VA inpatient encounters are included; 2) Encounters from the Department of Defense facilities going backup to 280 months. Location Location Details Encounter Type Encounter Number Reason For Visit Attending Provider ADM Date DC Date Status Disposition Source [facility] DENTAL BITEWING FOUR IMAGES [id number] Diagnos is: ICD-10- CM K03.6 Deposit s [accret ions] on teeth ST SONAL PAYAN 07/25 [place] [facility] [place] Outpatient Encounter [id number] Kenny MACHADO 07/27 [place] [facility] Outpatient Encounter [id number] Diagnos is: ICD-10- CM R19.7 Diarrhe a, unspeci sagar ROSA DIXON DARON 07/27 [place] Outpatient Encounter [id number] 08/01 [place] [facility] [place] Outpatient Encounter [id number] 08/30 [place] [facility] Outpatient Encounter [id number] 10/02 [place] Outpatient Encounter [id number] 10/02 [place] [facility] [place] Outpatient Encounter [id number] 10/17 [place] [facility] [place] OFFICE O/P EST MOD 30 MIN [id number] Diagnos is: ICD-10- CM I10 Essenti al (primar y) hyperte nsion JANIYA BURRELL 10/17 [place] [facility] [place] CASE MGMT-ORAL HEALTH LIT [id number] Diagnos is: ICD-10- CM K02.51 Dental caries on pit and fissure surface limited to enamel LINA MARTINEZ 10/22 [place] [facility] [place] DENTAL BITEWING SINGLE IMAGE [id number] Diagnos is: ICD-10- CM K02.52 Dental caries on pit and fissure surfc penetra t into dentin HARMONY MARTINEZ P 11/06 [place] [facility] [place] CROWN PORCELAIN/ CERAMIC SUBS [id number] Diagnos is: ICD-10- CM K02.52 Dental caries on pit and fissure surfc penetra t into dentin GALECIO VERALARRY L 12/24 [place] [facility] OFFICE O/P EST MOD 30 MIN [id number] Diagnos is: ICD-10- CM N18.31 Chronic kidney disease , stage 3a Mina TOLEDO 02/08 [place] Outpatient Encounter [id number] 02/13 [place] Outpatient Encounter [id number] 02/22 [place] PERIODIC [place] EST [id number] Diagnos is: ICD-10- CM K02.51 Dental caries on pit and fissure surface limited to enamel LINA MARTINEZ L 02/27 [place] [facility] Outpatient Encounter [id number] 03/06 [place] Outpatient Encounter [id number] 03/07 [place] [facility] Outpatient Encounter [id number] 03/12 [place] OFFICE O/P EST MOD 30 MIN [id number] Diagnos is: ICD-10- CM I10 Essenti al (primar y) hyperte ami VINCENT LAY 03/13 [place] [facility] [place] Outpatient Encounter [id number] 03/15 [place] [facility] [place] CASE MGMT-ORAL HEALTH LIT [id number] Diagnos is: ICD-10- CM K02.51 Dental caries on pit and fissure surface limited to enamel LINA MARTINEZ L 08/27 [place] [facility] Outpatient Encounter [id number] 08/27 [place] LIMITED OCCLUSAL ADJUSTMENT [id number] Diagnos is: ICD-10- CM K02.52 Dental caries on pit and fissure surfc penetra t into dentin HARMONY MARTINEZ P 09/10 [place] [facility] [place] COMPRE OPH EXAM EST PT 1/> [id number] Diagnos is: ICD-10- CM E11.9 Type 2 diabete s mellitu s without complic ations JENIFER GODOY SYD N 10/08 [place] [facility] Outpatient Encounter [id number] 01/10 [place] OFFICE O/P EST MOD 30 MIN [id number] Diagnos is: ICD-10- CM I10 Essenti al (primar y) hyperte ami VINCENT LAY 01/13 [place] [facility] [place] PH1 ASSMT&MGMT NQHP 5-10 [id number] Diagnos is: ICD-10- CM 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 Social History Type Response Date Comment Source Tobacco smoking status [facility]-TO[facility]AC[place] NEVER USED OTHER TYPE 01/13/2025 [facility] History of tobacco use [place]-TO[place] USE FORMER CIGARETTES 01/13/2025 [facility] History of tobacco use [place]-TO[place]ACCO USER EVERY DAY 02/09/2024 [facility] History of tobacco use [place]-TO[place]AC[place] FORMER USER 12/07/2022 [facility] History of tobacco use [place]-TO[place]AC[place] FORMER USER 02/10/2021 [facility] History of tobacco use [place] FORMER USER 02/17/2020 [facility]2019 [facility] History of tobacco use V9 QUIT TOBACCO >7 YEARS AGO 04/17/2017 [facility] History of tobacco use V9 QUIT TOBACCO >7 YEARS AGO 10/12/2015 [facility] History of tobacco use V9 QUIT TOBACCO IN THE LAST 12 MONTHS 09/12/2014 [facility] History of tobacco use V9 QUIT TOBACCO >12 MO and <7 YRS AGO 06/21/2013 [facility] History of tobacco use V9 CURRENT TOBACCO USER 02/02/2012 [facility] History of tobacco use V9 CURRENT TOBACCO USER 02/01/2012 [facility] History of tobacco use V9 QUIT TOBACCO >7 YEARS AGO 01/18/2011 [facility] History of tobacco use V9 LIFETIME NON-USER OF TOBACCO 05/09/2006 [facility] History of tobacco use HF V9 CURRENT NON-SMOKER 11/07/2005 5+ yrs ago [facility] History of tobacco use HF V9 CURRENT NON-SMOKER 03/12/2004 quit 4-5yrs ago [facility] Plan of Care List of future care activities from Department of [facility] facilities. Additional future care activities may be listed in the Assessment and Plan section. Date/Time Care Activity Care Activity Detail Facili ty 02/27/2025 AMBULATORY - NONE AMBULATORY - NONE [facility]
--- OUTSIDE RECORDS SUMMARY | 2025-01-20 10:43 | XMS_ITS | Clinical Summary ---
Author Organization [facility] Address [address] [place] [phone] Care Team Providers Care Fitness And Wellness Manager Name Role Phone Unavailable Primary Care Provider Unavailabl e Social History Tobacco Use Types Packs/Day Years Used Date Smoking Tobacco: Never Assessed Abuse Screen Answer Date Recorded Unsafe at Home or Work/School Not on file Feels Threatened by Someone? Not on file 02/2023 Does Anyone Keep You from Co ntacting Others or Doint Things Outside the Home? Not on file 03/27/2023 Physical Sign of Abuse Present Not on file 1 Housing Stability Answer Date Recorded Current Living Arrangements Not on file 02/2023 Potentially Unsafe Housing Conditions Not on jacy e 03/27/2023 Family and Community Support Answer Bladimir e Recorded Help with Day-to-Day Activities Not on file 03/27/2023 Lonely or Isolated Not on file 03/27/2023 Employment Answer Date Recorded Do you want help finding or keeping work or a marco a b? Not on file 03/27/2023 Disabilities Answer Date Recorded Concentrating, Remembering, or Making Decisions Difficulty Not on file 03/27/2023 Doing Errands Independently Difficulty Not on fi le 03/27/2023 Education Answer Date Recorded Help with school or training? Not on file Preferred Language Not on file 03/27/2023 Sex and Gender Information Value Date Recorded Sex Assigned at Not on file Legal Sex Male 11:42 AM EDT Gender Identity Not on file Sexual Orientation Not on file Plan of Treatment Health Maintenance Due Date Last Done Comments ANNUAL PHYSICAL 1945 HEPATITIS C SCREENING 1945 TDAP/TD VACCINES (1 - Tdap) 09/29/1966 Pneumococcal Vaccine 50+ (1 of 1 - PCV) 09/29/1997 ZOSTER VACCINE (1 of 2) 09/29/1997 RSV Vaccine - Adults (1 - 1-dose 75+ series) 3 COVID-19 Vaccine (2023- season) 2024 INFLUENZA VACCINE 03/19/2025
--- NOTE | 2025-01-20 10:45 | XR_ITS ---
FINAL REPORT CLINICAL HISTORY: right upper arm injury with pain and limited rom COMPARISON: None FINDINGS: Two views of the right humerus were obtained. There is no acute fracture or dislocation. The joint spaces are well preserved. There is no acute soft tissue abnormality. IMPRESSION: No acute abnormality identified. Reviewed, Interpreted and Dictated by Demetrio Miner MD Transcribed by Breonna Osorio Authenticated and . [facility]
--- NOTE | 2025-01-20 10:45 | XR_ITS ---
FINAL REPORT CLINICAL HISTORY: right shoulder injury with pain and limited rom COMPARISON: None FINDINGS: RIGHT SHOULDER Three views demonstrate no acute fracture or dislocation. There are mild hypertrophic changes of the acromioclavicular joint. The soft tissues are unremarkable. IMPRESSION: Degenerative changes without acute process. Reviewed, Interpreted and Dictated by Demetrio Miner MD Transcribed by Breonna Osorio Authenticated and [facility]
== END 2025-01-20 23:59 | disposition home or self-care (01) ==
LOC: RAD 10:41
PROVIDERS: PCP Nurse Practitioner Family; Visit Provider Nurse Practitioner Family
DX: S49.91XA Unspecified injury of right shoulder and upper arm, initial encounter (principal); M79.621 Pain in right upper arm; M25.511 Pain in right shoulder
CPT/HCPCS: 73030; 73060

== ENCOUNTER 2025-02-19 08:16 | Outpatient (CLI) | payer MEDICARE, SELFPAY ==
--- OUTSIDE RECORDS SUMMARY | 2025-01-20 04:44 | XMS_ITS | Continuity of Care Document ---
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 It does not include entries that were removed or entered in error. Problem Status Onset Date Problem Type Date of Resolution Comments Source Allergic rhinitis * (ICD-9-CM 477.9) [place] [facility] Anxiety Active Condition [place] [facility] Anxiety Disorder NOS * (ICD-9-CM 300.00) Active Condition [place] [facility] Benign essential hypertension [facility] Benign hypertension Active Condition [place] [facility] Carpal Tunnel Syndrome * (ICD-9-CM 354.0) [facility] Chronic kidney disease stage 3A Active Condition [place] [facility] Coronary arteriosclerosis Active [place] [facility] Coronary arteriosclerosis Active Condition [place] [facility] Depressive Disorder NOS * (ICD-9-CM 311.) Active Condition [place] [facility] Diabetes mellitus (SNOMED CT [id number]) Active Condition [place] [facility] Diabetes Mellitus Type II or unspecified * (ICD-9-CM 250.00) [place] [facility] Exposure to potentially hazardous substance Active Condition [place] [facility] Gastroesophageal reflux disease [facility] Gastroesophageal reflux disease Active Condition [place] [facility] History of polyp of colon Active Condition [place] [facility] HTN * (ICD-9-CM 401.9) [facility] Hyperlipidemia [place] [facility] Hyperlipidemia Active [place] [facility] Mild Nonprolf Db Retnoph [facility] Mood [facility] Active [facility] [place] [facility] PTSD Active Condition [facility] Serrated polyp of colon Active Condition November 06, 2015 Entered By: JOEL PRAJAPATI Comment: repeat c-scope 2016 Entered By: MARY PAPPAS Comment: no polyps May 2016 -- repeat in 3 years (05/2019). 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) Inactive Condition 01/18/2011 [facility] Hypertensive disorder Inactive Condition 01/18/2011 [facility] Diagnosis: ICD-10-CM Z71.89 Other specified counseling Active Diagnosis [place] [facility] Diagnosis: ICD-10-CM I10 Essential (primary) hypertension Active Diagnosis [facility] Diagnosis: ICD-10-CM E11.9 Type 2 diabetes mellitus without complications Active Diagnosis [facility] Diagnosis: ICD-10-CM K02.52 Dental caries on pit and fissure surfc penetrat into dentin Active Diagnosis [facility] Diagnosis: ICD-10-CM K02.51 Dental caries on pit and fissure surface limited to enamel Active Diagnosis [facility] Diagnosis: ICD-10-CM N18.31 Chronic kidney disease, stage 3a Active Diagnosis [facility] Diagnosis: ICD-10-CM R19.7 Diarrhea, unspecified Active Diagnosis [facility] Diagnosis: ICD-10-CM K03.6 Deposits [accretions] on teeth Active Diagnosis [facility] Medications Combined list of outpatient medications from Department of Defense and [facility] facilities.Medications provided include 1) outpatient medications from the last 15 months, and 2) patient-reported medications. Medication Details Route Status Patient Instructions Prescription Expires Prescription Number Last Dispense Date Ordering Provider Order Date Order Qty Source IRBESARTAN 150MG TAB TAKE ONE-HALF TABLET BY MOUTH DAILY ORAL ACTIVE JANIYA HALL Saw 2023 [place] [facility] NO KNOWN NON-VA MEDS NOT APPLIC ABLE ACTIVE Saw YEPEZ 2006 [place] [facility] ROSUVASTATI N [place] 40MG TAB TAKE ONE-HALF TABLET BY MOUTH AT BEDTIME FOR CHOLESTE ROL (REPLACE S ATORVAST ATIN) ORAL ACTIVE 01/14/2026 [id number] 5 VINCENT LAY 2024 45 [place] [facility] ROSUVASTATI N CA 40MG TAB TAKE ONE-HALF TABLET BY MOUTH AT BEDTIME FOR CHOLESTE ROL (REPLACE S ATORVAST ATIN) ORAL DISCONT INUED 03/14/2025 [id number] 5 VINCENT LAY 2023 45 [place] [facility] SERTRALINE HCL 50MG TAB TAKE ONE-HALF TABLET BY MOUTH DAILY FOR ANXIETY. ORAL ACTIVE 01/14/2026 [id number] 5 VINCENT LAY 2024 45 [place] [facility] SERTRALINE HCL 50MG TAB TAKE ONE-HALF TABLET BY MOUTH DAILY FOR ANXIETY. ORAL DISCONT INUED 03/14/2025 [id number] 4 VINCENT LAY 2023 45 [place] [facility] Allergies, Adverse Reactions, Alerts Combined list of allergies from Department of Defense and [facility] facilities. It does not include entries that were removed or entered in error. Substance Category Reaction Severity Reaction type Status Date Reported Comments Source AMOXICILLIN Propensity to adverse reactions to drug (finding) Urticaria , Eruption, Dyspnea active 4 [facility] LIPITOR Propensity to adverse reactions to drug (finding) Muscle pain active 3 [facility] LISINOPRIL Propensity to adverse reactions to drug (finding) active 7 [facility] SIMVASTATIN Propensity to adverse reactions to drug (finding) active 8 [facility] Immunizations Combined list of available immunizations from the Department of Defense and Veterans Affairs facilities. 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 Status Comments Source PNEUMOCOCCAL CONJUGATE PCV20, POLYSACCHARID E [id number] CONJUGATE, ADJUVANT, PF 2021 216 complet ed [place] [facility] (PFIZER), MRNA, LNP-S, PF, 30 MCG/0.3 ML DOSE 2 2020 208 complet ed PFR; [id number]; 1 [place] [facility] COVID-19 (PFIZER), MRNA, LNP-S, PF, 30 MCG/0.3 ML DOSE 1 2020 208 complet ed PFR; [id number]; 1 [place] [facility] PNEUMOCOCCAL POLYSACCHARID E [id number] 2018 33 complet ed [place] [facility] ZOSTER RECOMBINANT 2 2017 187 complet ed [place] [facility] REC[facility] 1 2017 187 complet ed [place] [facility] TDAP 2016 115 complet ed [place] [facility] INFLUENZA A & B (HISTORICAL) 2015 88 complet ed [place] [facility] FLU,3 YRS (HISTORICAL) 2014 88 complet ed [place] [facility] [id number] (HISTORICAL) 2014 133 complet ed [place] [facility] INFLUENZA A & B (HISTORICAL) 2014 88 complet ed UTD [place] AMIS/LD ZOST[facility] LIVE 2013 121 complet ed [place] [facility] FLU,3 YRS (HISTORICAL) 2010 88 complet ed [place] [facility] FLU,3 YRS (HISTORICAL) 2008 88 complet ed [place] [facility] INFLUENZA A & B (HISTORICAL) 2007 88 complet ed [place] [facility] FLU,3 YRS (HISTORICAL) 2005 88 complet ed [place] [facility] INFLUENZA A & B (HISTORICAL) 2005 88 complet ed [place] [facility] TETANUS TOXOID, UNSPECIFIED FORMULATION 2005 112 complet ed [place] [facility] INFLUENZA A & B (HISTORICAL) 2004 88 complet ed pt not sure about last yr [place] [facility] PNEUMOCOCCAL, UNSPECIFIED FORMULATION 2003 MELINA DUQUE 109 complet ed [place] [facility] TD (ADULT), 2 LF TETANUS TOXOID, PRESERVATIVE FREE, ADSORBED 1 1996 09 complet ed HISTORICA L INFORMATI ON - FROM OTHER REGISTRY, [place] [facility] TD(ADULT) UNSPECIFIED FORMULATION 1996 139 complet ed [place] [facility] Results Combined list of recent chemistry, hematology and other laboratory results from Department of Defense and [facility], ranging from 15 months to all on record, depending upon the facility. Order Name Results Value Reference Range Date Interpretation Specimen Comments Source GLYCOHEM OGLOBIN HEMOGLOBIN A1C/HEMOGL OBIN.TOTAL IN BLOOD BY HPLC 5.5 4.4 - 5.6 01/13 Specimen Type: BLOOD Comment: Prediabetes : 5.7%-6.4% Diabetes: >= 6.5% [facility] guidelines for A1c interpretat ion: Glycemic control targets are based on Shared Decision Making between clinicians and patients. Criteria used to establish an A1c target recommendat ion can be found at https://www .va.gov/ashli lityandpati entsafety/ and include the use of result accuracy and precision(C V) of the A1c tests clinicians utilize at their own sites of practice. Values obtained from A1C measurement s can vary. For typical A1C assays, a reported value of 7.0 could actually be between 6.72 and 7.28 if measured by a reference method. A reported value of 9.0 could actually be between 8.73 and 9.27. Ref: https://ngs p.org/CAPda ta.asp. The in-house [employer] D-100 analyzer has a historical CV <= 2%. Contact the laboratory for further performance characteris tics of this assay. Ordering Provider: Roslyn LAY Report Released Date/Time: Jan 13, 2025 08:27 AM Reporting Lab: [facility] [address] [facility] [phone] Performing Lab: [facility] [address] [address] [facility] TSH THYROTROPI N [UNITS/VOL UME] IN SERUM OR PLASMA 0.7791 m[IU]/mL 0.3500 - 4.9400 01/13 Specimen Type: PLASMA Comment: Estimated Glomerular Filtration Rate (eGFR) calculated using the 2020 Chronic Kidney Disease-Epi demiology (CKD-EPI) Collaborati on creatinine equation; units of measure are mL/min/1.73 m2. Results are only valid for adults (>=18 years) whose serum creatinine is in a steady state. eGFR calculation s are not valid for patients with acute kidney injury and for patients on dialysis. Creatinine- based estimates of kidney function may also be inaccurate in patients with reduced creatinine generation due to decreased muscle mass (e.g., malnutritio n, severe hypoalbumin emia, sarcopenia, chronic neuromuscul ar disease, amputations , severe heart failure or liver disease) and in patients with increased creatinine generation due to increased muscle mass (e.g., muscle builders, anabolic steroids) or increased dietary intake. As drug clearance is proportiona l to total GFR and not GFR indexed to body surface area (BSA), in individuals with a BSA substantial ly different than 1.73 m2, drug dosing should be based on the reported eGFR value de-indexed from BSA by multiplying by the individual' s BSA and dividing by 1.73. CKD is diagnosed based on abnormaliti es of kidney structure or function, present for >3 months, with implication s for health and disease. CKD is classified and staged based on cause, eGFR and albuminuria (quantified as urine albumin to creatinine ratio). An eGFR >60 mL/min/1.73 m2 in the absence of increased urine albumin excretion or structural abnormaliti es does not represent CKD. eGFR CKD Interpretat ion (mL/min/1.7 3 m2) stage >=90 G1 Normal 60-89 G2 Mild decrease 45-59 G3A Mild to moderate decrease 30-44 G3B Moderate to severe decrease 15-29 G4 Severe decrease <15 G5 Kidney failure Ordering Provider: Roslyn LAY Report Released Date/Time: Jan 13, 2025 08:27 AM Reporting Lab: [place] [phone] Performing Lab: [place] [id number] [place] [address] MICROALB UMIN/CRE AT RATIO CREATININE [MASS/VOLU ME] IN URINE 310.5 mg/dL 01/13 Specimen Type: URINE No comment entered. Ordering Provider: Roslyn LAY Report Released Date/Time: Jan 13, 2025 08:27 AM Reporting Lab: [place] [phone] Performing Lab: [place] [id number] [place] [address] MICROALB UMIN/CRE AT RATIO MICROALBUM IN [MASS/VOLU ME] IN URINE 24.9 mg/L 0.0 - 30.0 01/13 Specimen Type: URINE No comment entered. Ordering Provider: Roslyn LAY Report Released Date/Time: Jan 13, 2025 08:27 AM Reporting Lab: [place] [phone] Performing Lab: [place] [id number] [place] [address] MICROALB UMIN/CRE AT RATIO MICROALBUM IN/CREATIN INE [MASS RATIO] IN URINE 8.0 ug/mg{cr eat} 01/13 Specimen Type: URINE No comment entered. Ordering Provider: Roslyn LAY Report Released Date/Time: Jan 13, 2025 08:27 AM Reporting Lab: [place] [phone] Performing Lab: [place] [id number] [place] [address] LIPID PROFILE CHOLESTERO L [MASS/VOLU ME] IN SERUM OR PLASMA 136 mg/dL 0 - 199 01/13 Specimen Type: PLASMA Comment: Estimated Glomerular Filtration Rate (eGFR) calculated using the 2020 Chronic Kidney Disease-Epi demiology (CKD-EPI) Collaborati on creatinine equation; units of measure are mL/min/1.73 m2. Results are only valid for adults (>=18 years) whose serum creatinine is in a steady state. eGFR calculation s are not valid for patients with acute kidney injury and for patients on dialysis. Creatinine- based estimates of kidney function may also be inaccurate in patients with reduced creatinine generation due to decreased muscle mass (e.g., malnutritio n, severe hypoalbumin emia, sarcopenia, chronic neuromuscul ar disease, amputations , severe heart failure or liver disease) and in patients with increased creatinine generation due to increased muscle mass (e.g., muscle builders, anabolic steroids) or increased dietary intake. As drug clearance is proportiona l to total GFR and not GFR indexed to body surface area (BSA), in individuals with a BSA substantial ly different than 1.73 m2, drug dosing should be based on the reported eGFR value de-indexed from BSA by multiplying by the individual' s BSA and dividing by 1.73. CKD is diagnosed based on abnormaliti es of kidney structure or function, present for >3 months, with implication s for health and disease. CKD is classified and staged based on cause, eGFR and albuminuria (quantified as urine albumin to creatinine ratio). An eGFR >60 mL/min/1.73 m2 in the absence of increased urine albumin excretion or structural abnormaliti es does not represent CKD. eGFR CKD Interpretat ion (mL/min/1.7 3 m2) stage >=90 G1 Normal 60-89 G2 Mild decrease 45-59 G3A Mild to moderate decrease 30-44 G3B Moderate to severe decrease 15-29 G4 Severe decrease <15 G5 Kidney failure Ordering Provider: Roslyn LAY Report Released Date/Time: Jan 13, 2025 08:27 AM Reporting Lab: [facility] [address] [facility] [phone] Performing Lab: [facility] [address] [facility] [phone] [facility] LIPID PROFILE TRIGLYCERI DE [MASS/VOLU ME] IN SERUM OR PLASMA 103 mg/dL 0 - 149 01/13 Specimen Type: PLASMA Comment: Estimated Glomerular Filtration Rate (eGFR) calculated using the 2020 Chronic Kidney Disease-Epi demiology (CKD-EPI) Collaborati on creatinine equation; units of measure are mL/min/1.73 m2. Results are only valid for adults (>=18 years) whose serum creatinine is in a steady state. eGFR calculation s are not valid for patients with acute kidney injury and for patients on dialysis. Creatinine- based estimates of kidney function may also be inaccurate in patients with reduced creatinine generation due to decreased muscle mass (e.g., malnutritio n, severe hypoalbumin emia, sarcopenia, chronic neuromuscul ar disease, amputations , severe heart failure or liver disease) and in patients with increased creatinine generation due to increased muscle mass (e.g., muscle builders, anabolic steroids) or increased dietary intake. As drug clearance is proportiona l to total GFR and not GFR indexed to body surface area (BSA), in individuals with a BSA substantial ly different than 1.73 m2, drug dosing should be based on the reported eGFR value de-indexed from BSA by multiplying by the individual' s BSA and dividing by 1.73. CKD is diagnosed based on abnormaliti es of kidney structure or function, present for >3 months, with implication s for health and disease. CKD is classified and staged based on cause, eGFR and albuminuria (quantified as urine albumin to creatinine ratio). An eGFR >60 mL/min/1.73 m2 in the absence of increased urine albumin excretion or structural abnormaliti es does not represent CKD. eGFR CKD Interpretat ion (mL/min/1.7 3 m2) stage >=90 G1 Normal 60-89 G2 Mild decrease 45-59 G3A Mild to moderate decrease 30-44 G3B Moderate to severe decrease 15-29 G4 Severe decrease <15 G5 Kidney failure Ordering Provider: Roslyn LAY Report Released Date/Time: Jan 13, 2025 08:27 AM Reporting Lab: [facility] [address] [facility] [phone] Performing Lab: [facility] [address] [address] [facility] LIPID PROFILE CHOLESTERO L IN HDL [MASS/VOLU ME] IN SERUM OR PLASMA 43 mg/dL 40 - 69 01/13 Specimen Type: PLASMA Comment: Estimated Glomerular Filtration Rate (eGFR) calculated using the 2020 Chronic Kidney Disease-Epi demiology (CKD-EPI) Collaborati on creatinine equation; units of measure are mL/min/1.73 m2. Results are only valid for adults (>=18 years) whose serum creatinine is in a steady state. eGFR calculation s are not valid for patients with acute kidney injury and for patients on dialysis. Creatinine- based estimates of kidney function may also be inaccurate in patients with reduced creatinine generation due to decreased muscle mass (e.g., malnutritio n, severe hypoalbumin emia, sarcopenia, chronic neuromuscul ar disease, amputations , severe heart failure or liver disease) and in patients with increased creatinine generation due to increased muscle mass (e.g., muscle builders, anabolic steroids) or increased dietary intake. As drug clearance is proportiona l to total GFR and not GFR indexed to body surface area (BSA), in individuals with a BSA substantial ly different than 1.73 m2, drug dosing should be based on the reported eGFR value de-indexed from BSA by multiplying by the individual' s BSA and dividing by 1.73. CKD is diagnosed based on abnormaliti es of kidney structure or function, present for >3 months, with implication s for health and disease. CKD is classified and staged based on cause, eGFR and albuminuria (quantified as urine albumin to creatinine ratio). An eGFR >60 mL/min/1.73 m2 in the absence of increased urine albumin excretion or structural abnormaliti es does not represent CKD. eGFR CKD Interpretat ion (mL/min/1.7 3 m2) stage >=90 G1 Normal 60-89 G2 Mild decrease 45-59 G3A Mild to moderate decrease 30-44 G3B Moderate to severe decrease 15-29 G4 Severe decrease <15 G5 Kidney failure Ordering Provider: Roslyn LAY Report Released Date/Time: Jan 13, 2025 08:27 AM Reporting Lab: [facility] [address] [address] Performing Lab: [facility] [address] [address] [facility] LIPID PROFILE CHOLESTERO L IN LDL [MASS/VOLU ME] IN SERUM OR PLASMA BY DIRECT ASSAY 75 mg/dL 0 - 100 01/13 Specimen Type: PLASMA Comment: Estimated Glomerular Filtration Rate (eGFR) calculated using the 2020 Chronic Kidney Disease-Epi demiology (CKD-EPI) Collaborati on creatinine equation; units of measure are mL/min/1.73 m2. Results are only valid for adults (>=18 years) whose serum creatinine is in a steady state. eGFR calculation s are not valid for patients with acute kidney injury and for patients on dialysis. Creatinine- based estimates of kidney function may also be inaccurate in patients with reduced creatinine generation due to decreased muscle mass (e.g., malnutritio n, severe hypoalbumin emia, sarcopenia, chronic neuromuscul ar disease, amputations , severe heart failure or liver disease) and in patients with increased creatinine generation due to increased muscle mass (e.g., muscle builders, anabolic steroids) or increased dietary intake. As drug clearance is proportiona l to total GFR and not GFR indexed to body surface area (BSA), in individuals with a BSA substantial ly different than 1.73 m2, drug dosing should be based on the reported eGFR value de-indexed from BSA by multiplying by the individual' s BSA and dividing by 1.73. CKD is diagnosed based on abnormaliti es of kidney structure or function, present for >3 months, with implication s for health and disease. CKD is classified and staged based on cause, eGFR and albuminuria (quantified as urine albumin to creatinine ratio). An eGFR >60 mL/min/1.73 m2 in the absence of increased urine albumin excretion or structural abnormaliti es does not represent CKD. eGFR CKD Interpretat ion (mL/min/1.7 3 m2) stage >=90 G1 Normal 60-89 G2 Mild decrease 45-59 G3A Mild to moderate decrease 30-44 G3B Moderate to severe decrease 15-29 G4 Severe decrease <15 G5 Kidney failure Ordering Provider: Roslyn LAY Report Released Date/Time: Jan 13, 2025 08:27 AM Reporting Lab: [place] [phone] Performing Lab: [place] [phone] [place] [address] CBC/PLT LEUKOCYTES [#/VOLUME] IN BLOOD BY AUTOMATED COUNT 11.8 10*3/uL 5.0 - 10.0 01/13 H Specimen Type: BLOOD No comment entered. Ordering Provider: Roslyn LAY Report Released Date/Time: Jan 13, 2025 08:27 AM Reporting Lab: [place] [phone] Performing Lab: [place] [phone] [place] [address] CBC/PLT ERYTHROCYT ES [#/VOLUME] IN BLOOD BY AUTOMATED COUNT 4.27 10*6/uL 4.6 - 6.2 01/13 L Specimen Type: BLOOD No comment entered. Ordering Provider: Roslyn LAY Report Released Date/Time: Jan 13, 2025 08:27 AM Reporting Lab: [place] [phone] Performing Lab: [place] [phone] [facility] CBC/PLT HEMOGLOBIN [MASS/VOLU ME] IN BLOOD 13.7 g/dL 14.0 - 18.0 01/13 L Specimen Type: BLOOD No comment entered. Ordering Provider: Roslyn LAY Report Released Date/Time: Jan 13, 2025 08:27 AM Reporting Lab: [address] [phone] Performing Lab: [address] [address] [facility] CBC/PLT HEMATOCRIT [VOLUME FRACTION] OF BLOOD BY AUTOMATED COUNT 42.2 42.0 - 52.0 01/13 Specimen Type: BLOOD No comment entered. Ordering Provider: Roslyn LAY Report Released Date/Time: Jan 13, 2025 08:27 AM Reporting Lab: [place] [phone] Performing Lab: [place] [phone] [facility] CBC/PLT MCV [ENTITIC VOLUME] BY AUTOMATED COUNT 98.8 fL 80.0 - 94.0 01/13 H Specimen Type: BLOOD No comment entered. Ordering Provider: Roslyn LAY Report Released Date/Time: Jan 13, 2025 08:27 AM Reporting Lab: [place] [phone] Performing Lab: [place] [phone] [facility] CBC/PLT MCH [ENTITIC MASS] BY AUTOMATED COUNT 32.1 pg 27.0 - 31.0 01/13 H Specimen Type: BLOOD No comment entered. Ordering Provider: Roslyn LAY Report Released Date/Time: Jan 13, 2025 08:27 AM Reporting Lab: [place] [phone] Performing Lab: [place] [place] [id number] [facility] CBC/PLT MCHC [MASS/VOLU ME] BY AUTOMATED COUNT 32.5 g/dL 32.0 - 36.0 01/13 Specimen Type: BLOOD No comment entered. Ordering Provider: Roslyn LAY Report Released Date/Time: Jan 13, 2025 08:27 AM Reporting Lab: [address] [phone] Performing Lab: [address] [address] [facility] CBC/PLT PLATELETS [#/VOLUME] IN BLOOD 192 10*3/uL 150 - 450 01/13 Specimen Type: BLOOD No comment entered. Ordering Provider: Roslyn LAY Report Released Date/Time: Jan 13, 2025 08:27 AM Reporting Lab: [place] [address] Performing Lab: [address] CBC/PLT PLATELET MEAN VOLUME [ENTITIC VOLUME] IN BLOOD 10.9 fL 9.0 - 13.1 01/13 Specimen Type: BLOOD No comment entered. Ordering Provider: Roslyn LAY Report Released Date/Time: Jan 13, 2025 08:27 AM Reporting Lab: [place] [address] Performing Lab: [address] CBC/PLT ERYTHROCYT E DISTRIBUTI ON WIDTH [ENTITIC VOLUME] BY AUTOMATED COUNT 13.4 11.0 - 16.0 01/13 Specimen Type: BLOOD No comment entered. Ordering Provider: Roslyn LAY Report Released Date/Time: Jan 13, 2025 08:27 AM Reporting Lab: [place] [address] Performing Lab: [address] CBC/PLT NUCLEATED ERYTHROCYT ES/100 ERYTHROCYT ES IN BLOOD 0.0 0.0 - 0.0 01/13 Specimen Type: BLOOD No comment entered. Ordering Provider: Roslyn LAY Report Released Date/Time: Jan 13, 2025 08:27 AM Reporting Lab: [place] [address] Performing Lab: [address] PANEL 5 CREATININE [MASS/VOLU ME] IN SERUM OR PLASMA 1.42 mg/dL 0.72 - 1.25 01/13 H Specimen Type: PLASMA Comment: Estimated Glomerular Filtration Rate (eGFR) calculated using the 2020 Chronic Kidney Disease-Epi demiology (CKD-EPI) Collaborati on creatinine equation; units of measure are mL/min/1.73 m2. Results are only valid for adults (>=18 years) whose serum creatinine is in a steady state. eGFR calculation s are not valid for patients with acute kidney injury and for patients on dialysis. Creatinine- based estimates of kidney function may also be inaccurate in patients with reduced creatinine generation due to decreased muscle mass (e.g., malnutritio n, severe hypoalbumin emia, sarcopenia, chronic neuromuscul ar disease, amputations , severe heart failure or liver disease) and in patients with increased creatinine generation due to increased muscle mass (e.g., muscle builders, anabolic steroids) or increased dietary intake. As drug clearance is proportiona l to total GFR and not GFR indexed to body surface area (BSA), in individuals with a BSA substantial ly different than 1.73 m2, drug dosing should be based on the reported eGFR value de-indexed from BSA by multiplying by the individual' s BSA and dividing by 1.73. CKD is diagnosed based on abnormaliti es of kidney structure or function, present for >3 months, with implication s for health and disease. CKD is classified and staged based on cause, eGFR and albuminuria (quantified as urine albumin to creatinine ratio). An eGFR >60 mL/min/1.73 m2 in the absence of increased urine albumin excretion or structural abnormaliti es does not represent CKD. eGFR CKD Interpretat ion (mL/min/1.7 3 m2) stage >=90 G1 Normal 60-89 G2 Mild decrease 45-59 G3A Mild to moderate decrease 30-44 G3B Moderate to severe decrease 15-29 G4 Severe decrease <15 G5 Kidney failure Ordering Provider: Roslyn LAY Report Released Date/Time: Jan 13, 2025 08:27 AM Reporting Lab: [facility] [address] [phone] Performing Lab: [facility] [address] [phone] [facility] PANEL 5 UREA NITROGEN [MASS/VOLU ME] IN SERUM OR PLASMA 26 mg/dL 9 01/13 H Specimen Type: PLASMA Comment: Estimated Glomerular Filtration Rate (eGFR) calculated using the 2020 Chronic Kidney Disease-Epi demiology (CKD-EPI) Collaborati on creatinine equation; units of measure are mL/min/1.73 m2. Results are only valid for adults (>=18 years) whose serum creatinine is in a steady state. eGFR calculation s are not valid for patients with acute kidney injury and for patients on dialysis. Creatinine- based estimates of kidney function may also be inaccurate in patients with reduced creatinine generation due to decreased muscle mass (e.g., malnutritio n, severe hypoalbumin emia, sarcopenia, chronic neuromuscul ar disease, amputations , severe heart failure or liver disease) and in patients with increased creatinine generation due to increased muscle mass (e.g., muscle builders, anabolic steroids) or increased dietary intake. As drug clearance is proportiona l to total GFR and not GFR indexed to body surface area (BSA), in individuals with a BSA substantial ly different than 1.73 m2, drug dosing should be based on the reported eGFR value de-indexed from BSA by multiplying by the individual' s BSA and dividing by 1.73. CKD is diagnosed based on abnormaliti es of kidney structure or function, present for >3 months, with implication s for health and disease. CKD is classified and staged based on cause, eGFR and albuminuria (quantified as urine albumin to creatinine ratio). An eGFR >60 mL/min/1.73 m2 in the absence of increased urine albumin excretion or structural abnormaliti es does not represent CKD. eGFR CKD Interpretat ion (mL/min/1.7 3 m2) stage >=90 G1 Normal 60-89 G2 Mild decrease 45-59 G3A Mild to moderate decrease 30-44 G3B Moderate to severe decrease 15-29 G4 Severe decrease <15 G5 Kidney failure Ordering Provider: Roslyn LAY Report Released Date/Time: Jan 13, 2025 08:27 AM Reporting Lab: [facility] [address] [phone] Performing Lab: [facility] [address] [phone] [facility] PANEL 5 GLUCOSE [MASS/VOLU ME] IN SERUM OR PLASMA 109 mg/dL 74 - 100 01/13 H Specimen Type: PLASMA Comment: Estimated Glomerular Filtration Rate (eGFR) calculated using the 2020 Chronic Kidney Disease-Epi demiology (CKD-EPI) Collaborati on creatinine equation; units of measure are mL/min/1.73 m2. Results are only valid for adults (>=18 years) whose serum creatinine is in a steady state. eGFR calculation s are not valid for patients with acute kidney injury and for patients on dialysis. Creatinine- based estimates of kidney function may also be inaccurate in patients with reduced creatinine generation due to decreased muscle mass (e.g., malnutritio n, severe hypoalbumin emia, sarcopenia, chronic neuromuscul ar disease, amputations , severe heart failure or liver disease) and in patients with increased creatinine generation due to increased muscle mass (e.g., muscle builders, anabolic steroids) or increased dietary intake. As drug clearance is proportiona l to total GFR and not GFR indexed to body surface area (BSA), in individuals with a BSA substantial ly different than 1.73 m2, drug dosing should be based on the reported eGFR value de-indexed from BSA by multiplying by the individual' s BSA and dividing by 1.73. CKD is diagnosed based on abnormaliti es of kidney structure or function, present for >3 months, with implication s for health and disease. CKD is classified and staged based on cause, eGFR and albuminuria (quantified as urine albumin to creatinine ratio). An eGFR >60 mL/min/1.73 m2 in the absence of increased urine albumin excretion or structural abnormaliti es does not represent CKD. eGFR CKD Interpretat ion (mL/min/1.7 3 m2) stage >=90 G1 Normal 60-89 G2 Mild decrease 45-59 G3A Mild to moderate decrease 30-44 G3B Moderate to severe decrease 15-29 G4 Severe decrease <15 G5 Kidney failure Ordering Provider: Roslyn LAY Report Released Date/Time: Jan 13, 2025 08:27 AM Reporting Lab: [facility] [address] [facility] [phone] Performing Lab: [facility] [id number] [facility] [phone] [facility] PANEL 5 SODIUM [MOLES/VOL UME] IN SERUM OR PLASMA 134 mmol/L 136 - 145 01/13 L Specimen Type: PLASMA Comment: Estimated Glomerular Filtration Rate (eGFR) calculated using the 2020 Chronic Kidney Disease-Epi demiology (CKD-EPI) Collaborati on creatinine equation; units of measure are mL/min/1.73 m2. Results are only valid for adults (>=18 years) whose serum creatinine is in a steady state. eGFR calculation s are not valid for patients with acute kidney injury and for patients on dialysis. Creatinine- based estimates of kidney function may also be inaccurate in patients with reduced creatinine generation due to decreased muscle mass (e.g., malnutritio n, severe hypoalbumin emia, sarcopenia, chronic neuromuscul ar disease, amputations , severe heart failure or liver disease) and in patients with increased creatinine generation due to increased muscle mass (e.g., muscle builders, anabolic steroids) or increased dietary intake. As drug clearance is proportiona l to total GFR and not GFR indexed to body surface area (BSA), in individuals with a BSA substantial ly different than 1.73 m2, drug dosing should be based on the reported eGFR value de-indexed from BSA by multiplying by the individual' s BSA and dividing by 1.73. CKD is diagnosed based on abnormaliti es of kidney structure or function, present for >3 months, with implication s for health and disease. CKD is classified and staged based on cause, eGFR and albuminuria (quantified as urine albumin to creatinine ratio). An eGFR >60 mL/min/1.73 m2 in the absence of increased urine albumin excretion or structural abnormaliti es does not represent CKD. eGFR CKD Interpretat ion (mL/min/1.7 3 m2) stage >=90 G1 Normal 60-89 G2 Mild decrease 45-59 G3A Mild to moderate decrease 30-44 G3B Moderate to severe decrease 15-29 G4 Severe decrease <15 G5 Kidney failure Ordering Provider: Roslyn LAY Report Released Date/Time: Jan 13, 2025 08:27 AM Reporting Lab: [facility] [address] [facility] [phone] Performing Lab: [facility] [address] [phone] [facility] PANEL 5 POTASSIUM [MOLES/VOL UME] IN SERUM OR PLASMA 4.2 mmol/L 3.5 - 5.1 01/13 Specimen Type: PLASMA Comment: Estimated Glomerular Filtration Rate (eGFR) calculated using the 2020 Chronic Kidney Disease-Epi demiology (CKD-EPI) Collaborati on creatinine equation; units of measure are mL/min/1.73 m2. Results are only valid for adults (>=18 years) whose serum creatinine is in a steady state. eGFR calculation s are not valid for patients with acute kidney injury and for patients on dialysis. Creatinine- based estimates of kidney function may also be inaccurate in patients with reduced creatinine generation due to decreased muscle mass (e.g., malnutritio n, severe hypoalbumin emia, sarcopenia, chronic neuromuscul ar disease, amputations , severe heart failure or liver disease) and in patients with increased creatinine generation due to increased muscle mass (e.g., muscle builders, anabolic steroids) or increased dietary intake. As drug clearance is proportiona l to total GFR and not GFR indexed to body surface area (BSA), in individuals with a BSA substantial ly different than 1.73 m2, drug dosing should be based on the reported eGFR value de-indexed from BSA by multiplying by the individual' s BSA and dividing by 1.73. CKD is diagnosed based on abnormaliti es of kidney structure or function, present for >3 months, with implication s for health and disease. CKD is classified and staged based on cause, eGFR and albuminuria (quantified as urine albumin to creatinine ratio). An eGFR >60 mL/min/1.73 m2 in the absence of increased urine albumin excretion or structural abnormaliti es does not represent CKD. eGFR CKD Interpretat ion (mL/min/1.7 3 m2) stage >=90 G1 Normal 60-89 G2 Mild decrease 45-59 G3A Mild to moderate decrease 30-44 G3B Moderate to severe decrease 15-29 G4 Severe decrease <15 G5 Kidney failure Ordering Provider: Roslyn LAY Report Released Date/Time: Jan 13, 2025 08:27 AM Reporting Lab: [facility] [address] [phone] Performing Lab: [facility] [address] [phone] [facility] PANEL 5 CHLORIDE [MOLES/VOL UME] IN SERUM OR PLASMA 103 mmol/L 98 - 107 01/13 Specimen Type: PLASMA Comment: Estimated Glomerular Filtration Rate (eGFR) calculated using the 2020 Chronic Kidney Disease-Epi demiology (CKD-EPI) Collaborati on creatinine equation; units of measure are mL/min/1.73 m2. Results are only valid for adults (>=18 years) whose serum creatinine is in a steady state. eGFR calculation s are not valid for patients with acute kidney injury and for patients on dialysis. Creatinine- based estimates of kidney function may also be inaccurate in patients with reduced creatinine generation due to decreased muscle mass (e.g., malnutritio n, severe hypoalbumin emia, sarcopenia, chronic neuromuscul ar disease, amputations , severe heart failure or liver disease) and in patients with increased creatinine generation due to increased muscle mass (e.g., muscle builders, anabolic steroids) or increased dietary intake. As drug clearance is proportiona l to total GFR and not GFR indexed to body surface area (BSA), in individuals with a BSA substantial ly different than 1.73 m2, drug dosing should be based on the reported eGFR value de-indexed from BSA by multiplying by the individual' s BSA and dividing by 1.73. CKD is diagnosed based on abnormaliti es of kidney structure or function, present for >3 months, with implication s for health and disease. CKD is classified and staged based on cause, eGFR and albuminuria (quantified as urine albumin to creatinine ratio). An eGFR >60 mL/min/1.73 m2 in the absence of increased urine albumin excretion or structural abnormaliti es does not represent CKD. eGFR CKD Interpretat ion (mL/min/1.7 3 m2) stage >=90 G1 Normal 60-89 G2 Mild decrease 45-59 G3A Mild to moderate decrease 30-44 G3B Moderate to severe decrease 15-29 G4 Severe decrease <15 G5 Kidney failure Ordering Provider: Roslyn LAY Report Released Date/Time: Jan 13, 2025 08:27 AM Reporting Lab: [facility] [address] [phone] Performing Lab: [facility] [address] [phone] [facility] PANEL 5 CARBON DIOXIDE, TOTAL [MOLES/VOL UME] IN SERUM OR PLASMA 25 mmol/L 01/13 Specimen Type: PLASMA Comment: Estimated Glomerular Filtration Rate (eGFR) calculated using the 2020 Chronic Kidney Disease-Epi demiology (CKD-EPI) Collaborati on creatinine equation; units of measure are mL/min/1.73 m2. Results are only valid for adults (>=18 years) whose serum creatinine is in a steady state. eGFR calculation s are not valid for patients with acute kidney injury and for patients on dialysis. Creatinine- based estimates of kidney function may also be inaccurate in patients with reduced creatinine generation due to decreased muscle mass (e.g., malnutritio n, severe hypoalbumin emia, sarcopenia, chronic neuromuscul ar disease, amputations , severe heart failure or liver disease) and in patients with increased creatinine generation due to increased muscle mass (e.g., muscle builders, anabolic steroids) or increased dietary intake. As drug clearance is proportiona l to total GFR and not GFR indexed to body surface area (BSA), in individuals with a BSA substantial ly different than 1.73 m2, drug dosing should be based on the reported eGFR value de-indexed from BSA by multiplying by the individual' s BSA and dividing by 1.73. CKD is diagnosed based on abnormaliti es of kidney structure or function, present for >3 months, with implication s for health and disease. CKD is classified and staged based on cause, eGFR and albuminuria (quantified as urine albumin to creatinine ratio). An eGFR >60 mL/min/1.73 m2 in the absence of increased urine albumin excretion or structural abnormaliti es does not represent CKD. eGFR CKD Interpretat ion (mL/min/1.7 3 m2) stage >=90 G1 Normal 60-89 G2 Mild decrease 45-59 G3A Mild to moderate decrease 30-44 G3B Moderate to severe decrease 15-29 G4 Severe decrease <15 G5 Kidney failure Ordering Provider: Roslyn LAY Report Released Date/Time: Jan 13, 2025 08:27 AM Reporting Lab: [facility] [address] [phone] Performing Lab: [facility] [address] [phone] [facility] PANEL 5 CALCIUM [MASS/VOLU ME] IN SERUM OR PLASMA 9.6 mg/dL 8.4 - 10.2 01/13 Specimen Type: PLASMA Comment: Estimated Glomerular Filtration Rate (eGFR) calculated using the 2020 Chronic Kidney Disease-Epi demiology (CKD-EPI) Collaborati on creatinine equation; units of measure are mL/min/1.73 m2. Results are only valid for adults (>=18 years) whose serum creatinine is in a steady state. eGFR calculation s are not valid for patients with acute kidney injury and for patients on dialysis. Creatinine- based estimates of kidney function may also be inaccurate in patients with reduced creatinine generation due to decreased muscle mass (e.g., malnutritio n, severe hypoalbumin emia, sarcopenia, chronic neuromuscul ar disease, amputations , severe heart failure or liver disease) and in patients with increased creatinine generation due to increased muscle mass (e.g., muscle builders, anabolic steroids) or increased dietary intake. As drug clearance is proportiona l to total GFR and not GFR indexed to body surface area (BSA), in individuals with a BSA substantial ly different than 1.73 m2, drug dosing should be based on the reported eGFR value de-indexed from BSA by multiplying by the individual' s BSA and dividing by 1.73. CKD is diagnosed based on abnormaliti es of kidney structure or function, present for >3 months, with implication s for health and disease. CKD is classified and staged based on cause, eGFR and albuminuria (quantified as urine albumin to creatinine ratio). An eGFR >60 mL/min/1.73 m2 in the absence of increased urine albumin excretion or structural abnormaliti es does not represent CKD. eGFR CKD Interpretat ion (mL/min/1.7 3 m2) stage >=90 G1 Normal 60-89 G2 Mild decrease 45-59 G3A Mild to moderate decrease 30-44 G3B Moderate to severe decrease 15-29 G4 Severe decrease <15 G5 Kidney failure Ordering Provider: Roslyn LAY Report Released Date/Time: Jan 13, 2025 08:27 AM Reporting Lab: [facility] [address] [address] Performing Lab: [facility] [address] [phone] [facility] PANEL 5 PROTEIN [MASS/VOLU ME] IN SERUM OR PLASMA 7.9 g/dL 6.4 - 8.3 01/13 Specimen Type: PLASMA Comment: Estimated Glomerular Filtration Rate (eGFR) calculated using the 2020 Chronic Kidney Disease-Epi demiology (CKD-EPI) Collaborati on creatinine equation; units of measure are mL/min/1.73 m2. Results are only valid for adults (>=18 years) whose serum creatinine is in a steady state. eGFR calculation s are not valid for patients with acute kidney injury and for patients on dialysis. Creatinine- based estimates of kidney function may also be inaccurate in patients with reduced creatinine generation due to decreased muscle mass (e.g., malnutritio n, severe hypoalbumin emia, sarcopenia, chronic neuromuscul ar disease, amputations , severe heart failure or liver disease) and in patients with increased creatinine generation due to increased muscle mass (e.g., muscle builders, anabolic steroids) or increased dietary intake. As drug clearance is proportiona l to total GFR and not GFR indexed to body surface area (BSA), in individuals with a BSA substantial ly different than 1.73 m2, drug dosing should be based on the reported eGFR value de-indexed from BSA by multiplying by the individual' s BSA and dividing by 1.73. CKD is diagnosed based on abnormaliti es of kidney structure or function, present for >3 months, with implication s for health and disease. CKD is classified and staged based on cause, eGFR and albuminuria (quantified as urine albumin to creatinine ratio). An eGFR >60 mL/min/1.73 m2 in the absence of increased urine albumin excretion or structural abnormaliti es does not represent CKD. eGFR CKD Interpretat ion (mL/min/1.7 3 m2) stage >=90 G1 Normal 60-89 G2 Mild decrease 45-59 G3A Mild to moderate decrease 30-44 G3B Moderate to severe decrease 15-29 G4 Severe decrease <15 G5 Kidney failure Ordering Provider: Roslyn LAY Report Released Date/Time: Jan 13, 2025 08:27 AM Reporting Lab: [facility] [address] [phone] Performing Lab: [facility] [address] [phone] [facility] PANEL 5 ALBUMIN [MASS/VOLU ME] IN SERUM OR PLASMA 4.4 g/dL 3.5 - 5.2 01/13 Specimen Type: PLASMA Comment: Estimated Glomerular Filtration Rate (eGFR) calculated using the 2020 Chronic Kidney Disease-Epi demiology (CKD-EPI) Collaborati on creatinine equation; units of measure are mL/min/1.73 m2. Results are only valid for adults (>=18 years) whose serum creatinine is in a steady state. eGFR calculation s are not valid for patients with acute kidney injury and for patients on dialysis. Creatinine- based estimates of kidney function may also be inaccurate in patients with reduced creatinine generation due to decreased muscle mass (e.g., malnutritio n, severe hypoalbumin emia, sarcopenia, chronic neuromuscul ar disease, amputations , severe heart failure or liver disease) and in patients with increased creatinine generation due to increased muscle mass (e.g., muscle builders, anabolic steroids) or increased dietary intake. As drug clearance is proportiona l to total GFR and not GFR indexed to body surface area (BSA), in individuals with a BSA substantial ly different than 1.73 m2, drug dosing should be based on the reported eGFR value de-indexed from BSA by multiplying by the individual' s BSA and dividing by 1.73. CKD is diagnosed based on abnormaliti es of kidney structure or function, present for >3 months, with implication s for health and disease. CKD is classified and staged based on cause, eGFR and albuminuria (quantified as urine albumin to creatinine ratio). An eGFR >60 mL/min/1.73 m2 in the absence of increased urine albumin excretion or structural abnormaliti es does not represent CKD. eGFR CKD Interpretat ion (mL/min/1.7 3 m2) stage >=90 G1 Normal 60-89 G2 Mild decrease 45-59 G3A Mild to moderate decrease 30-44 G3B Moderate to severe decrease 15-29 G4 Severe decrease <15 G5 Kidney failure Ordering Provider: Roslyn LAY Report Released Date/Time: Jan 13, 2025 08:27 AM Reporting Lab: [facility] [address] [phone] Performing Lab: [facility] [address] [phone] [facility] PANEL 5 BILIRUBIN. TOTAL [MASS/VOLU ME] IN SERUM OR PLASMA 0.4 mg/dL 0.2 - 1.2 01/13 Specimen Type: PLASMA Comment: Estimated Glomerular Filtration Rate (eGFR) calculated using the 2020 Chronic Kidney Disease-Epi demiology (CKD-EPI) Collaborati on creatinine equation; units of measure are mL/min/1.73 m2. Results are only valid for adults (>=18 years) whose serum creatinine is in a steady state. eGFR calculation s are not valid for patients with acute kidney injury and for patients on dialysis. Creatinine- based estimates of kidney function may also be inaccurate in patients with reduced creatinine generation due to decreased muscle mass (e.g., malnutritio n, severe hypoalbumin emia, sarcopenia, chronic neuromuscul ar disease, amputations , severe heart failure or liver disease) and in patients with increased creatinine generation due to increased muscle mass (e.g., muscle builders, anabolic steroids) or increased dietary intake. As drug clearance is proportiona l to total GFR and not GFR indexed to body surface area (BSA), in individuals with a BSA substantial ly different than 1.73 m2, drug dosing should be based on the reported eGFR value de-indexed from BSA by multiplying by the individual' s BSA and dividing by 1.73. CKD is diagnosed based on abnormaliti es of kidney structure or function, present for >3 months, with implication s for health and disease. CKD is classified and staged based on cause, eGFR and albuminuria (quantified as urine albumin to creatinine ratio). An eGFR >60 mL/min/1.73 m2 in the absence of increased urine albumin excretion or structural abnormaliti es does not represent CKD. eGFR CKD Interpretat ion (mL/min/1.7 3 m2) stage >=90 G1 Normal 60-89 G2 Mild decrease 45-59 G3A Mild to moderate decrease 30-44 G3B Moderate to severe decrease 15-29 G4 Severe decrease <15 G5 Kidney failure Ordering Provider: Roslyn LAY Report Released Date/Time: Jan 13, 2025 08:27 AM Reporting Lab: EDD HAHN [address] [address] Performing Lab: EDD HAHN [address] [address] [facility] PANEL 5 ASPARTATE AMINOTRANS FERASE [ENZYMATIC ACTIVITY/V OLUME] IN SERUM OR PLASMA 24 U/L 5 - 34 01/13 Specimen Type: PLASMA Comment: Estimated Glomerular Filtration Rate (eGFR) calculated using the 2020 Chronic Kidney Disease-Epi demiology (CKD-EPI) Collaborati on creatinine equation; units of measure are mL/min/1.73 m2. Results are only valid for adults (>=18 years) whose serum creatinine is in a steady state. eGFR calculation s are not valid for patients with acute kidney injury and for patients on dialysis. Creatinine- based estimates of kidney function may also be inaccurate in patients with reduced creatinine generation due to decreased muscle mass (e.g., malnutritio n, severe hypoalbumin emia, sarcopenia, chronic neuromuscul ar disease, amputations , severe heart failure or liver disease) and in patients with increased creatinine generation due to increased muscle mass (e.g., muscle builders, anabolic steroids) or increased dietary intake. As drug clearance is proportiona l to total GFR and not GFR indexed to body surface area (BSA), in individuals with a BSA substantial ly different than 1.73 m2, drug dosing should be based on the reported eGFR value de-indexed from BSA by multiplying by the individual' s BSA and dividing by 1.73. CKD is diagnosed based on abnormaliti es of kidney structure or function, present for >3 months, with implication s for health and disease. CKD is classified and staged based on cause, eGFR and albuminuria (quantified as urine albumin to creatinine ratio). An eGFR >60 mL/min/1.73 m2 in the absence of increased urine albumin excretion or structural abnormaliti es does not represent CKD. eGFR CKD Interpretat ion (mL/min/1.7 3 m2) stage >=90 G1 Normal 60-89 G2 Mild decrease 45-59 G3A Mild to moderate decrease 30-44 G3B Moderate to severe decrease 15-29 G4 Severe decrease <15 G5 Kidney failure Ordering Provider: Roslyn LAY Report Released Date/Time: Jan 13, 2025 08:27 AM Reporting Lab: EDD HAHN [address] [address] Performing Lab: EDD HAHN [address] [address] [facility] PANEL 5 ALANINE AMINOTRANS FERASE [ENZYMATIC ACTIVITY/V OLUME] IN SERUM OR PLASMA 19 U/L 0 - 55 07/28 /2025 Specimen Type: PLASMA Comment: Estimated Glomerular Filtration Rate (eGFR) calculated using the 2020 Chronic Kidney Disease-Epi demiology (CKD-EPI) Collaborati on creatinine equation; units of measure are mL/min/1.73 m2. Results are only valid for adults (>=18 years) whose serum creatinine is in a steady state. eGFR calculation s are not valid for patients with acute kidney injury and for patients on dialysis. Creatinine- based estimates of kidney function may also be inaccurate in patients with reduced creatinine generation due to decreased muscle mass (e.g., malnutritio n, severe hypoalbumin emia, sarcopenia, chronic neuromuscul ar disease, amputations , severe heart failure or liver disease) and in patients with increased creatinine generation due to increased muscle mass (e.g., muscle builders, anabolic steroids) or increased dietary intake. As drug clearance is proportiona l to total GFR and not GFR indexed to body surface area (BSA), in individuals with a BSA substantial ly different than 1.73 m2, drug dosing should be based on the reported eGFR value de-indexed from BSA by multiplying by the individual' s BSA and dividing by 1.73. CKD is diagnosed based on abnormaliti es of kidney structure or function, present for >3 months, with implication s for health and disease. CKD is classified and staged based on cause, eGFR and albuminuria (quantified as urine albumin to creatinine ratio). An eGFR >60 mL/min/1.73 m2 in the absence of increased urine albumin excretion or structural abnormaliti es does not represent CKD. eGFR CKD Interpretat ion (mL/min/1.7 3 m2) stage >=90 G1 Normal 60-89 G2 Mild decrease 45-59 G3A Mild to moderate decrease 30-44 G3B Moderate to severe decrease 15-29 G4 Severe decrease <15 G5 Kidney failure Ordering Provider: Roslyn LAY Report Released Date/Time: Jan 13, 2025 08:27 AM Reporting Lab: EDD HAHN [address] [address] Performing Lab: EDD HAHN [facility] [address] [facility] [address] [facility] PANEL 5 ANION GAP 3 IN SERUM OR PLASMA 6 meq/L 3 - 19 01/13 Specimen Type: PLASMA Comment: Estimated Glomerular Filtration Rate (eGFR) calculated using the 2020 Chronic Kidney Disease-Epi demiology (CKD-EPI) Collaborati on creatinine equation; units of measure are mL/min/1.73 m2. Results are only valid for adults (>=18 years) whose serum creatinine is in a steady state. eGFR calculation s are not valid for patients with acute kidney injury and for patients on dialysis. Creatinine- based estimates of kidney function may also be inaccurate in patients with reduced creatinine generation due to decreased muscle mass (e.g., malnutritio n, severe hypoalbumin emia, sarcopenia, chronic neuromuscul ar disease, amputations , severe heart failure or liver disease) and in patients with increased creatinine generation due to increased muscle mass (e.g., muscle builders, anabolic steroids) or increased dietary intake. As drug clearance is proportiona l to total GFR and not GFR indexed to body surface area (BSA), in individuals with a BSA substantial ly different than 1.73 m2, drug dosing should be based on the reported eGFR value de-indexed from BSA by multiplying by the individual' s BSA and dividing by 1.73. CKD is diagnosed based on abnormaliti es of kidney structure or function, present for >3 months, with implication s for health and disease. CKD is classified and staged based on cause, eGFR and albuminuria (quantified as urine albumin to creatinine ratio). An eGFR >60 mL/min/1.73 m2 in the absence of increased urine albumin excretion or structural abnormaliti es does not represent CKD. eGFR CKD Interpretat ion (mL/min/1.7 3 m2) stage >=90 G1 Normal 60-89 G2 Mild decrease 45-59 G3A Mild to moderate decrease 30-44 G3B Moderate to severe decrease 15-29 G4 Severe decrease <15 G5 Kidney failure Ordering Provider: Roslyn LAY Report Released Date/Time: Jan 13, 2025 08:27 AM Reporting Lab: EDD HAHN [facility] [address] [facility] [address] Performing Lab: EDD HAHN [facility] [address] [facility] [address] [facility] PANEL 5 ALKALINE PHOSPHATAS E [ENZYMATIC ACTIVITY/V OLUME] IN SERUM OR PLASMA 70 U/L 40 - 150 01/13 Specimen Type: PLASMA Comment: Estimated Glomerular Filtration Rate (eGFR) calculated using the 2020 Chronic Kidney Disease-Epi demiology (CKD-EPI) Collaborati on creatinine equation; units of measure are mL/min/1.73 m2. Results are only valid for adults (>=18 years) whose serum creatinine is in a steady state. eGFR calculation s are not valid for patients with acute kidney injury and for patients on dialysis. Creatinine- based estimates of kidney function may also be inaccurate in patients with reduced creatinine generation due to decreased muscle mass (e.g., malnutritio n, severe hypoalbumin emia, sarcopenia, chronic neuromuscul ar disease, amputations , severe heart failure or liver disease) and in patients with increased creatinine generation due to increased muscle mass (e.g., muscle builders, anabolic steroids) or increased dietary intake. As drug clearance is proportiona l to total GFR and not GFR indexed to body surface area (BSA), in individuals with a BSA substantial ly different than 1.73 m2, drug dosing should be based on the reported eGFR value de-indexed from BSA by multiplying by the individual' s BSA and dividing by 1.73. CKD is diagnosed based on abnormaliti es of kidney structure or function, present for >3 months, with implication s for health and disease. CKD is classified and staged based on cause, eGFR and albuminuria (quantified as urine albumin to creatinine ratio). An eGFR >60 mL/min/1.73 m2 in the absence of increased urine albumin excretion or structural abnormaliti es does not represent CKD. eGFR CKD Interpretat ion (mL/min/1.7 3 m2) stage >=90 G1 Normal 60-89 G2 Mild decrease 45-59 G3A Mild to moderate decrease 30-44 G3B Moderate to severe decrease 15-29 G4 Severe decrease <15 G5 Kidney failure Ordering Provider: Roslyn LAY Report Released Date/Time: Jan 13, 2025 08:27 AM Reporting Lab: EDD SELMA [facility] [address] [facility] [address] Performing Lab: EDD SELMA [facility] [address] [facility] [address] [facility] PANEL 5 GLOMERULAR FILTRATION RATE/1.73 SQ M.PREDICTE D [VOLUME RATE/AREA] IN SERUM, PLASMA OR BLOOD BY CREATININE -BASED FORMULA (CKD-EPI 2020) 51 01/13 Specimen Type: PLASMA Comment: Estimated Glomerular Filtration Rate (eGFR) calculated using the 2020 Chronic Kidney Disease-Epi demiology (CKD-EPI) Collaborati on creatinine equation; units of measure are mL/min/1.73 m2. Results are only valid for adults (>=18 years) whose serum creatinine is in a steady state. eGFR calculation s are not valid for patients with acute kidney injury and for patients on dialysis. Creatinine- based estimates of kidney function may also be inaccurate in patients with reduced creatinine generation due to decreased muscle mass (e.g., malnutritio n, severe hypoalbumin emia, sarcopenia, chronic neuromuscul ar disease, amputations , severe heart failure or liver disease) and in patients with increased creatinine generation due to increased muscle mass (e.g., muscle builders, anabolic steroids) or increased dietary intake. As drug clearance is proportiona l to total GFR and not GFR indexed to body surface area (BSA), in individuals with a BSA substantial ly different than 1.73 m2, drug dosing should be based on the reported eGFR value de-indexed from BSA by multiplying by the individual' s BSA and dividing by 1.73. CKD is diagnosed based on abnormaliti es of kidney structure or function, present for >3 months, with implication s for health and disease. CKD is classified and staged based on cause, eGFR and albuminuria (quantified as urine albumin to creatinine ratio). An eGFR >60 mL/min/1.73 m2 in the absence of increased urine albumin excretion or structural abnormaliti es does not represent CKD. eGFR CKD Interpretat ion (mL/min/1.7 3 m2) stage >=90 G1 Normal 60-89 G2 Mild decrease 45-59 G3A Mild to moderate decrease 30-44 G3B Moderate to severe decrease 15-29 G4 Severe decrease <15 G5 Kidney failure Ordering Provider: Roslyn LAY Report Released Date/Time: Jan 13, 2025 08:27 AM Reporting Lab: [address] [address] Performing Lab: [address] [phone] [place] [address] URINALYS IS COLOR OF URINE Colorles s 02/08 Specimen Type: URINE Comment: Microscopic not indicated Ordering Provider: ANGELIQUE TOLEDO Report Released Date/Time: Feb 08, 2024 01:14 PM Reporting Lab: [address] [address] Performing Lab: [address] [phone] [place] [address] URINALYS IS APPEARANCE OF URINE Clear 02/08 Specimen Type: URINE Comment: Microscopic not indicated Ordering Provider: ANGELIQUE TOLEDO Report Released Date/Time: Feb 08, 2024 01:14 PM Reporting Lab: [address] [address] Performing Lab: [address] [phone] [place] [address] URINALYS IS UROBILINOG EN [MASS/VOLU ME] IN URINE BY TEST STRIP Normalmg /dL 02/08 Specimen Type: URINE Comment: Microscopic not indicated Ordering Provider: ANGELIQUE TOLEDO Report Released Date/Time: Feb 08, 2024 01:14 PM Reporting Lab: [address] [address] Performing Lab: [address] [address] [facility] URINALYS IS HEMOGLOBIN [PRESENCE] IN URINE BY TEST STRIP Negative 02/08 Specimen Type: URINE Comment: Microscopic not indicated Ordering Provider: ANGELIQUE TOLEDO Report Released Date/Time: Feb 08, 2024 01:14 PM Reporting Lab: [address] [address] Performing Lab: [address] [phone] [place] [address] URINALYS IS BILIRUBIN. TOTAL [PRESENCE] IN URINE BY TEST STRIP Negative 02/08 Specimen Type: URINE Comment: Microscopic not indicated Ordering Provider: ANGELIQUE TOLEDO Report Released Date/Time: Feb 08, 2024 01:14 PM Reporting Lab: [address] [address] Performing Lab: [address] [phone] [place] [address] URINALYS IS KETONES [MASS/VOLU ME] IN URINE BY TEST STRIP Negative mg/dL 02/08 Specimen Type: URINE Comment: Microscopic not indicated Ordering Provider: ANGELIQUE TOLEDO Report Released Date/Time: Feb 08, 2024 01:14 PM Reporting Lab: [address] [address] Performing Lab: [address] [address] [facility] URINALYS IS PROTEIN [MASS/VOLU ME] IN URINE BY TEST STRIP Negative mg/dL 02/08 Specimen Type: URINE Comment: Microscopic not indicated Ordering Provider: ANGELIQUE TOLEDO Report Released Date/Time: Feb 08, 2024 01:14 PM Reporting Lab: [address] [address] Performing Lab: [address] [address] [facility] URINALYS IS PH OF URINE BY TEST STRIP 6.5 4.5 - 8.0 02/08 Specimen Type: URINE Comment: Microscopic not indicated Ordering Provider: ANGELIQUE TOLEDO Report Released Date/Time: Feb 08, 2024 01:14 PM Reporting Lab: [address] [address] Performing Lab: [address] [address] [facility] URINALYS IS NITRITE [PRESENCE] IN URINE BY TEST STRIP Negative 02/08 Specimen Type: URINE Comment: Microscopic not indicated Ordering Provider: ANGELIQUE TOLEDO Report Released Date/Time: Feb 08, 2024 01:14 PM Reporting Lab: [address] [address] Performing Lab: [address] [address] [facility] URINALYS IS LEUKOCYTE ESTERASE [PRESENCE] IN URINE BY TEST STRIP Negative 02/08 Specimen Type: URINE Comment: Microscopic not indicated Ordering Provider: ANGELIQUE TOLEDO Report Released Date/Time: Feb 08, 2024 01:14 PM Reporting Lab: [address] [address] Performing Lab: [place] [phone] [place] [address] URINALYS IS SPECIFIC GRAVITY OF URINE <1.005 1.005 - 1.030 02/08 L Specimen Type: URINE Comment: Microscopic not indicated Ordering Provider: ANGELIQUE TOLEDO Report Released Date/Time: Feb 08, 2024 01:14 PM Reporting Lab: [address] [address] Performing Lab: [address] [phone] [place] [address] URINALYS IS GLUCOSE [MASS/VOLU ME] IN URINE BY TEST STRIP Negative mg/dL 02/08 Specimen Type: URINE Comment: Microscopic not indicated Ordering Provider: ANGELIQUE TOLEDO Report Released Date/Time: Feb 08, 2024 01:14 PM Reporting Lab: [address] [address] Performing Lab: [phone] [place] [address] PTH INTACT (ORDAZ) PARATHYRIN .INTACT [MASS/VOLU ME] IN SERUM OR PLASMA 49.7 pg/mL 8.7 - 77.1 02/08 Specimen Type: PLASMA Comment: For intraoperat joe testing samples drawn 10 minutes post resection should decrease >50% from the highest baseline. STAT assay time 18 minutes. Dialysis patients are typically maintained by using multiples of the reference range upper limit: this is the Ordaz assay, a 2nd generation intact PTH method. Hemolysis and high levels of protein can interfere. Heterophili c antibodies can interfere. Ordering Provider: ANGELIQUE TOLEDO Report Released Date/Time: Feb 08, 2024 01:14 PM Reporting Lab: [address] [address] Performing Lab: [address] [address] [facility] CBC/PLT LEUKOCYTES [#/VOLUME] IN BLOOD BY AUTOMATED COUNT 7.4 10*3/uL 5.0 - 10.0 02/08 Specimen Type: BLOOD No comment entered. Ordering Provider: ANGELIQUE TOLEDO Report Released Date/Time: Feb 08, 2024 01:14 PM Reporting Lab: [address] [address] Performing Lab: [address] [address] [facility] CBC/PLT ERYTHROCYT ES [#/VOLUME] IN BLOOD BY AUTOMATED COUNT 4.11 10*6/uL 4.6 - 6.2 02/08 L Specimen Type: BLOOD No comment entered. Ordering Provider: ANGELIQUE TOLEDO Report Released Date/Time: Feb 08, 2024 01:14 PM Reporting Lab: [address] [address] Performing Lab: [address] [address] [facility] CBC/PLT HEMOGLOBIN [MASS/VOLU ME] IN BLOOD 13.1 g/dL 14.0 - 18.0 02/08 L Specimen Type: BLOOD No comment entered. Ordering Provider: ANGELIQUE TOLEDO Report Released Date/Time: Feb 08, 2024 01:14 PM Reporting Lab: [address] [address] Performing Lab: [address] [phone] CBC/PLT HEMATOCRIT [VOLUME FRACTION] OF BLOOD BY AUTOMATED COUNT 41.1 42.0 - 52.0 02/08 L Specimen Type: BLOOD No comment entered. Ordering Provider: ANGELIQUE TOLEDO Report Released Date/Time: Feb 08, 2024 01:14 PM Reporting Lab: [place] [phone] Performing Lab: [address] CBC/PLT MCV [ENTITIC VOLUME] BY AUTOMATED COUNT 100.0 fL 80.0 - 94.0 02/08 H Specimen Type: BLOOD No comment entered. Ordering Provider: ANGELIQUE TOLEDO Report Released Date/Time: Feb 08, 2024 01:14 PM Reporting Lab: [place] [address] Performing Lab: [address] CBC/PLT MCH [ENTITIC MASS] BY AUTOMATED COUNT 31.9 pg 27.0 - 31.0 02/08 H Specimen Type: BLOOD No comment entered. Ordering Provider: ANGELIQUE TOLEDO Report Released Date/Time: Feb 08, 2024 01:14 PM Reporting Lab: [place] [phone] Performing Lab: [address] CBC/PLT MCHC [MASS/VOLU ME] BY AUTOMATED COUNT 31.9 g/dL 32.0 - 36.0 02/08 L Specimen Type: BLOOD No comment entered. Ordering Provider: ANGELQIUE TOLEDO Report Released Date/Time: Feb 08, 2024 01:14 PM Reporting Lab: [place] [phone] Performing Lab: [address] CBC/PLT PLATELETS [#/VOLUME] IN BLOOD 149 10*3/uL 150 - 450 02/08 L Specimen Type: BLOOD No comment entered. Ordering Provider: ANGELIQUE TOLEDO Report Released Date/Time: Feb 08, 2024 01:14 PM Reporting Lab: [place] [address] Performing Lab: [address] CBC/PLT PLATELET MEAN VOLUME [ENTITIC VOLUME] IN BLOOD 10.9 fL 9.0 - 13.1 02/08 Specimen Type: BLOOD No comment entered. Ordering Provider: ANGELIQUE TOLEDO Report Released Date/Time: Feb 08, 2024 01:14 PM Reporting Lab: [place] [address] Performing Lab: [address] CBC/PLT ERYTHROCYT E DISTRIBUTI ON WIDTH [ENTITIC VOLUME] BY AUTOMATED COUNT 13.7 11.0 - 16.0 02/08 Specimen Type: BLOOD No comment entered. Ordering Provider: ANGELIQUE TOLEDO Report Released Date/Time: Feb 08, 2024 01:14 PM Reporting Lab: [place] [address] Performing Lab: [address] CBC/PLT NUCLEATED ERYTHROCYT ES/100 ERYTHROCYT ES IN BLOOD 0.0 0.0 - 0.0 02/08 Specimen Type: BLOOD No comment entered. Ordering Provider: ANGELIQUE TOLEDO Report Released Date/Time: Feb 08, 2024 01:14 PM Reporting Lab: [place] [phone] Performing Lab: [address] 25-OH VITAMIN D 25-HYDROXY VITAMIN D3 [MASS/VOLU ME] IN SERUM OR PLASMA 59.9 ng/mL 20.0 - 50.0 02/08 H Specimen Type: SERUM Comment: The National Institutes of Health (NIH) recommendat ions state: <12 ng/mL - Deficient 20 - 50 ng/mL - Optimal Levels - adequate for most people. >50 ng/mL - Increased risk of hypercalciu guero/other health problems - clinical correlation is required. These reference ranges represent clinical decision values rather than population- based reference values. Ordering Provider: ANGELIQUE TOLEDO Report Released Date/Time: Feb 08, 2024 01:14 PM Reporting Lab: EDD HAHN [facility] [address] [facility] [address] Performing Lab: EDD HAHN [facility] [address] [facility] [address] [facility] Vital Signs Combined list of inpatient and outpatient Vital Signs from Department of Defense and Veterans Affairs, ranging from 12 months to all on record, depending upon the facility. Vital Sign Value Date Comments Source SYSTOLIC BLOOD PRESSURE 132 01/13/2025 08:27:01 [facility] DIASTOLIC BLOOD PRESSURE 70 01/13/2025 08:27:01 [facility] PULSE OXIMETRY 100 % 01/13/2025 08:27:01 [facility] 174 01/13/2025 08:27:01 [facility] BMI 30 kg/m2 01/13/2025 08:27:01 [facility] PAIN 0 01/13/2025 08:27:01 DAVEIN [facility] HEIGHT 64 01/13/2025 08:27:01 [facility] TEMPERATURE 97.8 01/13/2025 08:27:01 ZOEY MCCALL [facility] PULSE 60 01/13/2025 08:27:01 [place] [facility] RESPIRATION 12 01/13/2025 08:27:01 [facility] SYSTOLIC BLOOD PRESSURE 126 03/13/2024 09:13:12 [facility] DIASTOLIC BLOOD PRESSURE 69 03/13/2024 09:13:12 [facility] PULSE OXIMETRY 99 03/13/2024 09:13:12 [facility] WEIGHT 178 03/13/2024 09:13:12 [facility] BMI 31 kg/m2 03/13/2024 09:13:12 RUIZ HERRON [facility] PAIN 0 03/13/2024 09:13:12 RUIZ HERRON [facility] TEMPERATURE 97.2 03/13/2024 09:13:12 ZOEY MCCALL [facility] PULSE 59 03/13/2024 09:13:12 RUIZ HERRON [facility] RESPIRATION 16 03/13/2024 09:13:12 ZOEY MCCALL [facility] SYSTOLIC BLOOD PRESSURE 152 02/28/2024 09:46:57 VEL [facility] DIASTOLIC BLOOD PRESSURE 72 02/28/2024 09:46:57 [facility] SYSTOLIC BLOOD PRESSURE 153 02/09/2024 08:55:00 [facility] DIASTOLIC BLOOD PRESSURE 68 02/09/2024 08:55:00 [facility] PULSE OXIMETRY 99 02/09/2024 08:55:00 L BETTIE [facility] WEIGHT 168.0 02/09/2024 08:55:00 RUIZ HERRON [facility] BMI 29 kg/m2 02/09/2024 08:55:00 RUIZ HERRON [facility] PAIN 4 02/09/2024 08:55:00 RUIZ HERRON [facility] HEIGHT 64.0 02/09/2024 08:55:00 RUIZ HERRON [facility] TEMPERATURE 98.5 02/09/2024 08:55:00 ZOEY MCCALL [facility] PULSE 59 02/09/2024 08:55:00 RUIZ HERRON [facility] RESPIRATION 16 02/09/2024 08:55:00 ZOEY MCCALL [facility] Encounters Combined list of: 1) Encounters from Department of Veterans Affairs facilities going backup to the last 18 months, not all VA inpatient encounters are included; 2) Encounters from the Department of Defense facilities going backup to 280 months. Location Location Details Encounter Type Encounter Number Reason For Visit Attending Provider ADM Date DC Date Status Disposition Source [facility] DENTAL BITE[facility] [id number] Diagnos is: ICD-10- CM K03.6 Deposit s [accret ions] on teeth ST SONAL PAYAN 07/25 [place] [facility] Outpatient Encounter [id number] Kenny MACHADO 07/27 [place] [facility] Outpatient Encounter [id number] Diagnos is: ICD-10- CM R19.7 Diarrhe a, unspeci sagar ROSA DIXON DARON 07/27 [place] Outpatient Encounter [id number] 08/01 [place] [facility] [facility] Out[facility] Encounter [id number] 08/30 [place] [facility] Outpatient Encounter [id number] 10/02 [place] Outpatient Encounter [id number] 10/02 [place] [facility] Outpatient Encounter [id number] 10/17 [place] [facility] OFFICE O/P EST MOD 30 MIN [id number] Diagnos is: ICD-10- CM I10 Essenti al (primar y) hyperte nsion JANIYA BURRELL 10/17 [place] [facility] CASE MGMT-ORAL HE[facility] LIT [id number] Diagnos is: ICD-10- CM K02.51 Dental caries on pit and fissure surface limited to enamel LINA MARTINEZ 10/22 [place] [facility] DENTAL BITEWING SINGLE IMAGE [id number] Diagnos is: ICD-10- CM K02.52 Dental caries on pit and fissure surfc penetra t into dentin HARMONY MARTINEZ P 11/06 [place] [facility] CROWN PORCELAIN/ CERAMIC SUBS [id number] Diagnos is: ICD-10- CM K02.52 Dental caries on pit and fissure surfc penetra t into dentin GALECIO VERALARRY L 12/24 [place] [facility] OFFICE O/P EST MOD 30 MIN [id number] Diagnos is: ICD-10- CM N18.31 Chronic kidney disease , stage 3a Mina TOLEDO 02/08 [place] Outpatient Encounter [id number] 02/13 [place] Outpatient Encounter [id number] 02/22 [place] PERIODIC ORAL EVAL EST [id number] Diagnos is: ICD-10- CM K02.51 Dental caries on pit and fissure surface limited to enamel LINA MARTINEZ L 02/27 [place] [facility] Outpatient Encounter [id number] 03/06 [place] Outpatient Encounter [id number] 03/07 [place] [facility] Outpatient Encounter [id number] 03/12 [place] OFFICE O/P EST MOD 30 MIN [id number] Diagnos is: ICD-10- CM I10 Essenti al (primar y) hyperte ami VINCENT LAY 03/13 [place] [facility] Outpatient Encounter [id number] 03/15 [place] [facility] CASE [facility]MT-[facility] LIT [id number] Diagnos is: ICD-10- CM K02.51 Dental caries on pit and fissure surface limited to enamel LINA MARTINEZ L 08/27 [place] [facility] Outpatient Encounter [id number] 08/27 [place] LIMITED OCCLUSAL ADJUSTMENT [id number] Diagnos is: ICD-10- CM K02.52 Dental caries on pit and fissure surfc penetra t into dentin HARMONY MARTINEZ P 09/10 [place] [facility] COMPRE OPH EXAM EST PT 1/> [id number] Diagnos is: ICD-10- CM E11.9 Type 2 diabete s mellitu s without complic ations JENIFER GODOY SYD N 10/08 [place] [facility] Outpatient Encounter [id number] 01/10 [place] OFFICE O/P EST MOD 30 MIN [id number] Diagnos is: ICD-10- CM I10 Essenti al (primar y) hyperte ami VINCENT LAY 01/13 [place] [facility] PH1 ASSMT&MGMT NQHP 5-10 [id number] Diagnos is: ICD-10- CM 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 Social History Type Response Date Comment Source Tobacco smoking status NHIS [place]-TOBACCO NEVER USED OTHER TYPE 01/13/2025 [facility] History of tobacco use [place]-TOBACCO USE FORMER CIGARETTES 01/13/2025 [facility] History of tobacco use [place]-TOBACCO USER EVERY DAY 02/09/2024 [facility] History of tobacco use [place]-TOBACCO FORMER USER 12/07/2022 [facility] History of tobacco use [place]-TOBACCO FORMER USER 02/10/2021 [facility] History of tobacco use [place]-TOBACCO FORMER USER 02/17/2020 [facility]23/2019 [facility] History of tobacco use V9 QUIT TOBACCO >7 YEARS AGO 04/17/2017 [facility] History of tobacco use V9 QUIT TOBACCO >7 YEARS AGO 10/12/2015 [facility] History of tobacco use V9 QUIT TOBACCO IN THE LAST 12 MONTHS 09/12/2014 [facility] History of tobacco use V9 QUIT TOBACCO >12 MO and <7 YRS AGO 06/21/2013 [facility] History of tobacco use V9 CURRENT TOBACCO USER 02/02/2012 [facility] History of tobacco use V9 CURRENT TOBACCO USER 02/01/2012 [facility] History of tobacco use V9 QUIT TOBACCO >7 YEARS AGO 01/18/2011 [facility] History of tobacco use V9 LIFETIME NON-USER OF TOBACCO 05/09/2006 [facility] History of tobacco use HF V9 CURRENT NON-SMOKER 11/07/2005 5+ yrs ago [facility] History of tobacco use HF V9 CURRENT NON-SMOKER 03/12/2004 quit 4-5yrs ago [facility] Plan of Care List of future care activities from Department of [facility] facilities. Additional future care activities may be listed in the Assessment and Plan section. Date/Time Care Activity Care Activity Detail Facili ty 02/27/2025 AMBULATORY - NONE [facility]
--- NOTE | 2025-02-19 08:30 | MR_ITS ---
FINAL REPORT CLINICAL HISTORY: Right Shoulder pain COMPARISON: None FINDINGS: Multi planar MR imaging of the right shoulder was performed. There is complete disruption of the supraspinatus tendon with retraction measuring 4.8 cm. There is no abnormal fluid in the subacromial/subdeltoid bursa. Tear of the anterior labrum. Posterior labrum intact. The biceps tendon appears intact. Extensive tendinosis of the distal subscapularis tendon with a tear near the attachment, well-seen on images 12 through 14 of series 3. Moderately advanced hypertrophic changes of the acromioclavicular joint. Fluid seen throughout the subdeltoid/subacromial bursa. The humeral head is superiorly subluxed relative to the bony glenoid. IMPRESSION: Complete disruption and proximal retraction of the supraspinatus tendon. Extensive tendinosis with partial intrasubstance tear of the subscapularis tendon. Tear of the anterior labrum. Advanced hypertrophic changes of the acromioclavicular joint. Reviewed, Interpreted and Dictated by Demetrio Miner MD Transcribed by Breonna Osorio Authenticated and [facility]
--- OUTSIDE RECORDS SUMMARY | 2025-02-19 08:34 | XMS_ITS | Clinical Summary ---
Author Organization [facility] Address [address] [place] [id number] Care Team Providers Care Senior Group Manager Name Role Phone Unavailable Primary Care [...]
== END 2025-02-19 23:59 | disposition home or self-care (01) ==
LOC: RAD 08:16
PROVIDERS: PCP Nurse Practitioner Family; Visit Provider Physician Assistant
DX: M75.121 Complete rotator cuff tear or rupture of right shoulder, not specified as traumatic (principal); M77.8 Other enthesopathies, not elsewhere classified; S43.491A Other sprain of right shoulder joint, initial encounter; M19.011 Primary osteoarthritis, right shoulder; M75.21 Bicipital tendinitis, right shoulder; M67.911 Unspecified disorder of synovium and tendon, right shoulder
CPT/HCPCS: 73221

== ENCOUNTER 2025-05-05 10:59 | Outpatient (CLI) | payer MEDICARE, SELFPAY ==
--- NOTE | 2025-05-05 11:12 | XR_ITS ---
FINAL REPORT TECHNIQUE: Chest PA & Lateral CLINICAL HISTORY: dyspnea, cough COMPARISON: 12/18/2014 FINDINGS: 2 views of the chest were performed. The patient has undergone a prior midline sternotomy. The heart size is normal. The mediastinum is within normal limits. There is no acute cardiopulmonary process. Chronic changes are present in the lung bases. There are no pleural effusions. There is no pneumothorax. The bony thorax appears intact. IMPRESSION: Chronic changes in the lung bases, with no acute cardiopulmonary process. Reviewed, Interpreted and Dictated by Demetrio Miner MD Transcribed by Lian Fisher Authenticated and [facility]
== END 2025-05-05 23:59 ==
LOC: RAD 11:01
PROVIDERS: PCP Nurse Practitioner Family; Visit Provider Nurse Practitioner Family
DX: J98.4 Other disorders of lung (principal)
CPT/HCPCS: 71046